=== PATIENT | male | born 1990 | race Caucasian/White ===

== ENCOUNTER 2019-06-06 18:04 | Inpatient (IN) | payer SELFPAY ==
--- NOTE | 2019-06-06 19:39 | ED ---
Shortness of Breath - HPI Summary HPI Summary: Pt is a 28 y/o M presenting to the ED with a chief complaint of shortness of breath. He states this initially came on around 3-4 days ago with sharp pains in the L side of his chest. Yesterday, 06/05, he went to [facility] for the pain, where they found pneumonia and pus pockets in his lungs, but he left AMA. He also notes fever, highest of 101, and R shoulder pain. He denies cough, recent travel, or daily medications. He states he is an IV drug user ( heroin) and a smoker. - History of Current Complaint Chief Complaint: EDShortnessOfBreath Time Seen by Provider: 06/06/19 19:28 Hx Obtained From: Patient Onset/Duration: Gradual Onset, Lasting Days, Still Present Timing: Constant Current Severity: Moderate Aggravating Factors: Nothing Alleviating Factors: Nothing Associated Signs & Symptoms: Fever - Allergy/Home Medications Allergies/Adverse Reactions: Allergies Allergy/AdvReac Type Severity Reaction Status Date / Time No Known Allergies Allergy Verified 06/06/19 18:09 Home Medications: Home Medications NK [No Home Medications Reported] 06/06/19 [History Confirmed 06/06/19] PMH/Surg Hx/FS Hx/Imm Hx Previously Healthy: Yes Endocrine/Hematology History: Denies: Hx Diabetes Cardiovascular History: Denies: Hx Hypertension Infectious Disease History: No Infectious Disease History: Denies: Traveled Outside the [place] in Last 30 Days - Family History Known Family History: Negative: Diabetes - Social History Hx Substance Use: Yes Substance Use Type: Reports: Heroin Hx Tobacco Use: Yes Smoking Status (MU): Current Every Day Smoker Review of Systems Positive: Fever Positive: Chest Pain Positive: Shortness Of Breath. Negative: Cough Positive: Arthralgia All Other Systems Reviewed And Are Negative: Yes Physical Exam - Summary Physical Exam Summary: Appearance: Generally healthy-appearing non-toxic man lying on the stretcher in [facility]. Skin: Warm, dry, no obvious rash. No splinter hemorrhages on the nails. Eyes: sclera anicteric, no conjunctival pallor. No flame hemorrhages seen in the fundi. ENT: mucous membranes moist, pharynx appears normal Neck: Supple, nontender Respiratory: Clear to auscultation, no signs of respiratory distress Cardiovascular: Normal S1, S2. No murmurs. Normal distal pulses in tibial and radial bilaterally. Abdomen: Soft, nontender, normal active bowel sounds present Musculoskeletal: Pt reports pain in the R shoulder that does feel somewhat warm with limited ROM Neurological: A&Ox3, awake and alert, mentation is normal, speech is fluent and appropriate Psychiatric: affect is normal, does not appear anxious or depressed Triage Information Reviewed: Yes Vital Signs On Initial Exam: Initial Vitals Temp Pulse Resp BP Pulse Ox 99.4 F 94 18 150/92 95 06/06/19 18:05 06/06/19 18:05 06/06/19 18:05 06/06/19 18:05 06/06/19 18:05 Vital Signs Reviewed: Yes Procedures - Sedation Patient Received Moderate/Deep Sedation with Procedure: No Diagnostics - Vital Signs Vital Signs Temp Pulse Resp BP Pulse Ox 06/06/19 18:05 99.4 F 94 18 150/92 95 - Laboratory Result Diagrams: 06/06/19 19:51 06/06/19 19:51 Lab Statement: Any lab studies that have been ordered have been reviewed, and results considered in the medical decision making process. - Radiology CXR Radiology Interpretation Completed By: ED Physician Summary of Radiographic Findings: Opacity in L lower lobe, consistent with pneumonia. Pending official radiology report. Shoulder XR Radiology Interpretation Completed By: ED Physician Summary of Radiographic Findings: No humeral fracture. There is some abnormal density in the proximal humeral metaphysis. Pending official radiology report. - CT CT Upper Extremity CT Interpretation Completed By: Radiologist Summary of CT Findings: 1. Within the bone marrow of the proximal humeral shaft centrally, there is a hyperdense lesion with chondroid matrix. One likely etiology is enchondroma. Correlation with x-rays of the right humerus recommended. 2. A few enlarged right axillary lymph nodes are identified. 3. Within the right middle lobe, there is a nodular consolidation measuring 2.2 cm in diameter. The differential includes infection and malignancy. There is an additional band of consolidation partially visualized within the right lower lobe. A follow-up chest CT is recommended. 4. Additional findings described above. ED physician has reviewed this report. - EKG 1945 Cardiac Rate: NL - 90 EKG Rhythm: Sinus Rhythm ST Segment: Normal Ectopy: None Summary of EKG Findings: EKG at 1945 shows NSR at 90 BPM, P waves, QRS complex, and T waves are within normal limits, T waves and intervals are normal, no ischemic changes. This is a normal EKG. ED physician has reviewed and interpreted this EKG. Course/Dx - Course Course Of Treatment: Pt is a 28 y/o M presenting to the ED with a chief complaint of shortness of breath. He also reports chest pain, fever, and R shoulder pain. He denies cough. Notes IVDA and smoking. On exam, pt is generally healthy, non-toxic appearing, does not have splinter hemorrhages in the nails or flame hemorrhages in the eyes, and there are no cardiac murmurs. Pt reports pain in the R shoulder that does feel somewhat warm with limited ROM. CXR shows: Opacity in L lower lobe, consistent with pneumonia. EKG at 1946 shows NSR at 90 BPM, P waves, QRS complex, and T waves are within normal limits, T waves and intervals are normal, no ischemic changes. This is a normal EKG. ED physician has reviewed and interpreted this EKG. Shoulder XR shows: No humeral fracture. There is some abnormal density in the proximal humeral metaphysis. [address] Stewart who will evaluate pt for admission. CT Upper Extremity shows: 1. Within the bone marrow of the proximal humeral shaft centrally, there is a hyperdense lesion with chondroid matrix. One likely etiology is enchondroma. Correlation with x-rays of the right humerus recommended. 2. A few enlarged right axillary lymph nodes are identified. 3. Within the right middle lobe, there is a nodular consolidation measuring 2.2 cm in diameter. The differential includes infection and malignancy. There is an additional band of consolidation partially visualized within the right lower lobe. A follow-up chest CT is recommended. 4. Additional findings described above. Dx includes bacterial endocarditis. - Diagnoses Provider Diagnoses: Bacterial endocarditis, Multiple lung abscesses Discharge ED - Sign-Out/Discharge Documenting (check all that apply): Patient Departure - Discharge Plan Condition: Stable Disposition: ADMITTED TO [facility] Referrals: [facility] [Outside] - Billing Disposition and Condition Condition: STABLE Disposition: Admitted to [facility] - Attestation Statements Document Initiated by Scribe: Yes Documenting Scribe: Parris Mathew Provider For Whom Scribe is Documenting (Include Credential): Raghu Arredondo MD. Scribe Attestation: I, Parris Mathew, scribed for Raghu Arredondo MD. on 06/07/19 at 0116. Scribe Documentation Reviewed: Yes Provider Attestation: The documentation as recorded by the andreiibe, Parris Mathew accurately reflects the service I personally performed and the decisions made by me, Raghu Arredondo MD. Status of Scribe Document: Viewed Consult Consult: 2124 - I spoke with Dr. Henderson about the pt's present condition who states either him or one of his colleages will come to evaluate the pt in the morning for consideration of aspiration of the shoulder, perhaps by IR under US guidance.
[2019-06-06 20:20] LABS: ABS Eosinophils 0.1 10^3/ul (0-0.6); ABS Lymphocytes 1.1 10^3/ul (1.0-4.8); ABS Monocytes 0.6 10^3/ul (0-0.8); ABS Neutrophils 4.5 10^3/ul (1.5-7.7); Eosinophil % 1.2 %; Hematocrit 37 % (42-52); Hemoglobin 13.1 g/dL (14.0-18.0); Lymphocyte % 17.8 %; Mean Corpuscular HGB Conc 35 g/dL (31-36); Mean Corpuscular Hemoglobin 30 pg (27-31); Mean Corpuscular Volume 84 fL (80-94); Mean Platelet Volume 7.4 fL (7.4-10.4); Platelet Count 187 10^3/uL (150-450); Red Blood Count 4.44 10^6 /uL (4.18-5.48); Red Cell Distribution Width 13 % (10-15); White Blood Count 6.3 10^3/uL (3.5-10.8)
[2019-06-06 20:37] LABS: ALT 34 U/L (7-52); AST 21 U/L (13-39); Albumin/Globulin Ratio 1.1 (1-3); Alkaline Phosphatase 56 U/L (34-104); Anion Gap 7 mmol/L (2-11); Blood Urea Nitrogen 7 mg/dL (6-24); C Reactive Protein 194.38 mg/L (<8.01); CO2 Carbon Dioxide 31 mmol/L (22-32); Calcium 9.5 mg/dL (8.6-10.3); Chloride 93 mmol/L (101-111); EGFR African American 161.3 (>60); EGFR Non-African American 133.3 (>60); Globulin 3.8 g/dL (2-4); Glucose 94 mg/dL (70-100); Potassium 3.9 mmol/L (3.5-5.0); Sodium 131 mmol/L (135-145); Total Protein 7.8 g/dL (6.4-8.9)
[2019-06-06] MEDS ORDERED: oxyCODONE/Acetamin 5/325 MG* TAB PO ONE (21:10)
[2019-06-06 21:27] LABS: HIV 4th Generation Nonreactive (Nonreactive)
[2019-06-06] MEDS ORDERED: Piperacillin/Tazobac ADVAN(*) 3.375 GM in NS 0.9% 100 ML* 100 ML IVPB ONE (23:09)
[2019-06-06] MEDS ORDERED: Nicotine* 4MG (FRUIT FLAVOR) GUM PO PRN (23:11)
[2019-06-06] MEDS ORDERED: NS 0.9% 1000 ML** 1,000 ML IV ONE (23:18)
[2019-06-06] MEDS ORDERED: Ketorolac INJ* 30 MG/ML 1 ML VIAL IV ONE (23:18)
[2019-06-06] MEDS ORDERED: Zosyn per Pharmacy* NOTE FOLLOW UP SCH (23:45)
[2019-06-06] MEDS ORDERED: Vancomycin per Pharmacy* NOTE FOLLOW UP SCH (23:45)
[2019-06-07 00:09] LABS: Troponin I 0.18 ng/mL (<0.03)
[2019-06-07] MEDS ORDERED: Aspirin EC TAB* 325 MG PO ONE (00:10)
[2019-06-07] MEDS ORDERED: Aspirin 81 mg CHEW TAB* 81 MG TAB.CHEW PO ONE (00:24)
[2019-06-07] MEDS ORDERED: Vancomycin 1500 MG IV - x ONCE IVPB ONE ×2 (01:00)
[2019-06-07 01:12] LABS: Troponin I 0.03 ng/mL (<0.03)
[2019-06-07 01:13] LABS: Influenza A Molecular NEGATIVE (Negative); Influenza B Molecular NEGATIVE (Negative)
--- NOTE | 2019-06-07 02:02 | HP ---
HISTORY AND PHYSICAL: DATE OF ADMISSION: 06/07/19 PRIMARY CARE PHYSICIAN: None. PROVIDER: Carissa Andujar NP ATTENDING PHYSICIAN: Dr. Desmond Stewart.* (DICTATED BY CARISSA ANDUJAR NP) OTHER PROVIDER: Includes Dr. Henderson and Dr. Chappell. CHIEF COMPLAINT: Shortness of breath, chest pain. HISTORY OF PRESENT ILLNESS: This is a 28-year-old male with a past medical history significant for Hep C and multi substance abuse who came to the emergency room on 06/06/19 for reports of chest pain, fever, chills, and shortness of breath with exertion. He had gone to [facility] on due to chest pain. There he was found to have had pneumonia and multiple areas of infectious pockets in bilateral lungs. At that time his blood cultures drawn there showed gram-positive cocci in both aerobic and anaerobic containers. There they also had performed a CTA of his chest which showed bilateral lower lobe pneumonia and cavity masses in the left upper and right middle lobe as well as hepatomegaly and splenomegaly. He stated that he also had a transthoracic echocardiogram done there. He opted not to stay due to the fact that his mother needed a ride and left AMA. However, he stated that he came back to the emergency room today because his mother stated that he needed to come back. He stated that he started feeling poorly about 4 to 5 days ago with generalized aches and pains, intermittent fever, night sweats. He started coughing yesterday but with no sputum production. He reports left flank, posterior back, and chest pain that is worse with breathing. He also reports right shoulder pain that started 2 days ago. He stated that he uses IV heroin about 1 to 2 times a day. He started 4 or 5 years ago, had been clean for 9 months and then started up again 2 months ago. He states that he also uses cocaine a couple of times a month with the last time being about 3 or 4 days ago. In the emergency room, labs were drawn. Chest x-ray, shoulder x-ray, and upper extremity CT was performed, as well as an EKG and received 2 tabs of Percocet for his chest pain and the Hospitalist were asked to evaluate the patient for admission. PAST MEDICAL HISTORY: Hep C. PAST SURGICAL HISTORY: None. HOME MEDICATIONS: None. ALLERGIES: No known drug allergies. FAMILY HISTORY: None. He states that his family is on the whole very healthy. SOCIAL HISTORY: He smokes about half a pack a day. Denies any alcohol use. He uses heroin 1 to 2 times daily and couple of cocaine several times a month. 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 He is not and has no children. REVIEW OF SYSTEMS: A 13-point system review was performed which was positive for low appetite, fever, chills, night sweats, generalized aches, pains, shortness of breath with exertion. Denies any nausea, vomiting, abdominal pain , issues moving his bowel or bladder. Denies any focal weakness or sensory loss , dysphagia, or visual complaints. PHYSICAL EXAMINATION GENERAL: This is a well-developed young man seen sitting up in the stretcher in mild distress. VITAL SIGNS: 99.2 Fahrenheit, 80 pulse, 27 respirations, 138/73 blood pressure , 93% oxygen on room air. HEENT: Eyes: Conjunctivae are pink and moist. PERRLA. EOMs intact. Oropharynx clear. Mucous membranes moist. NECK: Supple. RESPIRATORY: Lung sounds crackly in bilateral bases. Clear otherwise on room air. No accessory muscle use noted. CARDIAC: S1 and S2 present. No murmurs, gallops, or rubs appreciated. ABDOMEN: Soft, nontender, and nondistended with positive bowel sounds x4. MUSCULOSKELETAL: No clubbing or cyanosis of the digits. Full range of motion in all extremities. SKIN: There are multiple track moreau, particularly localized around the right hand and forearm and several on the left forearm. NEUROLOGIC: Sensation is intact to light touch. No focal deficits appreciated. PSYCH: He is alert and oriented x3. Thought content organized. Appears slightly anxious. PERTINENT LABORATORY DATA: Sodium 131, chloride 93, troponin 0.18, C-reactive protein 194.38, lactic acid 0.6, hemoglobin 13.1, hematocrit 37. DIAGNOSTIC STUDIES: Upper extremity CT scan showed within the bone marrow of the proximal humeral shaft centrally there is a hyperdense lesion with chondroid matrix. One likely etiology is enchondroma. Correlation with x-rays of the right humerus recommended. A few enlarged right axillary lymph nodes are identified within the right middle lobe. There is a nodular consolidation measuring 2.2 cm in diameter. The differential includes infection and malignancy. There is an additional band of consolidation partially visualized in the right lower lobe. Radiological readings of shoulder x-ray and chest x- ray have not been provided as of yet. ASSESSMENT AND PLAN: My impression is this is a 28-year-old male with a past medical history significant for IV substance use and hepatitis C, who is being admitted on 06/07/19 for bilateral lower lobe pneumonia with possible infection to the right humerus and possible endocarditis. 1. Bilateral lower lobe pneumonia with multiple lung abscesses. We were able to obtain records from [facility] including CT scan as well as other imaging which confirmed the presence of pneumonia. We will start the patient on vancomycin and Zosyn. He is to be on telemetry. We will check urine for legionella and strep pneumonia antigens. Records from [facility] also revealed that he has bacteremia with gram-positive cocci in both bottles which I feel will be covered using vancomycin and Zosyn, though the patient did not have any markers of sepsis. 2. Right shoulder pain. The CT scan of the right upper extremity showed a hyperdense lesion which is likely a bone abscess. There are no signs of fracture. There is also some slight effusion in the right shoulder, Dr. Henderson has been made aware. Either he or one of his colleagues will see the patient in the morning and make a determination as to whether or not an aspiration is warranted. 3. Possible endocarditis. I feel that he has endocarditis as evidenced by his myalgias, night sweats, and chest pain with the fact that he is an IV drug user. We will order a WALKER. The patient had already had a transthoracic echocardiogram done yesterday. I am looking for any vegetation growth on the valve. We will consult Infectious Disease in the morning. Again, I feel that vancomycin and Zosyn will be able to cover any pathogens causing this. 4. Elevated troponin. Troponin was 0.18. I feel like this is due to possible endocarditis. I will trend these every 3 hours until they decrease. Ordered aspirin 325 mg x1. 5. IV heroin use. The patient states that he tends to not get any withdrawal symptoms until about 48 hours after he uses. He last used this morning. When he appears to go into withdrawal which he states he is not at the moment, we will likely start him on clonidine. There is a possibility that we could start him on Suboxone. However, I would like to get Social Work involved and to be able to help connect him to a Suboxone prescriber as an outpatient. I have offered the patient the possibility of a transfer to an inpatient Rehab once he is medically stable. He stated that he will think about it. 6. DVT prophylaxis: He is a low risk for DVT. Ordered SCDs. 7. Code status is full code. CONDITION: Guarded. DISPOSITION: Is to admit OBV to [address] [place] [address]. TIME SPENT: Time spent on the patient was about 60 minutes with half of that spent [id number]. CARISSA ANDUJAR, NETWORK MANAGEMENT SPECIALIST [id number]/CPS #: [id number] ANAND
[2019-06-07] MEDS ORDERED: ZOSYN 3.375 GM Q8H per EXTENDED INFUSION IVPB SCH ×2 (04:00)
[2019-06-07 05:00] LABS: Urine Benzodiazepine Screen None Detected (None Detect); Urine Opiates Screen Presumptive Positive (None Detect)
[2019-06-07] MEDS: NS 0.9% 1000 ML** 1,000 ML IV SCH ×2 (05:33→22:17)
[2019-06-07] MEDS: Nicotine Patch Removal NOTE FOLLOW UP SCH (05:33)
[2019-06-07 05:57] LABS: ABS Eosinophils 0.1 10^3/ul (0-0.6); ABS Lymphocytes 1.2 10^3/ul (1.0-4.8); ABS Monocytes 0.9 10^3/ul (0-0.8); ABS Neutrophils 4.5 10^3/ul (1.5-7.7); Eosinophil % 1.4 %; Hematocrit 32 % (42-52); Hemoglobin 11.6 g/dL (14.0-18.0); Lymphocyte % 17.9 %; Mean Corpuscular HGB Conc 36 g/dL (31-36); Mean Corpuscular Hemoglobin 30 pg (27-31); Mean Corpuscular Volume 83 fL (80-94); Nucleated Red Blood Cells % 0.1; Platelet Count 192 10^3/uL (150-450); Red Blood Count 3.87 10^6 /uL (4.18-5.48); Red Cell Distribution Width 13 % (10-15); White Blood Count 6.7 10^3/uL (3.5-10.8)
[2019-06-07 06:13] LABS: Blood Urea Nitrogen 8 mg/dL (6-24); CO2 Carbon Dioxide 26 mmol/L (22-32); Calcium 8.7 mg/dL (8.6-10.3); Chloride 99 mmol/L (101-111); EGFR African American 153.7 (>60); Glucose 100 mg/dL (70-100); Sodium 133 mmol/L (135-145)
[2019-06-07 06:15] LABS: Anion Gap 8 mmol/L (2-11)
[2019-06-07] MEDS: Acetaminophen TAB* 325 MG PO SCH ×2 (09:02→15:02)
[2019-06-07] MEDS: Vancomycin(*) 1,000 MG in NS 0.9% 250 ML* 250 ML IV SCH ×3 (09:09→22:17)
[2019-06-07] MEDS: Nicotine PATCH 14 MG/24 HR* PATCH TRANSDERM SCH (09:09)
[2019-06-07] MEDS: Ketorolac INJ* 30 MG/ML 1 ML VIAL IV PRN ×2 (09:29→17:02)
[2019-06-07] MEDS ORDERED: Cefepime 1 GM in Dextrose(*) 1 GM/50 ML BAG IV SCH (10:00)
[2019-06-07] MEDS ORDERED: Zosyn per Pharmacy* NOTE FOLLOW UP SCH (10:00)
[2019-06-07 11:03] LABS: Body Fluid Source Synovial Fluid
--- NOTE | 2019-06-07 11:03 | CONS ---
CONSULTATION REPORT: DATE OF CONSULT: 06/07/19 REQUESTING PROVIDER: Carissa Andujar NP. CONSULTING SERVICE: Infectious Disease. REASON FOR CONSULT: Bacteremia, shoulder pain. IMPRESSION: 1. Methicillin-resistant Staphylococcus aureus bacteremia from hospital stay at [facility] on 06/05/19, we are checking from the micro lab there. His blood cultures here are positive and show gram-positive cocci in clusters. PCR is pending. He has right shoulder pain with decreased sense of motion but not significant effusion, some tenderness to palpation. He is going to have an aspiration of the joint to make sure there is no septic arthritis. It could be referred pain from his right lung process, though I would not have expected the range of motion abnormality. He does have on the CT of the shoulder that includes part of the right lung weinstein which looks like about a 2 cm peripheral abscess or septic emboli. He had a mildly elevated troponin. He could have an infectious endocarditis as well in the setting of heroin injection which is in brief remission. 2. Hepatitis C. RECOMMENDATIONS: Stop Zosyn. Continue vancomycin, goal trough 15 to 20. We will await the blood cultures here. He is going to have the shoulder joint aspirated as well as a transesophageal echocardiogram today. HISTORY OF PRESENT ILLNESS: A 28-year-old man admitted with shoulder pain and fever. He had felt well until about a week ago. He had continued to inject heroin through that time, then was in the hospital at [place] 06/05/19, apparently just initially in the ER and then sounds like admitted overnight. His blood cultures per micro lab at [facility] growing MRSA. He was on IV antibiotics in the hospital, left against medical advise, on no oral antibiotics. He was doing okay for a couple of days and then because of worsening right shoulder pain, cough, shortness of breath, and fever, his mother convinced him to come to the hospital here. His CT scan of the shoulder showed the right lung process and a possible enchondroma in the proximal humerus. The right shoulder pain has been the most irritating to him, and yesterday, he could not even move his arm. Today, he can move it a little bit more. He has had some pain medicine. At rest, it is not painful. When he moves it, he is noticing some discomfort with extension and abduction. No other joints are bothering him. Does not have any back pain. He is having central and right chest pain. He has no prosthetic material present. PAST MEDICAL HISTORY: Hepatitis C. ALLERGIES: No known drug allergies. MEDICATIONS: 1. Tylenol. 2. Ketorolac as needed. 3. Nicotine gum as needed. 4. Oxycodone as needed. 5. Vancomycin 1 g IV every 6 hours. 6. Zosyn 3.375 g IV every 8 hours. SOCIAL HISTORY: Lives in [place] with his partner. He injects heroin. Smokes half a pack a day. He uses cocaine several times a month as well. He works in [employer] business. FAMILY HISTORY: No recurrent infections. Everyone is healthy as far as he knows. REVIEW OF SYSTEMS: All negative except as noted above to a 14-point review of systems. PHYSICAL EXAM: Vital Signs: Temperature 36.6, heart rate 70, respiratory rate 18, blood pressure 123/60, oxygen saturation 99% on room air. In general, he is awake, not in distress. Neurologic: He is oriented x3, follows all commands. Sensation is intact to light touch in the upper and lower extremities bilaterally. Strength is 5/5 in the wrist flexors, extensors, intrinsic hand muscles, biceps, triceps bilaterally, and 5/5 in the quadriceps, tibialis anterior, gastrocnemius bilaterally. Sensation intact to light touch in both feet. There is no lower extremity clonus. HEENT: There is no conjunctival hemorrhage. Oropharynx without lesions. Neck: Supple without mass. Heart: Regular rate and rhythm without murmurs, rubs, or gallops. Lungs : Clear to auscultation bilaterally. Abdomen: Soft, nontender, and nondistended. There are bowel sounds present. Skin: There is no rash or splinter hemorrhage. There are some stigmata of injection in the bilateral upper extremities. Musculoskeletal: There is no spinal tenderness to palpation. There is no joint effusion. There is right shoulder anterior tenderness to palpation without obvious effusion. He has decreased abduction and extension due to pain, both active and passive range of motion. DIAGNOSTIC STUDIES/LAB DATA: White blood cell count 6, hemoglobin 11, platelets 192. Creatinine is 0.7. Troponin yesterday 0.18, today is 0.03. CRP yesterday 194. Please see impressions and recommendations outlined above that I discussed with ARMOND Dykes. Thanks for asking me to see Mr. Humphreys in consultation. [id number]/CPS #: [id number] [facility] [place]
[2019-06-07 12:34] LABS: Body Fluid Mono 28 %
--- NOTE | 2019-06-07 12:49 | PN ---
Progress Note - Progress Note Date of Service: 06/07/19 SOAP: Subjective: 28 yo male, admitted for sepsis yesterday evening. Had c/o right shoulder pain upon presentation in the ED last night and there was concern for a septic shoulder. CT scan last night not specifically concerning for joint effusion. Had started antibiotics at [place] 06/05, but still had fever, chills and sweats, therefore came to the ED here 06/06. He reports today the shoulder is doing better. Objective: Mature male, NAD, laying in the bed. He was able to raise his arm some to shake my hand when I came in to the room and said hello. He can move the shoulder, but motion is limited due to pain. He had an US guided aspiration earlier and also told the radiologist the shoulder was feeling better. Aspiration was only 0.5 cc's of a slightly bloody aspirate. Gram stain is negative for bacteria and fluid aspirate WBC count is 24. Assessment: Improving right shoulder pain Plan: He reports he may have slept funny on the shoulder, causing his pain. It is also possible, similar to a Kehr's sign, that this is a referred pain from what is going on in his thorax. But with no fluid, a negative gram stain and a WBC count of 24, I discussed with him this should not be a septic shoulder. No restrictions in regards to the right arm.
[2019-06-07] MEDS ORDERED: Midazolam* 1 MG/ML 2 ML VIAL (2 MG) ONE (13:10)
[2019-06-07] MEDS ORDERED: KETAMINE HCL* 50 MG/ML 10 ML VIAL ONE (13:11)
[2019-06-07] MEDS ORDERED: Propofol* 10 MG/ML 20 ML BTL ONE ×3 (13:59→14:03)
[2019-06-07] MEDS ORDERED: Naloxone* 0.4 MG/ML 1 ML VIAL IV PRN (14:34)
[2019-06-07] MEDS ORDERED: Acetaminophen TAB* 325 MG ONE (15:01)
--- NOTE | 2019-06-07 15:12 | CONS ---
CC: Dr. Henderson * CONSULTATION REPORT: DATE OF CONSULT: 06/07/19 ATTENDING ORTHOPEDIC PROVIDER: Dr. Phong Henderson. PRIMARY CARE PHYSICIAN: None. CHIEF COMPLAINT: Right shoulder pain. HISTORY OF PRESENT ILLNESS: The patient is a 28-year-old IV drug user, who presented to [facility] on 06/06/19 with complaints of chest pain, fever, chills, shortness of breath. On 06/07/19, Orthopedics was consulted for right shoulder pain. The patient has known pneumonia and bacteremia. He is being worked up for endocarditis and bacteremia. Reports that yesterday he had a rather sudden onset of severe right shoulder pain with inability to move the shoulder. Today, the shoulder is feeling better. He is able to move it better, but still has quite a bit of soreness. He has no numbness or tingling and the shoulder pain is aching. He has no pain of other joints. PAST MEDICAL HISTORY: Significant for hep C. He is an IV heroine user. PAST SURGICAL HISTORY: None. HOME MEDICATIONS: None. ALLERGIES: No known drug allergies. FAMILY HISTORY: None pertinent reported. SOCIAL HISTORY: He smokes half a pack a day. No alcohol use. He uses heroin 1 to 2 times daily and cocaine several times a month. 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 REVIEW OF SYSTEMS: General: Positive for fever and chills upon admission, no longer experiencing. HEENT: No headache. Cardiac: Positive for left-sided chest pain. Respiratory: Positive for left-sided chest pain with respiration. No shortness of breath. Abdomen: No abdominal pain, nausea, vomiting, diarrhea. : No dysuria. Musculoskeletal: Positive for right shoulder pain aggravated by movement. Neuro: No numbness or tingling of the extremities. PHYSICAL EXAM: The patient is in no acute distress. HEENT: Normocephalic, atraumatic. Cardiac: S1, S2. No audible murmur. Respiratory: Good air exchange in the right lung field. Lungs are clear to auscultation bilaterally. The patient is hesitant to take full deep breaths due to pleuritic pain on the left side. Abdomen: Nondistended, nontender to palpation. Bilateral upper and lower extremities: Skin envelope intact. He does have some track moreau on bilateral upper extremities that are healed over without any obvious abscess. Able to flex and extend at all joints of the left upper extremity and bilateral lower extremities without any pain. Right upper extremity: Able to flex and extend at digits, wrist, elbow without any pain. He does have pain with active range of motion of the right shoulder. Passively, I am able to forward flex and abduct him to about 110 degrees before eliciting pain. He is mildly tender to palpation over the supraspinatus. Neuro: Sensation intact to light touch throughout bilateral upper and lower extremities and radial pulse 2+ right upper extremity. DIAGNOSTIC STUDIES/LAB DATA: White blood cell count 6.7. Sodium 133, potassium 4.2. CRP is 194. Shoulder aspirate demonstrates fluid wbc's of 24. Right shoulder synovial fluid, no organisms seen on preliminary cultures, no growth to date. Shoulder CT: Within the proximal humerus, there is a hypodensity consistent with an enchondroma. ASSESSMENT: Consulted for right shoulder pain to rule out a right septic shoulder. I have low suspicion for a septic shoulder with negative Gram stain and synovial fluid white blood cell count of only 24. We will continue to follow cultures, but do not expect any bacterial growth. PLAN: No weightbearing or range of motion restrictions to the right shoulder. May utilize anti-inflammatory medications and ice for pain relief. Please consult Orthopedics with any further concerns. ARMOND PEREZ [id number]/CPS #: [id number] ANAND
--- NOTE | 2019-06-07 16:37 | TEE ---
*[facility]* [place] [address] Fax #: [phone] Transesophageal Echocardiogram Patient: Lewis Humphreys : 1990 Study Date: 06/07/2019 Age: 28 Gender: M HR: 89 bpm Height: 70 in /177.8 cm BSA: 1.99 m^2 Weight: 174.6 lb /79.4 kg BMI: 25.1 kg/m^2 *Submarine Element Coordinator: * Radha Leyva [facility] *Referring Physician: * Carissa Andujar *Reading Physician: * Thor Stokes MD Indications: Bacteremia. History: Hepatitis C and IVDA. Conclusions Summary: - Left ventricle: Systolic function is normal. The estimated ejection fraction is 55-60%, by visual assessment. - Left atrium: There is no evidence of a thrombus in the atrial cavity or appendage. - Atrial septum: A PFO is not demonstrated by color Doppler. Rare late bubbles were observed. Bubble Study image 40. - Mitral valve: There is trace regurgitation. - Tricuspid valve: There is trace to mild regurgitation. - No obvious vegetations seen. No obvious masses or clots. Study data: Diagnostic Transesophageal Echocardiogram Consent: The risks and benefits of the procedure, including alternatives were discussed with the patient and/or their health care physician relations representative and written informed consent was obtained. Procedure: Initial setup: The patient was brought to the laboratory in the fasting state.Intravenous access was obtained. Surface ECG leads, heart rate, heart rhythm, blood pressure measurements, pulse oximetric signals, and mainstream end-tidal CO2 tracings were monitored throughout the procedure. Sedation. Moderate sedation was administered by nursing staff. History and physical as well as labs were reviewed. An oral bite block was inserted for protection of oral dentition. The patient was placed in the left lateral decubitus position. A transesophageal probe was inserted by the attending nike athlete. Transesophageal echocardiography was performed, and all standard views were attempted within the limitations of patient tolerance and safety. Multiple 2D, color flow Doppler and spectral Doppler images were obtained. The transesophageal probe was removed. Please see Anesthesia report for medications given. Dr. Cele Iqbal DO was the performing Anesthesiologist during the procedure. A bubble study was performed. Location: Operating room. Patient status: Inpatient. Patient room number: 421. Study completion: The patient tolerated the procedure well. There were no complications. Findings Left ventricle: The cavity size is normal. Hypertrophy is noted. Systolic function is normal. The estimated ejection fraction is 55-60%, by visual assessment. Wall motion is normal; there are no regional wall motion abnormalities. Right ventricle: The cavity size is normal. Systolic function is normal. Left atrium: The atrium is normal in size. Emptying velocity is normal. There is no evidence of a thrombus in the atrial cavity or appendage. Right atrium: The atrium is normal in size. There is no evidence of a thrombus in the atrial cavity or appendage. Atrial septum: A PFO is not demonstrated by color Doppler. Rare late bubbles were observed. Bubble Study image 40. Mitral valve: The leaflets are normal thickness. There is no evidence of a vegetation. There is no evidence of stenosis. There is trace regurgitation. Aortic valve: The leaflets are normal thickness. There is no evidence of a vegetation. There is no evidence of stenosis. There is no significant regurgitation. Tricuspid valve: There is no evidence of a vegetation. There is no evidence of stenosis. There is trace to mild regurgitation. Pulmonic valve: The valve is structurally normal. There is no evidence of a vegetation. There is no regurgitation. Aorta: The aorta is noncalcified. Aortic root: The aortic root is appears normal. Ascending aorta: The ascending aorta is appears normal. Pericardium: There is no significant pericardial effusion. Pulmonary arteries: The main pulmonary artery is normal-sized. Systemic veins: Inferior vena cava: The vessel is normal in size. Superior vena cava: The vessel is appears normal. Pulmonary veins: Well visualized. The Pulmonary veins appear normal. Measurements Aortic valve Value Ref Aortic root Value Ref Kathryn diam, S (L) 1.7 cm 2.0 - 3.2 Root diam 2.9 cm <3.7 Mitral valve Value Ref Ascending aorta Value Ref Peak E 1.14 m/sec --------- AAo AP diam, S 2.9 cm ---- Peak A 0.64 m/sec --------- AAo AP diam/bsa, S 1.4 cm/m^2 ---- Decel time 212 ms --------- Peak grad, D 5.2 mm Hg --------- Peak E/A ratio 1.78 --------- Legend: (L) and (H) nikki values outside specified reference range. Prepared and electronically signed by Thor Stokes MD 06/07/2019 16:36
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
[2019-06-07] MEDS ORDERED: Vancomycin Trough Check NOTE FOLLOW UP ONE (20:00)
[2019-06-08] MEDS: Ketorolac INJ* 30 MG/ML 1 ML VIAL IV PRN ×3 (00:06→20:13)
[2019-06-08] MEDS: Acetaminophen TAB* 325 MG PO SCH ×4 (00:08→20:12)
[2019-06-08] MEDS: cloNIDine TAB* 0.1 MG PO PRN ×2 (01:19→09:22)
[2019-06-08] MEDS: Vancomycin(*) 1,000 MG in NS 0.9% 250 ML* 250 ML IV SCH ×4 (02:42→20:12)
[2019-06-08] MEDS ORDERED: Vancomycin Trough Check NOTE FOLLOW UP ONE (06:00)
[2019-06-08] MEDS: Nicotine Patch Removal NOTE FOLLOW UP SCH (06:20)
[2019-06-08] MEDS: Nicotine PATCH 14 MG/24 HR* PATCH TRANSDERM SCH (09:06)
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
[2019-06-08] MEDS: NS 0.9% 1000 ML** 1,000 ML IV SCH (11:40)
[2019-06-08] MEDS: Gabapentin CAP(*) 300 MG PO SCH ×3 (11:40→20:14)
[2019-06-08] MEDS ORDERED: Gabapentin CAP(*) 300 MG PO SCH (14:00)
[2019-06-08] MEDS: LORazepam TAB(*) 0.5 MG PO PRN ×2 (14:26→21:57)
[2019-06-08 16:32] LABS: ABS Eosinophils 0.1 10^3/ul (0-0.6); ABS Lymphocytes 0.9 10^3/ul (1.0-4.8); ABS Monocytes 0.6 10^3/ul (0-0.8); Eosinophil % 1.5 %; Hematocrit 33 % (42-52); Hemoglobin 11.8 g/dL (14.0-18.0); Lymphocyte % 16.4 %; Mean Corpuscular HGB Conc 36 g/dL (31-36); Mean Corpuscular Hemoglobin 30 pg (27-31); Mean Corpuscular Volume 83 fL (80-94); Mean Platelet Volume 7.2 fL (7.4-10.4); Nucleated Red Blood Cells % 0.1; Platelet Count 244 10^3/uL (150-450); Red Blood Count 3.95 10^6 /uL (4.18-5.48); Red Cell Distribution Width 13 % (10-15); White Blood Count 5.6 10^3/uL (3.5-10.8)
[2019-06-08 16:47] LABS: BUN/Creatinine Ratio 11.6 (8-20); Calcium 9.1 mg/dL (8.6-10.3); EGFR Non-African American 135.6 (>60); Potassium 3.7 mmol/L (3.5-5.0)
[2019-06-09] MEDS: Vancomycin(*) 1,000 MG in NS 0.9% 250 ML* 250 ML IV SCH ×4 (02:23→21:40)
[2019-06-09] MEDS: Ondansetron INJ* 2 MG/ML VIAL IV PRN (02:37)
[2019-06-09] MEDS: cloNIDine TAB* 0.1 MG PO PRN ×4 (02:37→19:45)
[2019-06-09] MEDS: LORazepam TAB(*) 0.5 MG PO PRN ×3 (02:37→13:53)
[2019-06-09] MEDS: Ketorolac INJ* 30 MG/ML 1 ML VIAL IV PRN ×2 (05:13→19:43)
[2019-06-09] MEDS: NS 0.9% 1000 ML** 1,000 ML IV SCH (05:13)
[2019-06-09] MEDS: Acetaminophen TAB* 325 MG PO SCH ×3 (08:01→19:44)
[2019-06-09] MEDS: Gabapentin CAP(*) 300 MG PO SCH ×3 (08:01→19:44)
[2019-06-09] MEDS: Nicotine PATCH 14 MG/24 HR* PATCH TRANSDERM SCH (08:02)
[2019-06-09] MEDS: Nicotine Patch Removal NOTE FOLLOW UP SCH (08:02)
[2019-06-09 13:55] LABS: ABS Basophils 0.1 10^3/ul (0-0.2); ABS Eosinophils 0.1 10^3/ul (0-0.6); ABS Lymphocytes 1.1 10^3/ul (1.0-4.8); ABS Monocytes 0.5 10^3/ul (0-0.8); ABS Neutrophils 5.3 10^3/ul (1.5-7.7); Eosinophil % 1.5 %; Hematocrit 33 % (42-52); Hemoglobin 11.8 g/dL (14.0-18.0); Mean Corpuscular HGB Conc 36 g/dL (31-36); Mean Corpuscular Hemoglobin 30 pg (27-31); Mean Corpuscular Volume 83 fL (80-94); Platelet Count 283 10^3/uL (150-450); Red Blood Count 3.96 10^6 /uL (4.18-5.48); Red Cell Distribution Width 13 % (10-15); White Blood Count 7.1 10^3/uL (3.5-10.8)
[2019-06-09 14:15] LABS: BUN/Creatinine Ratio 8.7 (8-20); EGFR Non-African American 135.6 (>60); Potassium 3.7 mmol/L (3.5-5.0)
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
[2019-06-09] MEDS: LORazepam TAB(*) 1 MG PO PRN (19:45)
[2019-06-10] MEDS: Ondansetron INJ* 2 MG/ML VIAL IV PRN ×2 (00:16→03:20)
[2019-06-10] MEDS: LORazepam TAB(*) 1 MG PO PRN ×6 (00:16→22:24)
[2019-06-10] MEDS: Ketorolac INJ* 30 MG/ML 1 ML VIAL IV PRN ×4 (01:20→20:08)
[2019-06-10] MEDS ORDERED: Morphine INJ* 4 MG/ML 1 ML SYRINGE (NEW SYRINGE VERSION) IV ONE (01:35)
[2019-06-10] MEDS: NS 0.9% 1000 ML** 1,000 ML IV SCH (02:45)
[2019-06-10] MEDS: Vancomycin(*) 1,000 MG in NS 0.9% 250 ML* 250 ML IV SCH ×4 (02:45→20:08)
[2019-06-10] MEDS: cloNIDine TAB* 0.1 MG PO PRN ×2 (03:19→12:55)
[2019-06-10] MEDS: Acetaminophen TAB* 325 MG PO SCH ×3 (07:42→20:08)
[2019-06-10] MEDS: Gabapentin CAP(*) 300 MG PO SCH ×4 (07:43→20:09)
[2019-06-10] MEDS: Nicotine Patch Removal NOTE FOLLOW UP SCH (07:53)
[2019-06-10] MEDS: Nicotine PATCH 14 MG/24 HR* PATCH TRANSDERM SCH (07:53)
[2019-06-10] MEDS ORDERED: oxyCODONE TAB* 5 MG TAB PO PRN (13:50)
[2019-06-10] MEDS: cloNIDine TAB* 0.1 MG PO SCH ×2 (13:56→20:08)
[2019-06-10] MEDS: oxyCODONE TAB* 5 MG TAB PO PRN ×3 (14:10→22:24)
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
[2019-06-11] MEDS: Vancomycin(*) 1,000 MG in NS 0.9% 250 ML* 250 ML IV SCH ×3 (02:17→14:04)
[2019-06-11] MEDS: LORazepam TAB(*) 1 MG PO PRN ×3 (02:17→20:49)
[2019-06-11] MEDS: oxyCODONE TAB* 5 MG TAB PO PRN ×3 (02:18→10:48)
[2019-06-11] MEDS: Ketorolac INJ* 30 MG/ML 1 ML VIAL IV PRN ×2 (03:50→13:54)
[2019-06-11] MEDS: Nicotine Patch Removal NOTE FOLLOW UP SCH (06:08)
[2019-06-11] MEDS ORDERED: Vancomycin Trough Check NOTE FOLLOW UP ONE (08:00)
[2019-06-11] MEDS: Acetaminophen TAB* 325 MG PO SCH ×3 (08:50→20:48)
[2019-06-11] MEDS: Gabapentin CAP(*) 300 MG PO SCH ×3 (08:54→20:49)
[2019-06-11] MEDS: cloNIDine TAB* 0.1 MG PO SCH ×3 (08:54→20:50)
[2019-06-11] MEDS: NS 0.9% 1000 ML** 1,000 ML IV SCH (09:01)
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
--- NOTE | 2019-06-11 10:20 | PN ---
Progress Note - Progress Note Date of Service: 06/11/19 SOAP: Subjective: []Pt seen at bedside. He has no right shoulder pain, reports his left shoulder is now a bit sore but no restriction in use or range of motion due to pain. Objective: []Gen: NAD, nontoxic appearing RUE: Right shoulder is without erythema, edema or tenderness to palpation. Able to actively ff and abd 0-110 without pain. NVI distally. LUE: left shoulder without erythema, edema or tenderness on palpation. Able to actively forward flex and abduct 0-110 without pain. Assessment: []R shoulder pain, US guided aspiration done, no growth on culture L shoulder pain. No tenderness to palpation and nonpainful ROM. Report any worsening or change Plan: []WBAT BL UE No growth on final cultures R shoulder Vital Signs Temp 98.9 F 06/11/19 07:15 Pulse 67 06/11/19 07:15 Resp 20 06/11/19 08:54 BP 136/89 06/11/19 07:15 Pulse Ox 95 06/11/19 07:15 Intake & Output 06/10/19 06/11/19 06/11/19 18:59 06:59 18:59 Intake Total 280 4430 Output Total 0 Balance 280 4430 Intake: IV Fluids 2150 ABX - VANCOMYCIN 500 NS (0.9%) 1650 IVPB 280 ABX - VANCOMYCIN 280 Oral 0 2280 Output: Urine 0 Other: # Bowel Movements 0 Microbiology 06/07/19 15:42 Sputum Expectorated Gram Stain - Final 06/07/19 15:42 Sputum Expectorated Sputum Culture - Final MRSA Normal Keisha 06/07/19 10:37 Joint Fluid(Synovial) - Shoulder Right Gram Stain - Final 06/07/19 10:37 Joint Fluid(Synovial) - Shoulder Right Body Fluid Culture - Final No Growth Day 4 06/07/19 10:37 Joint Fluid(Synovial) - Shoulder Right Skin and Soft Tissue MRSA/MSSA (PCR - Final Mrsa Negative S.aureus Negative 06/07/19 10:37 Body Fluid - Shoulder Right Anaerobic Culture - Final No Growth Day 4 06/08/19 16:15 No Source Provided Aerobic Blood Culture - Preliminary No Growth Day 2 06/08/19 16:15 No Source Provided Anaerobic Blood Culture - Final Staphylococcus Epidermidis 06/08/19 16:15 No Source Provided Blood MRSA/MSSA (PCR) - Final Mrsa Negative S.aureus Negative 06/08/19 16:15 No Source Provided Aerobic Blood Culture - Final MRSA 06/08/19 16:15 No Source Provided Anaerobic Blood Culture - Preliminary No Growth Day 2 06/08/19 16:15 No Source Provided Blood MRSA/MSSA (PCR) - Final Mrsa Positive S.aureus Positive 06/09/19 13:42 No Source Provided Aerobic Blood Culture - Preliminary No Growth Day 1 06/09/19 13:42 No Source Provided Anaerobic Blood Culture - Preliminary No Growth Day 1
[2019-06-11] MEDS: Nicotine PATCH 14 MG/24 HR* PATCH TRANSDERM SCH (10:49)
[2019-06-11 10:59] LABS: EGFR African American 178.9 (>60); EGFR Non-African American 147.9 (>60)
[2019-06-11 11:02] LABS: Vancomycin Trough 7.9 mcg/mL
[2019-06-11] MEDS ORDERED: Vancomycin(*) 1,000 MG in NS 0.9% 250 ML* 250 ML IV SCH (13:00)
[2019-06-11] MEDS: HYDROmorphone INJ1* 1 MG/ML SYRINGE IV PRN ×2 (17:53→21:54)
[2019-06-11] MEDS: Vancomycin(*) 1,250 MG in NS 0.9% 250 ML* 250 ML IV SCH (18:34)
[2019-06-11] MEDS: HYDROmorphone TAB* 4 MG PO PRN ×2 (19:04→22:54)
[2019-06-11] MEDS: Ondansetron INJ* 2 MG/ML VIAL IV PRN (21:54)
[2019-06-12] MEDS: LORazepam TAB(*) 1 MG PO PRN ×2 (01:41→19:48)
[2019-06-12] MEDS: Vancomycin(*) 1,250 MG in NS 0.9% 250 ML* 250 ML IV SCH ×4 (01:42→18:21)
[2019-06-12] MEDS: NS 0.9% 1000 ML** 1,000 ML IV SCH ×2 (01:46→20:24)
[2019-06-12] MEDS: HYDROmorphone TAB* 4 MG PO PRN ×5 (03:00→19:49)
[2019-06-12] MEDS: HYDROmorphone INJ1* 1 MG/ML SYRINGE IV PRN ×3 (04:43→15:28)
[2019-06-12] MEDS: Nicotine Patch Removal NOTE FOLLOW UP SCH (05:49)
[2019-06-12] MEDS: Acetaminophen TAB* 325 MG PO SCH ×3 (08:40→19:47)
[2019-06-12] MEDS: cloNIDine TAB* 0.1 MG PO SCH ×3 (08:41→19:48)
[2019-06-12] MEDS: Gabapentin CAP(*) 300 MG PO SCH ×3 (08:41→19:48)
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
--- NOTE | 2019-06-12 10:19 | PN ---
Progress Note - Progress Note Date of Service: 06/12/19 SOAP: Subjective: []Pt seen at bedside. He reports no shoulder pain and no other joint pain. Tmax 100.2 yesterday. Objective: []Gen: NAD, nontoxic appearing RUE: Right shoulder is without erythema, edema or tenderness to palpation. Able to actively ff and abd 0-110 without pain. NVI distally. LUE: left shoulder without erythema, edema or tenderness on palpation. Able to actively forward flex and abduct 0-110 without pain. NVI distally. Assessment: []BL shoulder pain, resolved Plan: []WBAT BL UE Will sign off for orthopedics, please consult our team with any questions or concerns Vital Signs Temp 98.7 F 06/12/19 07:15 Pulse 77 06/12/19 07:15 Resp 20 06/12/19 10:03 BP 130/69 06/12/19 07:15 Pulse Ox 93 06/12/19 07:15 Intake & Output 06/11/19 06/12/19 06/12/19 18:59 06:59 18:59 Intake Total 882 4673 Balance 882 4673 Intake: IV Fluids 642 1773 ABX - VANCOMYCIN 367 NS (0.9%) 275 1773 IVPB 300 ABX - VANCOMYCIN 300 Oral 240 2600 Other: Estimated Void Large # Bowel Movements 0 # Voids 1 Laboratory Last Values WBC 7.1 10^3/uL (3.5-10.8) 06/09/19 13:42 RBC 3.96 10^6 /uL (4.18-5.48) L 06/09/19 13:42 Hgb 11.8 g/dL (14.0-18.0) L 06/09/19 13:42 Hct 33 % (42-52) L 06/09/19 13:42 MCV 83 fL (80-94) 06/09/19 13:42 MCH 30 pg (27-31) 06/09/19 13:42 MCHC 36 g/dL (31-36) 06/09/19 13:42 RDW 13 % (10-15) 06/09/19 13:42 Plt Count 283 10^3/uL (150-450) 06/09/19 13:42 MPV 7.0 fL (7.4-10.4) L 06/09/19 13:42 Neut % (Auto) 74.7 % 06/09/19 13:42 Lymph % (Auto) 16.0 % 06/09/19 13:42 [place] % (Auto) 6.8 % 06/09/19 13:42 Eos % (Auto) 1.5 % 06/09/19 13:42 Baso % (Auto) 1.0 % 06/09/19 13:42 Absolute Neuts (auto) 5.3 10^3/ul (1.5-7.7) 06/09/19 13:42 Absolute Lymphs (auto) 1.1 10^3/ul (1.0-4.8) 06/09/19 13:42 Absolute Monos (auto) 0.5 10^3/ul (0-0.8) 06/09/19 13:42 Absolute Eos (auto) 0.1 10^3/ul (0-0.6) 06/09/19 13:42 Absolute Basos (auto) 0.1 10^3/ul (0-0.2) 06/09/19 13:42 Absolute Nucleated RBC 0.0 10^3/ul 06/09/19 13:42 Nucleated RBC % 0.0 06/09/19 13:42 Sodium 140 mmol/L (135-145) 06/09/19 13:42 Potassium 3.7 mmol/L (3.5-5.0) 06/09/19 13:42 Chloride 106 mmol/L (101-111) 06/09/19 13:42 Carbon Dioxide 26 mmol/L (22-32) 06/09/19 13:42 Anion Gap 8 mmol/L (2-11) 06/09/19 13:42 BUN 6 mg/dL (6-24) 06/09/19 13:42 Creatinine 0.64 mg/dL (0.67-1.17) L 06/11/19 10:24 Est GFR ( Amer) 178.9 (>60) 06/11/19 10:24 Est GFR (Non-Af Amer) 147.9 (>60) 06/11/19 10:24 BUN/Creatinine Ratio 8.7 (8-20) 06/09/19 13:42 Glucose 116 mg/dL (70-100) H 06/09/19 13:42 Lactic Acid 0.6 mmol/L (0.5-2.0) 06/06/19 19:51 Calcium 9.0 mg/dL (8.6-10.3) 06/09/19 13:42 Total Bilirubin 0.50 mg/dL (0.2-1.0) 06/06/19 19:51 AST 21 U/L (13-39) 06/06/19 19:51 ALT 34 U/L (7-52) 06/06/19 19:51 Alkaline Phosphatase 56 U/L (34-104) 06/06/19 19:51 Troponin I 0.03 ng/mL (<0.03) H* 06/07/19 00:20 C-Reactive Protein 148.38 mg/L (<8.01) H 06/08/19 16:15 Total Protein 7.8 g/dL (6.4-8.9) 06/06/19 19:51 Albumin 4.0 g/dL (3.2-5.2) 06/06/19 19:51 Globulin 3.8 g/dL (2-4) 06/06/19 19:51 Albumin/Globulin Ratio 1.1 (1-3) 06/06/19 19:51 Fluid Source Synovial fluid 06/07/19 10:37 Fluid Volume 0.5 mL 06/07/19 10:37 Fluid Color [place] 06/07/19 10:37 Fluid Appearance Cloudy 06/07/19 10:37 Fluid WBC 24 /mcL (0-144318) 06/07/19 10:37 Fluid RBC 36976 /mcL 06/07/19 10:37 Fluid Tot Cell Count 50 06/07/19 10:37 Fluid Neutrophils 54 % 06/07/19 10:37 Fluid Lymphocytes 18 % 06/07/19 10:37 Fluid Monocytes 28 % 06/07/19 10:37 Fluid Cell Count Rvw By 06/07/19 10:37 Fluid Comment 06/07/19 10:37 Vancomycin Trough 7.9 mcg/mL 06/11/19 10:24 Urine Opiates Screen Presumptive positive (None Detect) A 06/06/19 04:21 Ur Barbiturates Screen None detected (None Detect) 06/06/19 04:21 Ur Phencyclidine Scrn None detected (None Detect) 06/06/19 04:21 Ur Amphetamines Screen None detected (None Detect) 06/06/19 04:21 U Benzodiazepines Scrn None detected (None Detect) 06/06/19 04:21 Urine Cocaine Screen Presumptive positive (None Detect) A 06/06/19 04:21 U Cannabinoids Screen None detected (None Detect) 06/06/19 04:21 HIV 1&2 Ab/P24 Ag 4thGn Nonreactive (Nonreactive) 06/06/19 19:51 Influenza A (Rapid) Negative (Negative) 06/07/19 00:38 Influenza B (Rapid) Negative (Negative) 06/07/19 00:38
--- NOTE | 2019-06-12 10:25 | PN ---
Progress Note - Progress Note Date of Service: 06/12/19 SOAP: Subjective: CC: MRSA bacteremia HPI: Mr. Humphreys is a 28 yo male with PMH significant for IV drug use, and hepatitis C; who was transferred from [facility] for bacteremia, PNA, lung abscess and right shoulder pain. Denies fever, chills, nausea, vomiting, diarrhea, joint pain, back pain, or ABD pain. He is moving all extremities. He reports discomfort with a deep breath. Objective: Vital Signs 06/12/19 06/12/19 06/12/19 06:59 07:15 08:41 Temperature 98.7 F Pulse Rate 77 Respiratory 16 24 14 Rate Blood Pressure 130/69 (mmHg) O2 Sat by Pulse 93 Oximetry Physical Exam: General: NAD, laying in bed Neurological: Alert and Oriented HEENT: Moist MM Cardiovascular: Heart rate regular Respiratory: Lung sounds clear bilateral Abdominal: Bowel sounds present; ABD soft, non tender and non distended MSK: No tenderness with palpation of the neck, back or spine. No edematous joints. No erythema to joints. Moves all extremities Skin: No rash Laboratory Results - last 24 hr 06/11/19 10:24 Creatinine 0.64 L Est GFR ( Amer) 178.9 Est GFR (Non-Af Amer) 147.9 Vancomycin Trough 7.9 Microbiology 06/08/19 16:15 Aerobic Blood Culture - Preliminary No Source Provided No Growth Day 4 Anaerobic Blood Culture - Final Staphylococcus Epidermidis Blood MRSA/MSSA (PCR) - Final Mrsa Negative S.aureus Negative 06/08/19 16:15 Aerobic Blood Culture - Final No Source Provided MRSA Anaerobic Blood Culture - Preliminary No Growth Day 3 Blood MRSA/MSSA (PCR) - Final Mrsa Positive S.aureus Positive 06/09/19 13:42 Aerobic Blood Culture - Preliminary No Source Provided No Growth Day 2 Anaerobic Blood Culture - Preliminary No Growth Day 2 06/07/19 15:42 Gram Stain - Final Sputum Expectorated Sputum Culture - Final MRSA Normal Keisha 06/07/19 10:37 Gram Stain - Final Joint Fluid(Synovial) - Shoulder Right Body Fluid Culture - Final No Growth Day 4 Skin and Soft Tissue MRSA/MSSA (PCR - Final Mrsa Negative S.aureus Negative 06/07/19 10:37 Anaerobic Culture - Final Body Fluid - Shoulder Right No Growth Day 4 06/06/19 19:51 Aerobic Blood Culture - Final Blood Venous MRSA Anaerobic Blood Culture - Final MRSA Blood MRSA/MSSA (PCR) - Final Mrsa Positive S.aureus Positive 06/06/19 19:51 Aerobic Blood Culture - Final Blood Venous MRSA Anaerobic Blood Culture - Final MRSA 06/07/19 04:21 Legionella Urinary Antigen - Final Urine Negative Legionella Antigen 06/07/19 04:21 Streptococcus pneumoniae Ag Screen - Final Urine Negative S. pneumo Antigen Assessment: 1. MRSA bacteremia. WALKER with no signs of vegetation, initially high suspicion for endocarditis in the setting of IV drug use. Repeat blood cultures from 06/09 with no growth (only 2 bottles drawn). Afebrile and no leukocytosis. 2. Bilateral PNA with lung abscesses. Urine antigens negative for S. Pneumo and legionella. Sputum culture with MRSA. Afebrile and no leukocytosis. Reports some chest discomfort with deep breaths. 3. Hepatitis C. Has not received treatment in the past. HIV negative. Plan: Continue vancomycin, trough goal 15-20. Day 09/10. He should have weekly labs while on IV ABX: CBC, CMP, CRP, and vanco trough. If he chooses to leave AMA, he should be discharged on Bactrim DS 1 tablet PO BID to complete the course of ABX.
[2019-06-13] MEDS: Vancomycin(*) 1,250 MG in NS 0.9% 250 ML* 250 ML IV SCH ×4 (01:05→18:12)
[2019-06-13] MEDS: HYDROmorphone TAB* 4 MG PO PRN ×6 (01:12→23:03)
[2019-06-13 07:01] LABS: EGFR African American 153.7 (>60); Vancomycin Trough 16.6 mcg/mL
[2019-06-13] MEDS: Gabapentin CAP(*) 300 MG PO SCH ×3 (09:19→20:41)
[2019-06-13] MEDS: Acetaminophen TAB* 325 MG PO SCH ×3 (09:20→20:41)
[2019-06-13] MEDS: cloNIDine TAB* 0.1 MG PO SCH ×3 (09:20→20:41)
[2019-06-13] MEDS ORDERED: Vancomycin Trough Check NOTE FOLLOW UP ONE (10:00)
[2019-06-13] MEDS: NS 0.9% 1000 ML** 1,000 ML IV SCH (10:20)
[2019-06-13] MEDS: LORazepam TAB(*) 1 MG PO PRN ×2 (13:05→20:45)
[2019-06-13] MEDS: Ondansetron INJ* 2 MG/ML VIAL IV PRN (13:06)
--- NOTE | 2019-06-13 16:24 | PN ---
Subjective Date of Service: 06/13/19 Interval History: Mr. Humphreys is feeling okay today. He did not sleep well overnight because of the IV pump beeping frequently. Continues to have bilat lower chest pain, anterior and posterior. No SOB or cough. He is surprised that he will need 4 weeks of abx. No concerns from nursing. Family History: Unchanged from Admission Social History: Unchanged from Admission Past Medical History: Unchanged from Admission Objective Active Medications: Acetaminophen (Tylenol Tab*) 975 mg PO TID ALEX Clonidine HCl (Catapres Tab*) 0.1 mg PO TID ALEX Gabapentin (Neurontin Cap(*)) 600 mg PO TID ALEX Hydromorphone HCl (Dilaudid Inj1s*) 1 mg IV Q4H PRN PAIN - SEVERE Hydromorphone HCl (Dilaudid Tab*) 8 mg PO Q4H PRN PAIN - SEVERE Sodium Chloride (Ns 0.9% 1000 Ml) 1,000 mls @ 100 mls/hr IV PER RATE ALEX Vancomycin HCl 1,250 mg/ (Sodium Chloride) 250 mls @ 166.667 mls/hr IV 0030, 0630,1230,1830 ALEX Lorazepam (Ativan Tab(*)) 1 mg PO Q4H PRN ANXIETY Nicotine Polacrilex (Nicotine Gum*) 4 mg PO Q2H PRN CRAVING Ondansetron HCl (Zofran Inj*) 4 mg IV Q4H PRN NAUSEA/VOMITING Vital Signs - 8 hr 06/13/19 06/13/19 06/13/19 09:19 11:00 11:19 Temperature 98.7 F Pulse Rate 65 Respiratory 16 17 16 Rate Blood Pressure 126/61 (mmHg) O2 Sat by Pulse 96 Oximetry Oxygen Devices in Use Now: None Appearance: Middle-aged male lying in bed in NAD Ears/Nose/Mouth/Throat: Mucous Membranes Moist Neck: NL Appearance and Movements; NL JVP, Trachea Midline Respiratory: Symmetrical Chest Expansion and Respiratory Effort, Clear to Auscultation Cardiovascular: NL Sounds; No Murmurs; No JVD, RRR Abdominal: NL Sounds; No Tenderness; No Distention Neurological: Alert and Oriented x 3 Lines/Tubes/Other Access: Clean, Dry and Intact Peripheral IV Nutrition: Taking PO's Result Diagrams: 06/09/19 13:42 01/29/20 06:11 Assess/Plan/Problems-Billing Assessment: Mr. Humphreys is a 28 yo M with PMH of HCV, substance abuse; who presented with MRSA bacteremia noted on BC from [place], bilat LL pneumonia with abscesses, R shoulder pain. - Patient Problems (1) Bacteremia Code(s): R78.81 - BACTEREMIA Comment: - MRSA positive bacteremia - Repeat BC without growth - WALKER without vegetation - Continue vanco (day 10/10) (2) Bilateral pneumonia Code(s): J18.9 - PNEUMONIA, UNSPECIFIED ORGANISM Comment: - Bilat pneumonia with cavitary masses noted on imaging from [place] - Negative urine antigen for S. pneumo, Legionella - Sputum culture growing MRSA - WALKER negative for vegetation; still high suspicion for endocarditis - Appreciate ID consult - Continue vanco (day 10/10), Dilaudid (3) Jaw pain Code(s): R68.84 - JAW PAIN Comment: - Resolved (4) Right shoulder pain Code(s): M25.511 - PAIN IN RIGHT SHOULDER Comment: - Resolved (5) IV drug abuse Code(s): F19.10 - OTHER PSYCHOACTIVE SUBSTANCE ABUSE, UNCOMPLICATED Comment: - Last use 06/06 - SW involved; patient refuses inpatient rehab - Does not want Suboxone at this point, but is will to try closer to d/c - PICC line contraindicated due to IV use - Continue gabapentin, lorazepam, clonidine (6) HCV (hepatitis C virus) Comment: - Without previous treatment - Patient states that last time it was checked, his counts were low (7) DVT prophylaxis Code(s): Z29.9 - ENCOUNTER FOR PROPHYLACTIC MEASURES, UNSPECIFIED Comment: -SCDs (8) Full code status Code(s): Z78.9 - OTHER SPECIFIED HEALTH STATUS Comment: Status and Disposition: Inpatient. Anticipate d/c to swing status when prior authorization obtained. Attending: Mattie Guerrero
[2019-06-13] MEDS: HYDROmorphone INJ1* 1 MG/ML SYRINGE IV PRN (18:11)
[2019-06-14] MEDS: Vancomycin(*) 1,250 MG in NS 0.9% 250 ML* 250 ML IV SCH ×4 (01:37→18:05)
[2019-06-14] MEDS: HYDROmorphone TAB* 4 MG PO PRN ×5 (04:32→23:06)
[2019-06-14] MEDS: Gabapentin CAP(*) 300 MG PO SCH ×3 (08:40→20:31)
[2019-06-14] MEDS: Acetaminophen TAB* 325 MG PO SCH ×3 (08:41→20:33)
[2019-06-14] MEDS: cloNIDine TAB* 0.1 MG PO SCH ×3 (08:41→20:33)
[2019-06-14] MEDS: LORazepam TAB(*) 1 MG PO PRN ×2 (08:44→23:05)
--- NOTE | 2019-06-14 13:21 | PN ---
Subjective Date of Service: 06/14/19 Interval History: Mr. Humphreys is feeling a little better today. Pain is slightly improved and he is not needing to use IV Dilaudid anymore, though he does not feel as though he can cut back on the PO at this point. He is willing to start to cut back the dose within the next few days. Denies SOB, cough. No concerns from nursing. Family History: Unchanged from Admission Social History: Unchanged from Admission Past Medical History: Unchanged from Admission Objective Active Medications: Acetaminophen (Tylenol Tab*) 975 mg PO TID ALEX Clonidine HCl (Catapres Tab*) 0.1 mg PO TID ALEX Gabapentin (Neurontin Cap(*)) 600 mg PO TID ALEX Heparin Sodium (Porcine) (Heparin Flush Picc/Ml/Cvc(*)) 1 ml FLUSH 0600,1800 ALEX; Protocol Hydromorphone HCl (Dilaudid Tab*) 8 mg PO Q4H PRN PAIN - SEVERE Hydromorphone HCl (Dilaudid Inj1s*) 1 mg IV Q8H PRN PAIN - SEVERE Vancomycin HCl 1,250 mg/ (Sodium Chloride) 250 mls @ 166.667 mls/hr IV 0030, 0630,1230,1830 ALEX Lorazepam (Ativan Tab(*)) 1 mg PO Q4H PRN ANXIETY Nicotine Polacrilex (Nicotine Gum*) 4 mg PO Q2H PRN CRAVING Ondansetron HCl (Zofran Inj*) 4 mg IV Q4H PRN NAUSEA/VOMITING Vital Signs - 8 hr 06/14/19 06/14/19 06/14/19 07:25 08:40 08:44 Temperature 98.8 F Pulse Rate 69 Respiratory 17 16 16 Rate Blood Pressure 141/75 (mmHg) O2 Sat by Pulse 96 Oximetry 06/14/19 06/14/19 06/14/19 09:00 09:50 10:38 Temperature Pulse Rate Respiratory 16 16 16 Rate Blood Pressure (mmHg) O2 Sat by Pulse 96 Oximetry 06/14/19 06/14/19 10:57 11:32 Temperature 97.9 F Pulse Rate 61 Respiratory 17 16 Rate Blood Pressure 120/66 (mmHg) O2 Sat by Pulse 94 Oximetry Oxygen Devices in Use Now: None Appearance: Middle-aged male sitting in bed in NAD Ears/Nose/Mouth/Throat: Mucous Membranes Moist Neck: NL Appearance and Movements; NL JVP, Trachea Midline Respiratory: Symmetrical Chest Expansion and Respiratory Effort, Clear to Auscultation Cardiovascular: NL Sounds; No Murmurs; No JVD, RRR Abdominal: NL Sounds; No Tenderness; No Distention Neurological: Alert and Oriented x 3 Lines/Tubes/Other Access: Clean, Dry and Intact Peripheral IV Nutrition: Taking PO's Result Diagrams: 06/09/19 13:42 06/13/19 06:11 Assess/Plan/Problems-Billing Assessment: Mr. Humphreys is a 28 yo M with PMH of HCV, substance abuse; who presented with MRSA bacteremia noted on BC from [place], bilat LL pneumonia with abscesses, R shoulder pain. - Patient Problems (1) Bacteremia Code(s): R78.81 - BACTEREMIA Comment: - MRSA positive bacteremia - Repeat BC without growth - WALKER without vegetation - Continue vanco (day 11/10) (2) Bilateral pneumonia Code(s): J18.9 - PNEUMONIA, UNSPECIFIED ORGANISM Comment: - Bilat pneumonia with cavitary masses noted on imaging from [place] - Negative urine antigen for S. pneumo, Legionella - Sputum culture growing MRSA - WALKER negative for vegetation; still high suspicion for endocarditis - Appreciate ID consult - Continue vanco (day 11/10), Dilaudid (3) Jaw pain Code(s): R68.84 - JAW PAIN Comment: - Resolved (4) Right shoulder pain Code(s): M25.511 - PAIN IN RIGHT SHOULDER Comment: - Resolved (5) IV drug abuse Code(s): F19.10 - OTHER PSYCHOACTIVE SUBSTANCE ABUSE, UNCOMPLICATED Comment: - Last use 06/06 - SW involved; patient refuses inpatient rehab - Does not want Suboxone at this point, but is will to try closer to d/c - PICC line contraindicated due to IV use - Continue gabapentin, lorazepam, clonidine (6) HCV (hepatitis C virus) Comment: - Without previous treatment - Patient states that last time it was checked, viral count was low (7) DVT prophylaxis Code(s): Z29.9 - ENCOUNTER FOR PROPHYLACTIC MEASURES, UNSPECIFIED Comment: -SCDs (8) Full code status Code(s): Z78.9 - OTHER SPECIFIED HEALTH STATUS Comment: Status and Disposition: Inpatient. Anticipate d/c to swing status when prior authorization obtained. Attending: Mattie Guerrero
--- NOTE | 2019-06-14 14:11 | PN ---
Progress Note - Progress Note Date of Service: 06/14/19 SOAP: Subjective: cc: lung abscess HPI: 28 year old man with MRSA lung abscess on vancomycin, tolerating it well. Hasn't had an issue with peripheral IV and infusions. No abd pain, fever, rash , or diarrhea. Chest pain and cough improving. Objective: Vital Signs Temp 36.6 C 06/14/19 10:57 Pulse 61 06/14/19 10:57 Resp 16 06/14/19 14:02 BP 120/66 06/14/19 10:57 Pulse Ox 94 06/14/19 10:57 Intake & Output 06/13/19 06/14/19 06/14/19 18:59 06:59 18:59 Intake Total 2410 580 1840 Output Total 0 Balance 2410 580 1840 Intake: IV Fluids 1250 60 ABX - VANCOMYCIN 250 NS (0.9%) 1000 60 IVPB 520 ABX - VANCOMYCIN 520 Oral 1160 0 1840 Output: Urine 0 Other: Estimated Void Medium # Bowel Movements 0 Estimated Stool Amount Medium # Voids 5 Gen:Awake, no distress HEENT: no thrush Heart:RRR no murmur Lungs:CTA BL Abd:+BS NT ND soft Skin: no rash MSK: no spine tenderness or joint synovitis Assessment: 1. MRSA lung abscess 2. MRSA bacteremia, cleared; WALKER negative 3. Right shoulder pain resolved, dry tap 4. 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 vancomycin goal tr 10-15, day 814 then likely transition to PO antibiotics, will check CXR; weekly cbc, cmp, crp. Dsicussed with L Vic [employer]
[2019-06-15] MEDS: Vancomycin(*) 1,250 MG in NS 0.9% 250 ML* 250 ML IV SCH ×4 (00:25→17:52)
[2019-06-15] MEDS: HYDROmorphone INJ1* 1 MG/ML SYRINGE IV PRN (02:44)
[2019-06-15] MEDS: HYDROmorphone TAB* 4 MG PO PRN ×5 (05:31→22:23)
[2019-06-15] MEDS: Acetaminophen TAB* 325 MG PO SCH ×3 (09:39→22:22)
[2019-06-15] MEDS: cloNIDine TAB* 0.1 MG PO SCH ×3 (09:41→22:23)
[2019-06-15] MEDS: Gabapentin CAP(*) 300 MG PO SCH ×3 (09:41→22:23)
--- NOTE | 2019-06-15 09:52 | PN ---
Progress Note - Progress Note Date of Service: 06/15/19 SOAP: Subjective: CC: MRSA bacteremia and lung abscess HPI: Mr. Humphreys is a 28 yo male with PMH significant for IV drug use, and hepatitis C; who was transferred from [facility] for bacteremia, PNA, and lung abscess. Denies fever, chills, nausea, vomiting, diarrhea, joint pain, back pain, or ABD pain. He is moving all extremities. Reports 2 loose stools daily. He states that he is having discomfort in the left chest, worse with deep breath with some shortness of breath. He reports an abscess to his buttock, states that he has not been using warm compresses. Objective: Vital Signs 06/15/19 06/15/19 06/15/19 03:58 05:31 09:41 Temperature 99.3 F Pulse Rate 70 Respiratory 16 20 18 Rate Blood Pressure 116/56 (mmHg) O2 Sat by Pulse 92 Oximetry Physical Exam: General: NAD, laying in bed Neurological: Alert and Oriented HEENT: Moist MM Cardiovascular: Heart rate regular Respiratory: Lung sounds clear bilateral, diminished sounds in the left lower lobe Abdominal: Bowel sounds present; ABD soft, non tender and non distended MSK: No tenderness with palpation of the neck, back or spine. No edematous joints. No erythema to joints. Moves all extremities Skin: No rash Laboratory Last Values WBC 7.1 10^3/uL (3.5-10.8) 06/09/19 13:42 RBC 3.96 10^6 /uL (4.18-5.48) L 06/09/19 13:42 Hgb 11.8 g/dL (14.0-18.0) L 06/09/19 13:42 Hct 33 % (42-52) L 06/09/19 13:42 MCV 83 fL (80-94) 06/09/19 13:42 MCH 30 pg (27-31) 06/09/19 13:42 MCHC 36 g/dL (31-36) 06/09/19 13:42 RDW 13 % (10-15) 06/09/19 13:42 Plt Count 283 10^3/uL (150-450) 06/09/19 13:42 MPV 7.0 fL (7.4-10.4) L 06/09/19 13:42 Neut % (Auto) 74.7 % 06/09/19 13:42 Lymph % (Auto) 16.0 % 06/09/19 13:42 [place] % (Auto) 6.8 % 06/09/19 13:42 Eos % (Auto) 1.5 % 06/09/19 13:42 Baso % (Auto) 1.0 % 06/09/19 13:42 Absolute Neuts (auto) 5.3 10^3/ul (1.5-7.7) 06/09/19 13:42 Absolute Lymphs (auto) 1.1 10^3/ul (1.0-4.8) 06/09/19 13:42 Absolute Monos (auto) 0.5 10^3/ul (0-0.8) 06/09/19 13:42 Absolute Eos (auto) 0.1 10^3/ul (0-0.6) 06/09/19 13:42 Absolute Basos (auto) 0.1 10^3/ul (0-0.2) 06/09/19 13:42 Absolute Nucleated RBC 0.0 10^3/ul 06/09/19 13:42 Nucleated RBC % 0.0 06/09/19 13:42 Sodium 140 mmol/L (135-145) 06/09/19 13:42 Potassium 3.7 mmol/L (3.5-5.0) 06/09/19 13:42 Chloride 106 mmol/L (101-111) 06/09/19 13:42 Carbon Dioxide 26 mmol/L (22-32) 06/09/19 13:42 Anion Gap 8 mmol/L (2-11) 06/09/19 13:42 BUN 7 mg/dL (6-24) 06/13/19 06:11 Creatinine 0.73 mg/dL (0.67-1.17) 06/13/19 06:11 Est GFR ( Amer) 153.7 (>60) 06/13/19 06:11 Est GFR (Non-Af Amer) 127.0 (>60) 06/13/19 06:11 BUN/Creatinine Ratio 8.7 (8-20) 06/09/19 13:42 Glucose 116 mg/dL (70-100) H 06/09/19 13:42 Lactic Acid 0.6 mmol/L (0.5-2.0) 06/06/19 19:51 Calcium 9.0 mg/dL (8.6-10.3) 06/09/19 13:42 Total Bilirubin 0.50 mg/dL (0.2-1.0) 06/06/19 19:51 AST 21 U/L (13-39) 06/06/19 19:51 ALT 34 U/L (7-52) 06/06/19 19:51 Alkaline Phosphatase 56 U/L (34-104) 06/06/19 19:51 Troponin I 0.03 ng/mL (<0.03) H* 06/07/19 00:20 C-Reactive Protein 148.38 mg/L (<8.01) H 06/08/19 16:15 Total Protein 7.8 g/dL (6.4-8.9) 06/06/19 19:51 Albumin 4.0 g/dL (3.2-5.2) 06/06/19 19:51 Globulin 3.8 g/dL (2-4) 06/06/19 19:51 Albumin/Globulin Ratio 1.1 (1-3) 06/06/19 19:51 Fluid Source Synovial fluid 06/07/19 10:37 Fluid Volume 0.5 mL 06/07/19 10:37 Fluid Color [place] 06/07/19 10:37 Fluid Appearance Cloudy 06/07/19 10:37 Fluid WBC 24 /mcL (0-705641) 06/07/19 10:37 Fluid RBC 32196 /mcL 06/07/19 10:37 Fluid Tot Cell Count 50 06/07/19 10:37 Fluid Neutrophils 54 % 06/07/19 10:37 Fluid Lymphocytes 18 % 06/07/19 10:37 Fluid Monocytes 28 % 06/07/19 10:37 Fluid Cell Count Rvw By 06/07/19 10:37 Fluid Comment 06/07/19 10:37 Vancomycin Trough 16.6 mcg/mL 06/13/19 06:11 Urine Opiates Screen Presumptive positive (None Detect) A 06/06/19 04:21 Ur Barbiturates Screen None detected (None Detect) 06/06/19 04:21 Ur Phencyclidine Scrn None detected (None Detect) 06/06/19 04:21 Ur Amphetamines Screen None detected (None Detect) 06/06/19 04:21 U Benzodiazepines Scrn None detected (None Detect) 06/06/19 04:21 Urine Cocaine Screen Presumptive positive (None Detect) A 06/06/19 04:21 U Cannabinoids Screen None detected (None Detect) 06/06/19 04:21 HIV 1&2 Ab/P24 Ag 4thGn Nonreactive (Nonreactive) 06/06/19 19:51 Influenza A (Rapid) Negative (Negative) 06/07/19 00:38 Influenza B (Rapid) Negative (Negative) 06/07/19 00:38 Microbiology 06/09/19 13:42 Aerobic Blood Culture - Final No Source Provided No Growth Day 5 Anaerobic Blood Culture - Final No Growth Day 5 06/08/19 16:15 Aerobic Blood Culture - Final No Source Provided MRSA Anaerobic Blood Culture - Final No Growth Day 5 Blood MRSA/MSSA (PCR) - Final Mrsa Positive S.aureus Positive 06/08/19 16:15 Aerobic Blood Culture - Final No Source Provided No Growth Day 5 Anaerobic Blood Culture - Final Staphylococcus Epidermidis Blood MRSA/MSSA (PCR) - Final Mrsa Negative S.aureus Negative 06/07/19 15:42 Gram Stain - Final Sputum Expectorated Sputum Culture - Final MRSA Normal Keisha 06/07/19 10:37 Gram Stain - Final Joint Fluid(Synovial) - Shoulder Right Body Fluid Culture - Final No Growth Day 4 Skin and Soft Tissue MRSA/MSSA (PCR - Final Mrsa Negative S.aureus Negative 06/07/19 10:37 Anaerobic Culture - Final Body Fluid - Shoulder Right No Growth Day 4 06/06/19 19:51 Aerobic Blood Culture - Final Blood Venous MRSA Anaerobic Blood Culture - Final MRSA Blood MRSA/MSSA (PCR) - Final Mrsa Positive S.aureus Positive 06/06/19 19:51 Aerobic Blood Culture - Final Blood Venous MRSA Anaerobic Blood Culture - Final MRSA 06/07/19 04:21 Legionella Urinary Antigen - Final Urine Negative Legionella Antigen 06/07/19 04:21 Streptococcus pneumoniae Ag Screen - Final Urine Negative S. pneumo Antigen Assessment: 1. MRSA bacteremia. WALKER with no signs of vegetation, initially high suspicion for endocarditis in the setting of IV drug use. Repeat blood cultures from 06/09 with no growth (only 2 bottles drawn). 2. Bilateral PNA with lung abscesses. Urine antigens negative for S. Pneumo and legionella. Sputum culture with MRSA. Afebrile and no leukocytosis (not checked in a few days). Reports some chest discomfort with deep breaths, worse when laying back and shortness of breath. Chest xray from yesterday with progression of left pleural effusion and left basilar atelectasis vs consolidation. 3. Buttock abscess. Declined assessment of this. Reports that this is the second abscess that he has had. 4. Hepatitis C. Has not received treatment in the past. HIV negative. Plan: Will get a chest CT to evaluate for a loculated pleural effusion. Continue vancomycin, trough goal 15-20. Day 9/14 of IV and then will plan to transition to oral ABX to complete the course (this plan may change if he is found to have a loculated pleural effusion). He should have weekly labs while on IV ABX: CBC, CMP, CRP, and vanco trough. Recommend applying warm compresses to the area of abscess a few times daily. Discussed with Alexandra Ho NP
--- NOTE | 2019-06-15 10:45 | PN ---
Subjective Date of Service: 06/15/19 Interval History: Mr. Humphreys is not feeling well today. He is having significant lower left chest wall pain. Worse with laying flat and deep breathing. He is having occasional mild SOB. Reports an abscess to buttocks. He feels he has gotten through the worst of his withdrawal. No concerns from nursing. Family History: Unchanged from Admission Social History: Unchanged from Admission Past Medical History: Unchanged from Admission Objective Active Medications: Acetaminophen (Tylenol Tab*) 975 mg PO TID ALEX Clonidine HCl (Catapres Tab*) 0.1 mg PO TID ALEX Gabapentin (Neurontin Cap(*)) 600 mg PO TID ALEX Heparin Sodium (Porcine) (Heparin Flush Picc/Ml/Cvc(*)) 1 ml FLUSH 0600,1800 ALEX; Protocol Hydromorphone HCl (Dilaudid Tab*) 8 mg PO Q4H PRN PAIN - SEVERE Hydromorphone HCl (Dilaudid Inj1s*) 1 mg IV Q8H PRN PAIN - SEVERE Vancomycin HCl 1,250 mg/ (Sodium Chloride) 250 mls @ 166.667 mls/hr IV 0030, 0630,1230,1830 ALEX Lorazepam (Ativan Tab(*)) 1 mg PO Q4H PRN ANXIETY Nicotine Polacrilex (Nicotine Gum*) 4 mg PO Q2H PRN CRAVING Ondansetron HCl (Zofran Inj*) 4 mg IV Q4H PRN NAUSEA/VOMITING Vital Signs - 8 hr 06/15/19 06/15/19 06/15/19 02:44 02:50 03:44 Temperature Pulse Rate Respiratory 20 20 20 Rate Blood Pressure (mmHg) O2 Sat by Pulse Oximetry 06/15/19 06/15/19 06/15/19 03:58 05:31 07:28 Temperature 99.3 F 101.1 F Pulse Rate 70 68 Respiratory 16 20 18 Rate Blood Pressure 116/56 118/55 (mmHg) O2 Sat by Pulse 92 95 Oximetry 06/15/19 06/15/19 06/15/19 08:00 09:41 09:42 Temperature Pulse Rate Respiratory 18 18 18 Rate Blood Pressure (mmHg) O2 Sat by Pulse 95 Oximetry Oxygen Devices in Use Now: None Appearance: Middle-aged male sitting in bed in NAD, hold lateral left ribs Ears/Nose/Mouth/Throat: Mucous Membranes Moist Neck: NL Appearance and Movements; NL JVP, Trachea Midline Respiratory: Symmetrical Chest Expansion and Respiratory Effort, - - Severely diminished to LLL, otherwise clear Cardiovascular: NL Sounds; No Murmurs; No JVD, RRR Abdominal: NL Sounds; No Tenderness; No Distention Neurological: Alert and Oriented x 3 Lines/Tubes/Other Access: Clean, Dry and Intact Peripheral IV Nutrition: Taking PO's Result Diagrams: 06/09/19 13:42 06/13/19 06:11 Assess/Plan/Problems-Billing Assessment: Mr. Humphreys is a 28 yo M with PMH of HCV, substance abuse; who presented with MRSA bacteremia noted on BC from [place], bilat LL pneumonia with abscesses, R shoulder pain. - Patient Problems (1) Bacteremia Code(s): R78.81 - BACTEREMIA Comment: - MRSA positive bacteremia - Repeat BC without growth - WALKER without vegetation - Continue vanco (day 01/27) (2) Bilateral pneumonia Code(s): J18.9 - PNEUMONIA, UNSPECIFIED ORGANISM Comment: - Bilat pneumonia with cavitary masses noted on imaging from [place] - Negative urine antigen for S. pneumo, Legionella - Sputum culture growing MRSA - WALKER negative for vegetation; still high suspicion for endocarditis - Repeat CXR yesterday showing persistent pleural effusion; will check CT today to r/o loculation - Appreciate ID consult - Continue vanco (day ), Dilaudid (3) Jaw pain Code(s): R68.84 - JAW PAIN Comment: - Resolved (4) Right shoulder pain Code(s): M25.511 - PAIN IN RIGHT SHOULDER Comment: - Resolved (5) IV drug abuse Code(s): F19.10 - OTHER PSYCHOACTIVE SUBSTANCE ABUSE, UNCOMPLICATED Comment: - Last use 06/06 - SW involved; patient refuses inpatient rehab - Does not want Suboxone at this point, but is will to try closer to d/c - PICC line contraindicated due to IV use - Continue gabapentin, lorazepam, clonidine (6) HCV (hepatitis C virus) Comment: - Without previous treatment - Patient states that last time it was checked, viral count was low (7) DVT prophylaxis Code(s): Z29.9 - ENCOUNTER FOR PROPHYLACTIC MEASURES, UNSPECIFIED Comment: -SCDs (8) Full code status Code(s): Z78.9 - OTHER SPECIFIED HEALTH STATUS Comment: Status and Disposition: Inpatient. Anticipate d/c home when medically stable and abx course is finished. Attending: Mattie Guerrero
[2019-06-16] MEDS: Vancomycin(*) 1,250 MG in NS 0.9% 250 ML* 250 ML IV SCH ×4 (02:05→18:20)
[2019-06-16] MEDS: HYDROmorphone TAB* 4 MG PO PRN ×3 (02:10→11:08)
[2019-06-16] MEDS: cloNIDine TAB* 0.1 MG PO SCH ×3 (09:06→21:02)
[2019-06-16] MEDS: Acetaminophen TAB* 325 MG PO SCH ×3 (09:06→21:02)
[2019-06-16] MEDS: Gabapentin CAP(*) 300 MG PO SCH ×3 (09:06→21:02)
[2019-06-16] MEDS: LORazepam TAB(*) 1 MG PO PRN (09:09)
--- NOTE | 2019-06-16 14:28 | PN ---
Subjective Date of Service: 06/16/19 Interval History: Mr. Humphreys is feeling about the same today. Still having significant left lateral rib pain, worse with deep breathing and laying flat. No significant SOB. Diarrhea improving. No concerns from nursing. Family History: Unchanged from Admission Social History: Unchanged from Admission Past Medical History: Unchanged from Admission Objective Active Medications: Acetaminophen (Tylenol Tab*) 975 mg PO TID ALEX Clonidine HCl (Catapres Tab*) 0.1 mg PO TID ALEX Gabapentin (Neurontin Cap(*)) 600 mg PO TID ALEX Heparin Sodium (Porcine) (Heparin Flush Picc/Ml/Cvc(*)) 1 ml FLUSH 0600,1800 ALEX; Protocol Hydromorphone HCl (Dilaudid Tab*) 8 mg PO Q4H PRN PAIN - SEVERE Vancomycin HCl 1,250 mg/ (Sodium Chloride) 250 mls @ 166.667 mls/hr IV 0030, 0630,1230,1830 ALEX Lorazepam (Ativan Tab(*)) 0.5 mg PO Q4H PRN ANXIETY Nicotine Polacrilex (Nicotine Gum*) 4 mg PO Q2H PRN CRAVING Ondansetron HCl (Zofran Inj*) 4 mg IV Q4H PRN NAUSEA/VOMITING Vital Signs - 8 hr 06/16/19 06/16/19 06/16/19 06:25 07:41 08:00 Temperature 98.6 F Pulse Rate 73 Respiratory 17 18 18 Rate Blood Pressure 128/65 (mmHg) O2 Sat by Pulse 95 95 Oximetry 06/16/19 06/16/19 06/16/19 11:08 11:10 11:33 Temperature 97.4 F Pulse Rate 61 Respiratory 18 18 18 Rate Blood Pressure 116/62 (mmHg) O2 Sat by Pulse 96 Oximetry Oxygen Devices in Use Now: None Appearance: Middle-aged male sitting in bed in NAD Ears/Nose/Mouth/Throat: Mucous Membranes Moist Neck: NL Appearance and Movements; NL JVP, Trachea Midline Respiratory: Symmetrical Chest Expansion and Respiratory Effort, Clear to Auscultation Cardiovascular: NL Sounds; No Murmurs; No JVD, RRR Abdominal: NL Sounds; No Tenderness; No Distention Neurological: Alert and Oriented x 3 Lines/Tubes/Other Access: Clean, Dry and Intact Peripheral IV Nutrition: Taking PO's Result Diagrams: 06/09/19 13:42 06/13/19 06:11 Assess/Plan/Problems-Billing Assessment: Mr. Humphreys is a 28 yo M with PMH of HCV, substance abuse; who presented with MRSA bacteremia noted on BC from [place], bilat LL pneumonia with abscesses, R shoulder pain. - Patient Problems (1) Bacteremia Code(s): R78.81 - BACTEREMIA Comment: - MRSA positive bacteremia - Repeat BC without growth - WALKER without vegetation - Continue vanco (day 02/26) (2) Bilateral pneumonia Code(s): J18.9 - PNEUMONIA, UNSPECIFIED ORGANISM Comment: - Bilat pneumonia with cavitary masses noted on imaging from [place] - Negative urine antigen for S. pneumo, Legionella - Sputum culture growing MRSA - WALKER negative for vegetation; still high suspicion for endocarditis - CT today showing large left pleural effusion, not loculated - Appreciate ID consult - Possible that effusion will need to be tapped - Continue vanco (day 02/26), Dilaudid (3) Jaw pain Code(s): R68.84 - JAW PAIN Comment: - Resolved (4) Right shoulder pain Code(s): M25.511 - PAIN IN RIGHT SHOULDER Comment: - Resolved (5) IV drug abuse Code(s): F19.10 - OTHER PSYCHOACTIVE SUBSTANCE ABUSE, UNCOMPLICATED Comment: - Last use 06/06 - SW involved; patient refuses inpatient rehab - Does not want Suboxone at this point, but is will to try closer to d/c - PICC line contraindicated due to IV use - Continue gabapentin, lorazepam, clonidine (6) HCV (hepatitis C virus) Comment: - Without previous treatment - Patient states that last time it was checked, viral count was low (7) DVT prophylaxis Code(s): Z29.9 - ENCOUNTER FOR PROPHYLACTIC MEASURES, UNSPECIFIED Comment: -SCDs (8) Full code status Code(s): Z78.9 - OTHER SPECIFIED HEALTH STATUS Comment: Status and Disposition: Inpatient. Anticipate d/c home when medically stable and abx course is finished. Attending: Zoraida Arthur
[2019-06-16] MEDS: HYDROmorphone TAB* 2 MG PO PRN ×2 (14:58→19:29)
[2019-06-17] MEDS: HYDROmorphone TAB* 2 MG PO PRN ×6 (00:33→23:34)
[2019-06-17] MEDS: Vancomycin(*) 1,250 MG in NS 0.9% 250 ML* 250 ML IV SCH ×4 (00:33→18:04)
[2019-06-17] MEDS: LORazepam TAB(*) 0.5 MG PO PRN (00:34)
--- NOTE | 2019-06-17 10:06 | PN ---
Subjective Date of Service: 06/17/19 Interval History: Mr. Humphreys is feeling okay today. Left lateral rib pain is unchanged. He is still having pain with 6mg of Diluadid, but he agrees that it would not be nelson to increase the dose. He is still willing to start Suboxone prior to d/c and understands that he will need to be off narcotics in order to start that. Mild SOB. No concerns from nursing. Family History: Unchanged from Admission Social History: Unchanged from Admission Past Medical History: Unchanged from Admission Objective Active Medications: Acetaminophen (Tylenol Tab*) 975 mg PO TID ALEX Clonidine HCl (Catapres Tab*) 0.1 mg PO TID ALEX Gabapentin (Neurontin Cap(*)) 600 mg PO TID ALEX Heparin Sodium (Porcine) (Heparin Flush Picc/Ml/Cvc(*)) 1 ml FLUSH 0600,1800 ALEX; Protocol Hydromorphone HCl (Dilaudid Tab*) 6 mg PO Q4H PRN PAIN - SEVERE Vancomycin HCl 1,250 mg/ (Sodium Chloride) 250 mls @ 166.667 mls/hr IV 0030, 0630,1230,1830 ALEX Lorazepam (Ativan Tab(*)) 0.5 mg PO Q4H PRN ANXIETY Nicotine Polacrilex (Nicotine Gum*) 4 mg PO Q2H PRN CRAVING Ondansetron HCl (Zofran Inj*) 4 mg IV Q4H PRN NAUSEA/VOMITING Vital Signs - 8 hr 06/17/19 06/17/19 06/17/19 03:30 03:45 05:35 Temperature 98.6 F Pulse Rate 79 Respiratory 20 27 15 Rate Blood Pressure 114/56 (mmHg) O2 Sat by Pulse 98 Oximetry Oxygen Devices in Use Now: None Appearance: Young adult male lying in bed in NAD Ears/Nose/Mouth/Throat: Mucous Membranes Moist Neck: NL Appearance and Movements; NL JVP, Trachea Midline Respiratory: Symmetrical Chest Expansion and Respiratory Effort, - - Diminished LLL, otherwise clear Cardiovascular: NL Sounds; No Murmurs; No JVD, RRR Neurological: Alert and Oriented x 3 Lines/Tubes/Other Access: Clean, Dry and Intact Peripheral IV Nutrition: Taking PO's Result Diagrams: 06/09/19 13:42 06/13/19 06:11 Assess/Plan/Problems-Billing Assessment: Mr. Humphreys is a 28 yo M with PMH of HCV, substance abuse; who presented with MRSA bacteremia noted on BC from [place], bilat LL pneumonia with abscesses, R shoulder pain. - Patient Problems (1) Bacteremia Code(s): R78.81 - BACTEREMIA Comment: - MRSA positive bacteremia - Repeat BC without growth - WALKER without vegetation - Continue vanco (day 03/29); may need longer course of abx pending findings from pleural fluid (2) Bilateral pneumonia Code(s): J18.9 - PNEUMONIA, UNSPECIFIED ORGANISM Comment: - Bilat pneumonia with cavitary masses noted on imaging from [place] - Negative urine antigen for S. pneumo, Legionella - Sputum culture growing MRSA - WALKER negative for vegetation; still high suspicion for endocarditis - CT showing large left pleural effusion, not loculated - Appreciate ID consult - Will need thoracentesis, likely tomorrow - Continue vanco (day 03/29), Dilaudid (3) Jaw pain Code(s): R68.84 - JAW PAIN Comment: - Resolved (4) Right shoulder pain Code(s): M25.511 - PAIN IN RIGHT SHOULDER Comment: - Resolved (5) IV drug abuse Code(s): F19.10 - OTHER PSYCHOACTIVE SUBSTANCE ABUSE, UNCOMPLICATED Comment: - Last used 06/06 - SW involved; patient refuses inpatient rehab - Willing to start Suboxone prior to d/c - Continue gabapentin, lorazepam, clonidine (6) HCV (hepatitis C virus) Comment: - Without previous treatment - Patient states that last time it was checked, viral count was low (7) DVT prophylaxis Code(s): Z29.9 - ENCOUNTER FOR PROPHYLACTIC MEASURES, UNSPECIFIED Comment: -SCDs (8) Full code status Code(s): Z78.9 - OTHER SPECIFIED HEALTH STATUS Comment: Status and Disposition: Inpatient. Anticipate d/c home when medically stable and abx course is finished. Attending: Zoraida Arthur
[2019-06-17] MEDS: Gabapentin CAP(*) 300 MG PO SCH ×3 (10:20→20:30)
[2019-06-17] MEDS: Acetaminophen TAB* 325 MG PO SCH ×3 (10:21→20:30)
[2019-06-17] MEDS: cloNIDine TAB* 0.1 MG PO SCH ×3 (10:22→20:30)
[2019-06-17 10:40] LABS: ABS Basophils 0.1 10^3/ul (0-0.2); ABS Eosinophils 0.2 10^3/ul (0-0.6); ABS Lymphocytes 1.2 10^3/ul (1.0-4.8); ABS Monocytes 0.5 10^3/ul (0-0.8); ABS Neutrophils 6.5 10^3/ul (1.5-7.7); Eosinophil % 2.4 %; Hematocrit 34 % (42-52); Hemoglobin 11.9 g/dL (14.0-18.0); Lymphocyte % 13.6 %; Mean Corpuscular HGB Conc 35 g/dL (31-36); Mean Corpuscular Hemoglobin 29 pg (27-31); Mean Corpuscular Volume 83 fL (80-94); Mean Platelet Volume 6.8 fL (7.4-10.4); Platelet Count 396 10^3/uL (150-450); Red Blood Count 4.04 10^6 /uL (4.18-5.48); Red Cell Distribution Width 13 % (10-15); White Blood Count 8.5 10^3/uL (3.5-10.8)
[2019-06-17 10:45] LABS: INR 1.3 (0.82-1.09)
[2019-06-17 11:00] LABS: Albumin 3.6 g/dL (3.2-5.2); Albumin/Globulin Ratio 0.8 (1-3); BUN/Creatinine Ratio 18.8 (8-20); C Reactive Protein 82.52 mg/L (<8.01); Calcium 9.5 mg/dL (8.6-10.3); EGFR African American 178.9 (>60); EGFR Non-African American 147.9 (>60); Globulin 4.6 g/dL (2-4); Potassium 4.2 mmol/L (3.5-5.0); Total Bilirubin 0.3 mg/dL (0.2-1.0); Total Protein 8.2 g/dL (6.4-8.9)
[2019-06-18] MEDS: Vancomycin(*) 1,250 MG in NS 0.9% 250 ML* 250 ML IV SCH ×4 (00:31→22:36)
[2019-06-18] MEDS: LORazepam TAB(*) 0.5 MG PO PRN ×2 (00:37→22:36)
[2019-06-18] MEDS: HYDROmorphone TAB* 2 MG PO PRN ×5 (03:24→19:53)
[2019-06-18] MEDS: Acetaminophen TAB* 325 MG PO SCH ×3 (09:05→21:25)
[2019-06-18] MEDS: Gabapentin CAP(*) 300 MG PO SCH ×3 (09:05→21:25)
[2019-06-18] MEDS: cloNIDine TAB* 0.1 MG PO SCH ×3 (09:06→21:25)
--- NOTE | 2019-06-18 09:17 | CONS ---
PULMONARY CONSULTATION REPORT: DATE OF CONSULTATION: 06/18/19 CONSULTATION REQUESTED BY: Tanya Ho NP REASON FOR CONSULTATION: Evaluation of pleural effusion. HISTORY OF PRESENT ILLNESS: The patient is a 28-year-old with history of hep C , multisubstance abuse, who presents with shortness of breath, chest pain, fevers, and chills. He was in [facility] on 06/05/19 due to chest pain, was found to have pneumonia and multiple areas of infectious pockets in bilateral lungs. His blood cultures were positive for gram-positive cocci in both bottles. The patient had CTA done and that showed bilateral lower lobe pneumonia with cavitary masses in the left upper lobe, middle lobe and hepatosplenomegaly. The patient left AMA, returned back again to [facility] with same complaints. The patient was initiated on antibiotics for bacteremia, pneumonia , and lung abscess. Echo did not reveal any vegetation. Repeat blood cultures have been negative. Sputum cultures showed MRSA. He also noted to have abscesses in the buttocks. Pulmonary consultation was requested for evaluation of pleural effusion. The patient was seen and examined at bedside. The patient reports having mild shortness of breath. The patient denies any chest pain. The patient reports mild discomfort in the buttock area. The patient denies fever or chills. He is hemodynamically stable. The patient denies any urinary complaints. He denies rash. PAST MEDICAL HISTORY: Hep C. PAST SURGICAL HISTORY: None. MEDICATIONS: At home, not on any medications. ALLERGIES: No known drug allergies. FAMILY HISTORY: The patient reports no health issues in the family. SOCIAL HISTORY: He smokes about half a pack per day. No alcohol or drug abuse. He uses heroin 1 to 2 times daily and cocaine several times a month. REVIEW OF SYSTEMS: All 14 systems reviewed and as per HPI. PHYSICAL EXAM: The patient in bed, in no apparent distress. Vital Signs: Temperature 98.4, pulse 63 beats per minute, respiratory rate 16 per minute, O2 sat 96% on room air, blood pressure 108/70. HEENT: Pupils equal, reactive to light. Mucous membranes moist. Lungs: Diminished air entry bilaterally, more on the left side. Cardiovascular: S1, S2 present, regular. Abdomen: Soft, nontender, nondistended. Bowel sounds present. Extremities: Normal range of motion. Skin: No rashes or bruises. DIAGNOSTIC STUDIES/LAB DATA: WBC count 8.5, hemoglobin 11.9, hematocrit 34, platelet count 396. Sodium 134, potassium 4.2, chloride 98, bicarb 29, BUN 12, creatinine 0.64. CRP decreasing from 148 to 82. Fluid from joint was aspirated on 06/07/19, that showed 54% neutrophils. Influenza A and B negative. Blood cultures positive for MRSA. Negative legionella, Strep pneumo antigens. Body fluid negative for MRSA. Repeat blood cultures, Staph epidermidis. Cultures from 06/09/[address] chest performed on 06/15/19, was personally reviewed by me - areas of nodular lesions with 1.5 cm irregular nodule in the right middle lobe. The patient with moderate size left pleural effusion. Slightly prominent mediastinal nodes were noted. Consolidation in the left lower lobe noted. IMPRESSION AND RECOMMENDATIONS: 28-year-old male with bacteremia sepsis, history of intravenous drug abuse with pneumonia and lung abscesses and new left pleural effusion. Pleural effusion concerning for possible infection. The patient will be scheduled for thoracentesis today with drainage of the fluid for diagnostic reasons. Procedure was discussed in detail with the patient the associated risk including risk of pneumothorax was discussed. The patient agreeable to undergoing the procedure. Further recommendations pending thoracentesis. [id number]/[facility] #: [id number] [facility]
--- NOTE | 2019-06-18 10:34 | PN ---
Progress Note - Progress Note Date of Service: 06/18/19 SOAP: Subjective: CC: MRSA bacteremia and lung abscess HPI: Mr. Humphreys is a 28 yo male with PMH significant for IV drug use, and hepatitis C; transferred from [facility] for bacteremia, PNA, and lung abscess. Denies nausea, vomiting, diarrhea, joint pain, back pain, or ABD pain. He is moving all extremities. Reports intermittent fever and chills, 2 -3 loose stools daily, discomfort in the left chest/back, worse with deep breath. He feels like the pain and shortness of breath are overall improving. Objective: Vital Signs 06/18/19 06/18/19 06/18/19 07:31 07:32 07:34 Temperature 99.7 F Pulse Rate 70 Respiratory 18 18 18 Rate Blood Pressure 117/76 (mmHg) O2 Sat by Pulse 96 Oximetry Physical Exam: General: NAD, laying in bed Neurological: Alert and Oriented HEENT: Moist MM Cardiovascular: Heart rate regular Respiratory: Lung sounds clear bilateral, diminished sounds in the left lower lobe Abdominal: Bowel sounds present; ABD soft, non tender and non distended MSK: No tenderness with palpation of the neck, back or spine. No edematous joints. No erythema to joints. Moves all extremities Skin: No rash Laboratory Results - last 24 hr 06/17/19 06/17/19 06/17/19 10:33 10:33 10:33 WBC 8.5 RBC 4.04 L Hgb 11.9 L Hct 34 L MCV 83 MCH 29 MCHC 35 RDW 13 Plt Count 396 MPV 6.8 L Neut % (Auto) 77.5 Lymph % (Auto) 13.6 [place] % (Auto) 5.5 Eos % (Auto) 2.4 Baso % (Auto) 1.0 Absolute Neuts (auto) 6.5 Absolute Lymphs (auto) 1.2 Absolute Monos (auto) 0.5 Absolute Eos (auto) 0.2 Absolute Basos (auto) 0.1 Absolute Nucleated RBC 0.0 Nucleated RBC % 0.0 INR (Anticoag Therapy) 1.30 H Sodium 134 L Potassium 4.2 Chloride 98 L Carbon Dioxide 29 Anion Gap 7 BUN 12 Creatinine 0.64 L Est GFR ( Amer) 178.9 Est GFR (Non-Af Amer) 147.9 BUN/Creatinine Ratio 18.8 Glucose 128 H Calcium 9.5 Total Bilirubin 0.30 AST 22 ALT 43 Alkaline Phosphatase 56 C-Reactive Protein 82.52 H Total Protein 8.2 Albumin 3.6 Globulin 4.6 H Albumin/Globulin Ratio 0.8 L Microbiology 06/09/19 13:42 Aerobic Blood Culture - Final No Source Provided No Growth Day 5 Anaerobic Blood Culture - Final No Growth Day 5 06/08/19 16:15 Aerobic Blood Culture - Final No Source Provided MRSA Anaerobic Blood Culture - Final No Growth Day 5 Blood MRSA/MSSA (PCR) - Final Mrsa Positive S.aureus Positive 06/08/19 16:15 Aerobic Blood Culture - Final No Source Provided No Growth Day 5 Anaerobic Blood Culture - Final Staphylococcus Epidermidis Blood MRSA/MSSA (PCR) - Final Mrsa Negative S.aureus Negative 06/07/19 15:42 Gram Stain - Final Sputum Expectorated Sputum Culture - Final MRSA Normal Keisha 06/07/19 10:37 Gram Stain - Final Joint Fluid(Synovial) - Shoulder Right Body Fluid Culture - Final No Growth Day 4 Skin and Soft Tissue MRSA/MSSA (PCR - Final Mrsa Negative S.aureus Negative 06/07/19 10:37 Anaerobic Culture - Final Body Fluid - Shoulder Right No Growth Day 4 06/06/19 19:51 Aerobic Blood Culture - Final Blood Venous MRSA Anaerobic Blood Culture - Final MRSA Blood MRSA/MSSA (PCR) - Final Mrsa Positive S.aureus Positive 06/06/19 19:51 Aerobic Blood Culture - Final Blood Venous MRSA Anaerobic Blood Culture - Final MRSA 06/07/19 04:21 Legionella Urinary Antigen - Final Urine Negative Legionella Antigen 06/07/19 04:21 Streptococcus pneumoniae Ag Screen - Final Urine Negative S. pneumo Antigen Assessment: 1. Bilateral PNA with lung abscesses. Urine antigens negative for S. Pneumo and legionella. Sputum culture with MRSA. Afebrile and no leukocytosis (not checked in a few days). Reports chest discomfort and shortness of breath are improving. Repeat chest xray with progression of left pleural effusion and left basilar atelectasis vs consolidation. Chest Ct with 1.5 cm irregular nodule of the right middle lobe and left pleural effusion. Plans for thoracentesis later today. 2. MRSA bacteremia. WALKER with no signs of vegetation, initially high suspicion for endocarditis in the setting of IV drug use. Repeat blood cultures from 06/09 with no growth. 3. Hepatitis C. Has not received treatment in the past. HIV negative. Plan: Continue vancomycin, trough goal 15-20. Day 12/14 of IV and then will plan to transition to oral ABX to complete the course (this plan may change if he is found to have a loculated pleural effusion). He should have weekly labs while on IV ABX: CBC, CMP, CRP, and vanco trough. Discussed with Alexandra Ho, OUTSIDE SAL[employer]OUNT EXECUTIVE
--- NOTE | 2019-06-18 12:51 | PN ---
Subjective Date of Service: 06/18/19 Interval History: Mr. Humphreys is feeling better this morning. SOB and left lateral pleuritic pain are improved. He has been ambulating without difficulty. Denies cough. He is nervous about having a thoracentesis today, but agreeable. No concerns from nursing. Family History: Unchanged from Admission Social History: Unchanged from Admission Past Medical History: Unchanged from Admission Objective Active Medications: Acetaminophen (Tylenol Tab*) 975 mg PO TID ALEX Clonidine HCl (Catapres Tab*) 0.1 mg PO TID ALEX Gabapentin (Neurontin Cap(*)) 600 mg PO TID ALEX Heparin Sodium (Porcine) (Heparin Flush Picc/Ml/Cvc(*)) 1 ml FLUSH 0600,1800 ALEX; Protocol Hydromorphone HCl (Dilaudid Tab*) 6 mg PO Q4H PRN PAIN - SEVERE Vancomycin HCl 1,250 mg/ (Sodium Chloride) 250 mls @ 166.667 mls/hr IV 0430, 1030,1630,2230 ALEX Lorazepam (Ativan Tab(*)) 0.5 mg PO Q4H PRN ANXIETY Nicotine Polacrilex (Nicotine Gum*) 4 mg PO Q2H PRN CRAVING Ondansetron HCl (Zofran Inj*) 4 mg IV Q4H PRN NAUSEA/VOMITING Vital Signs - 8 hr 06/18/19 06/18/19 06/18/19 07:31 07:32 07:34 Temperature 99.7 F Pulse Rate 70 Respiratory 18 18 18 Rate Blood Pressure 117/76 (mmHg) O2 Sat by Pulse 96 Oximetry 06/18/19 06/18/19 06/18/19 08:00 09:05 10:18 Temperature Pulse Rate Respiratory 18 18 18 Rate Blood Pressure (mmHg) O2 Sat by Pulse 96 Oximetry 06/18/19 06/18/19 06/18/19 11:12 11:38 12:07 Temperature 98.0 F Pulse Rate 64 Respiratory 18 18 20 Rate Blood Pressure 124/71 (mmHg) O2 Sat by Pulse 99 Oximetry Oxygen Devices in Use Now: None Appearance: Young adult male lying in bed in NAD Ears/Nose/Mouth/Throat: Mucous Membranes Moist Neck: NL Appearance and Movements; NL JVP, Trachea Midline Respiratory: Symmetrical Chest Expansion and Respiratory Effort, - - Diminished to LLL otherwise clear Cardiovascular: NL Sounds; No Murmurs; No JVD, RRR Neurological: Alert and Oriented x 3 Lines/Tubes/Other Access: Clean, Dry and Intact Peripheral IV Nutrition: Taking PO's Result Diagrams: 06/17/19 10:33 06/17/19 10:33 Assess/Plan/Problems-Billing Assessment: Mr. Humphreys is a 28 yo M with PMH of HCV, substance abuse; who presented with MRSA bacteremia noted on BC from [place], bilat LL pneumonia with abscesses, R shoulder pain. - Patient Problems (1) Bacteremia Code(s): R78.81 - BACTEREMIA Comment: - MRSA positive bacteremia - Repeat BC without growth - WALKER without vegetation - Appreciate ID consult - Continue vanco (day 04/28); may need longer course of abx pending findings from pleural fluid (2) Bilateral pneumonia Code(s): J18.9 - PNEUMONIA, UNSPECIFIED ORGANISM Comment: - Bilat pneumonia with cavitary masses noted on imaging from [place] - Negative urine antigen for S. pneumo, Legionella - Sputum culture growing MRSA - WALKER negative for vegetation; still high suspicion for endocarditis - CT showing large left pleural effusion, not loculated - Appreciate ID consult - Will need thoracentesis, likely tomorrow - Continue vanco (day 04/28), Dilaudid (decrease to 4mg q4h starting tomorrow) (3) Jaw pain Code(s): R68.84 - JAW PAIN Comment: - Resolved (4) Right shoulder pain Code(s): M25.511 - PAIN IN RIGHT SHOULDER Comment: - Resolved (5) IV drug abuse Code(s): F19.10 - OTHER PSYCHOACTIVE SUBSTANCE ABUSE, UNCOMPLICATED Comment: - Last used 06/06 - SW involved; patient refuses inpatient rehab - Willing to start Suboxone prior to d/c - Continue gabapentin, lorazepam, clonidine (6) HCV (hepatitis C virus) Comment: - Without previous treatment - Patient states that last time it was checked, viral count was low (7) DVT prophylaxis Code(s): Z29.9 - ENCOUNTER FOR PROPHYLACTIC MEASURES, UNSPECIFIED Comment: -SCDs (8) Full code status Code(s): Z78.9 - OTHER SPECIFIED HEALTH STATUS Comment: Status and Disposition: Inpatient. Anticipate d/c home when medically stable and abx course is finished. Attending: Kina Hsieh
--- NOTE | 2019-06-18 14:06 | BRIEFOPN ---
Brief Operative/Procedure Note - Operation Details Pre-Op Diagnosis: Left pl effusion Post-Op Diagnosis: Multi loculated lt effusion Procedures: U/S guided thoracentesis Surgeon(s)/Proceduralists: moncho Lyons Anesthesia: Local with 1% lidocaine 5cc Estimated Blood Loss: None Findings: Multi loculated effusion, able to drain 5cc from one of the pockets, serosanguinous, turbid fluid Specimen(s)/Culture(s) Description: Sent to lab Complications: None
[2019-06-18 14:15] LABS: Body Fluid Source Pleural Fluid
[2019-06-18] MEDS ORDERED: HYDROmorphone INJ1* 1 MG/ML SYRINGE IV SLOW PU ONE (15:31)
[2019-06-18 15:33] LABS: Body Fluid Mono 33 %
--- NOTE | 2019-06-19 00:13 | PRO ---
THORACENTESIS REPORT: DATE OF PROCEDURE: 06/18/19 - ROOM #406 PREPROCEDURAL DIAGNOSIS: Loculated effusion. POSTPROCEDURAL DIAGNOSIS: Multiloculated and complex pleural space with pockets of fluid. ANESTHESIA: Local anesthesia with 1% lidocaine 8 cc. DESCRIPTION OF PROCEDURE: Informed consent was obtained from the patient prior to the procedure after all the risks and benefits were thoroughly explained. The patient being treated for bacteremia secondary to Staph aureus MRSA, also with joint infection. The patient also with pneumonia with possible lung abscesses, was found to have left-sided effusion. Appropriate time-out was performed and agreed on by attending staff. The patient was sitting up and leaning forward during the procedure. Portable ultrasound was utilized at bedside to localize small amounts of loculated effusion organized into multiple pockets. Significant atelectasis of the lung was noted. Densities also noted in the pleural fluid. Area was disinfected with chlorhexidine. Sterile drape was applied. An 8-Togolese thoracentesis catheter was utilized. After ultrasound localization, 1% lidocaine was instilled intradermally subcutaneously down into the pleural space taking precautions. A #11 scalpel blade was used to make a stab incision. CareFusion 8-Togolese thoracentesis catheter was subsequently inserted under manual suction taking precautions. Catheter was left in place and needle was removed. Only 5 cc of serosanguineous turbid fluid was removed. The patient complained of significant pain and catheter was removed. The patient reported improvement in pain subsequently. Given complex fluid, Surgery will be consulted for chest tube placement. Fluid was sent for cultures. [id number]/[facility] #: [id number] ANAND
[2019-06-19] MEDS: HYDROmorphone TAB* 4 MG PO PRN ×6 (00:37→21:35)
[2019-06-19] MEDS: Vancomycin(*) 1,250 MG in NS 0.9% 250 ML* 250 ML IV SCH ×5 (04:27→21:36)
--- NOTE | 2019-06-19 08:02 | PN ---
Progress Note - Progress Note Date of Service: 06/18/19 Note: Surgery note (late entry): S: 28 yo male w/ loculated Left pleural effusion. We were asked to place a chest tube for improved drainage of this effusion after failed thoracentesis (5 cc obtained). Patient also seen by Dr. Anders. O: (examined by PA student, Yulisa Nielsen) afeb; VSS Gen: WN, WD, in NAD Heart: reg Lungs: clear upper weinstein; w/ decreased BS at L base; no dyspnea CT chest personally reviewed as well as US report: loculated moderate size Left pleural effusion (estimated volume 300 - 500 ml) A/P: Left pleural effusion, loculated After review of the indications, risks, benefits, and alternatives, the patient elected to not undergo placement of the chest tube at this interval. Pending results of the gram stain and culture as well as his continued clinical condition, he may revisit the recommendation. Please recall if he is willing to undergo the procedure.
[2019-06-19] MEDS: LORazepam TAB(*) 0.5 MG PO PRN (08:51)
--- NOTE | 2019-06-19 09:59 | PN ---
Progress Note - Progress Note Date of Service: 06/19/19 SOAP: Subjective: CC: Loculated pleural effusion HPI: Mr. Humphreys is a 28 yo male with PMH significant for IV drug use, and hepatitis C; transferred from [facility] for bacteremia, PNA, and lung abscess. Denies fever, chills, nausea, vomiting, diarrhea, joint pain, back pain, or ABD pain. He is moving all extremities. Reports 2-3 loose stools daily, discomfort in the left back that is improving. He had declined a chest tube as he is afraid about the discomfort that it will cause. We discussed that he will likely need a chest tube to help resolve the infection. Objective: Vital Signs 06/19/19 06/19/19 06/19/19 08:00 08:45 08:50 Temperature 98.6 F Pulse Rate 66 Respiratory 18 16 16 Rate Blood Pressure 124/68 (mmHg) O2 Sat by Pulse 96 96 Oximetry Physical Exam: General: NAD, laying in bed Neurological: Alert and Oriented HEENT: Moist MM Cardiovascular: Heart rate regular Respiratory: Lung sounds clear bilateral, diminished sounds in the left lower lobe Abdominal: Bowel sounds present; ABD soft, non tender and non distended MSK: No tenderness with palpation of the neck, back or spine. No edematous or erythema of the joints. Moves all extremities Skin: No rash Laboratory Results - last 24 hr 06/18/19 14:00 Fluid Source Pleural fluid Fluid Volume 1 Fluid Color Red Fluid Appearance Bloody Fluid WBC 4372 Fluid RBC 206139 Fluid Tot Cell Count 100 Fluid Neutrophils 7 Fluid Lymphocytes 60 Fluid Monocytes 33 Microbiology 06/18/19 14:00 Gram Stain - Final Pleural Fluid Skin and Soft Tissue MRSA/MSSA (PCR - Final Mrsa Positive S.aureus Positive 06/07/19 10:37 Fungal Culture - Preliminary Misc Source (See Comment) - Shoulder Right No Growth Week 1 06/09/19 13:42 Aerobic Blood Culture - Final No Source Provided No Growth Day 5 Anaerobic Blood Culture - Final No Growth Day 5 06/08/19 16:15 Aerobic Blood Culture - Final No Source Provided MRSA Anaerobic Blood Culture - Final No Growth Day 5 Blood MRSA/MSSA (PCR) - Final Mrsa Positive S.aureus Positive 06/08/19 16:15 Aerobic Blood Culture - Final No Source Provided No Growth Day 5 Anaerobic Blood Culture - Final Staphylococcus Epidermidis Blood MRSA/MSSA (PCR) - Final Mrsa Negative S.aureus Negative 06/07/19 15:42 Gram Stain - Final Sputum Expectorated Sputum Culture - Final MRSA Normal Keisha 06/07/19 10:37 Gram Stain - Final Joint Fluid(Synovial) - Shoulder Right Body Fluid Culture - Final No Growth Day 4 Skin and Soft Tissue MRSA/MSSA (PCR - Final Mrsa Negative S.aureus Negative 06/07/19 10:37 Anaerobic Culture - Final Body Fluid - Shoulder Right No Growth Day 4 06/06/19 19:51 Aerobic Blood Culture - Final Blood Venous MRSA Anaerobic Blood Culture - Final MRSA Blood MRSA/MSSA (PCR) - Final Mrsa Positive S.aureus Positive 06/06/19 19:51 Aerobic Blood Culture - Final Blood Venous MRSA Anaerobic Blood Culture - Final MRSA 06/07/19 04:21 Legionella Urinary Antigen - Final Urine Negative Legionella Antigen 06/07/19 04:21 Streptococcus pneumoniae Ag Screen - Final Urine Negative S. pneumo Antigen Assessment: 1. Bilateral PNA with lung abscesses. Urine antigens negative for S. Pneumo and legionella. Sputum culture with MRSA. Afebrile and no leukocytosis. Reports left sided chest/back discomfort and shortness of breath are improving. Repeat chest xray with progression of left pleural effusion and left basilar atelectasis vs consolidation. Chest Ct with 1.5 cm irregular nodule of the right middle lobe and left pleural effusion. Attempted thoracentesis yesterday, only able to obtain ~ 5ml. 2. Loculated pleural effusion. Attempted thoracentesis yesterday, only able to obtain ~ 5ml. Preliminary cultures PCR positive for staph aureus and MRSA. 3. MRSA bacteremia. WALKER with no signs of vegetation, initially high suspicion for endocarditis in the setting of IV drug use. Repeat blood cultures from 06/09 with no growth. 4. Hepatitis C. Has not received treatment in the past. HIV negative. Plan: Continue vancomycin, trough goal 15-20; day 13 of IV (total length of IV will be determined based on clinical course and results from the thoracentesis) and then will plan to transition to oral ABX to complete the course. He should have weekly labs while on IV ABX: CBC, CMP, CRP, and vanco trough. Recommend chest tube placement vs Pigtail drain. Discussed with ARMOND Green
[2019-06-19] MEDS: Acetaminophen TAB* 325 MG PO SCH ×3 (10:37→20:15)
[2019-06-19] MEDS: Gabapentin CAP(*) 300 MG PO SCH ×3 (10:38→20:15)
[2019-06-19] MEDS: cloNIDine TAB* 0.1 MG PO SCH ×3 (10:38→20:15)
--- NOTE | 2019-06-19 11:59 | PN ---
Subjective Date of Service: 06/19/19 Interval History: Mr. Humphreys states he is breathing better. He has occasional shortness of breath and L lateral chest wall pain, but reports improvement in cough. He has intermittent fever/chills. He states that his jaw and shoulder pain are resolved. He has no other complaints today. Family History: Unchanged from Admission Social History: Unchanged from Admission Past Medical History: Unchanged from Admission Objective Active Medications: Acetaminophen (Tylenol Tab*) 975 mg PO TID [facility] Last Admin: 06/19/19 10:37 Dose: 975 mg Clonidine HCl (Catapres Tab*) 0.1 mg PO TID [facility] Last Admin: 06/19/19 10:38 Dose: 0.1 mg Gabapentin (Neurontin Cap(*)) 600 mg PO TID [facility] Last Admin: 06/19/19 10:38 Dose: 600 mg Heparin Sodium (Porcine) (Heparin Flush Picc/Ml/Cvc(*)) 1 ml FLUSH 0600,1800 [facility]; Protocol Last Admin: 06/19/19 04:32 Dose: Not Given Hydromorphone HCl (Dilaudid Tab*) 4 mg PO Q4H PRN PRN Reason: PAIN - SEVERE Last Admin: 06/19/19 08:50 Dose: 4 mg Vancomycin HCl 1,250 mg/ (Sodium Chloride) 250 mls @ 166.667 mls/hr IV 0430, 1030,1630,2230 [facility] Last Admin: 06/19/19 10:37 Dose: 166.667 mls/hr Lorazepam (Ativan Tab(*)) 0.5 mg PO Q4H PRN PRN Reason: ANXIETY Last Admin: 06/19/19 08:51 Dose: 0.5 mg Nicotine Polacrilex (Nicotine Gum*) 4 mg PO Q2H PRN PRN Reason: CRAVING Last Admin: 06/09/19 13:53 Dose: 4 mg Ondansetron HCl (Zofran Inj*) 4 mg IV Q4H PRN PRN Reason: NAUSEA/VOMITING Last Admin: 06/13/19 13:06 Dose: 4 mg Pharmacy Consult (Vancomycin Per Pharmacy*) 1 note FOLLOW UP .VANC PER PHARMACY [facility]; Protocol Vital Signs: Temp Pulse Resp BP Pulse Ox 97.1 F 64 17 123/63 98 06/19/19 14:00 06/19/19 14:00 06/19/19 14:15 06/19/19 14:00 06/19/19 14:00 Oxygen Devices in Use Now: None Appearance: Mr. Humphreys is a young white male who is standing in his room. He is breathing comfortably on room air and appears to be in no acute distress. Eyes: No Scleral Icterus, PERRLA Ears/Nose/Mouth/Throat: NL Teeth, Lips, Gums, Clear Oropharnyx, Mucous Membranes Moist Neck: NL Appearance and Movements; NL JVP, Trachea Midline Respiratory: Symmetrical Chest Expansion and Respiratory Effort, Clear to Auscultation Cardiovascular: NL Sounds; No Murmurs; No JVD, RRR, No Edema Abdominal: NL Sounds; No Tenderness; No Distention, No Hepatosplenomegaly Extremities: No Edema, No Clubbing, Cyanosis Neurological: Alert and Oriented x 3 Result Diagrams: 06/17/19 10:33 06/19/19 15:57 Microbiology and Other Data: Microbiology 06/07/19 10:37 Gram Stain - Final Joint Fluid(Synovial) - Shoulder Right Skin and Soft Tissue MRSA/MSSA (PCR - Final Mrsa Negative S.aureus Negative 06/06/19 19:51 Aerobic Blood Culture - Preliminary Blood Venous Anaerobic Blood Culture - Preliminary Blood MRSA/MSSA (PCR) - Final Mrsa Positive S.aureus Positive 06/06/19 19:51 Aerobic Blood Culture - Preliminary Blood Venous Anaerobic Blood Culture - Preliminary 06/07/19 04:21 Legionella Urinary Antigen - Final Urine Negative Legionella Antigen 06/07/19 04:21 Streptococcus pneumoniae Ag Screen - Final Urine Negative S. pneumo Antigen Assess/Plan/Problems-Billing Assessment: Mr. Humphreys is a 28 yo M with PMH of HCV, substance abuse; who presented with MRSA bacteremia noted on BC from [place], bilat LL pneumonia with abscesses. - Patient Problems (1) Bilateral pneumonia Comment: - Bilat pneumonia with cavitary masses noted on imaging from [place] - Negative urine antigen for S. pneumo, Legionella - Sputum culture growing MRSA - WALKER negative for vegetation; still high suspicion for endocarditis - CT showing large left pleural effusion, not loculated - Appreciate ID consult - Continue vanco (day 13/14), Dilaudid (decrease to 4mg q4h starting tomorrow) - Thoracentesis yesterday revealed multiloculated, complex pleural effusion; pulm recommends chest tube - Patient currently refusing chest tube; discussed risks and benefits, and he would prefer to continue IV antibiotics and assess for improvement in coming days (2) Bacteremia Comment: - MRSA positive bacteremia - Repeat BC without growth - WALKER without vegetation - Appreciate ID consult - Continue vanco (day 13/14); may need longer course of abx pending findings from pleural fluid (3) IV drug abuse Comment: - Last used 06/06 - SW involved; patient refuses inpatient rehab - Willing to start Suboxone prior to d/c - Continue gabapentin, lorazepam, clonidine (4) HCV (hepatitis C virus) Comment: - Without previous treatment - Patient states that last time it was checked, viral count was low (5) DVT prophylaxis Comment: -SCDs (6) Full code status Comment: Status and Disposition: Inpatient. Anticipate d/c home when medically stable and abx course is finished.
[2019-06-19] MEDS ORDERED: Vancomycin Trough Check NOTE FOLLOW UP ONE (16:00)
[2019-06-19 16:35] LABS: EGFR African American 146.7 (>60); EGFR Non-African American 121.3 (>60)
[2019-06-19 16:41] LABS: Fluid Type, Protein, Total PLEURAL
[2019-06-19 16:46] LABS: Vancomycin Trough 22.5 mcg/mL
[2019-06-20] MEDS: HYDROmorphone TAB* 4 MG PO PRN ×5 (01:52→22:02)
[2019-06-20] MEDS ORDERED: Vancomycin(*) 1,250 MG in NS 0.9% 250 ML* 250 ML IV SCH (05:30)
--- NOTE | 2019-06-20 09:55 | PN ---
Progress Note - Progress Note Date of Service: 06/20/19 SOAP: Subjective: CC: pleural effusion HPI: 28 year old man with MRSA bacteremia, lung abscess, complex left pleural effusion. Thoracentesis was MRSA PCR postive, culture negative, while on vancomycin. He has no fever or chest pain, appetite is good. No rash or diarrhea. Objective: Vital Signs Temp 37.1 C 06/20/19 07:50 Pulse 69 06/20/19 07:50 Resp 16 06/20/19 08:21 BP 117/64 06/20/19 07:50 Pulse Ox 96 06/20/19 08:00 Intake & Output 06/19/19 06/20/19 06/20/19 18:59 06:59 18:59 Intake Total 1750 305 Output Total 4 Balance 1746 305 Intake: IV Fluids 115 20 NS (0.9%) 115 20 IVPB 565 285 ABX - VANCOMYCIN 565 285 Oral 1070 0 Output: Urine 4 Other: Estimated Void Medium # Bowel Movements 2 Estimated Stool Amount Medium Gen:awake, no diarrhea HEENT: no thrush Heart:no murmur Lungs:decr BS left base Abd:+BS NTND soft Skin:no rash MSK: no spine tenderness or joint synovitis Laboratory Results - last 24 hr 06/18/19 06/18/19 06/18/19 14:00 14:00 14:00 BUN Creatinine Est GFR ( Amer) Est GFR (Non-Af Amer) Fluid Source TNP Pleural Fluid Cell Count Rvw By Fluid Total Protein 5.6 Fluid LDH TNP Vancomycin Trough 06/19/19 15:57 BUN 17 Creatinine 0.76 Est GFR ( Amer) 146.7 Est GFR (Non-Af Amer) 121.3 Fluid Source Fluid Cell Count Rvw By Fluid Total Protein Fluid LDH Vancomycin Trough 22.5 Assessment: 1. MRSA bacteremia, lung abscess, complex parapneumonic effusion on the left, MRSA PCR+, culture- either due to growth suppression by abx or just detecting organism. 2. 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 continue vancomycin, needs drainage of effusion, he currently not willing to have chest tube, recheck US to see if change in size of effusion and if pigtail drain would be possible, he seems more amenable to that approach. We discussed high risk of recurrence after finishing antibiotics without drainage of pleural space. 35 minutes floor time >50% face to face in counseling regarding need for drainage procedure, all questions answered.
[2019-06-20 10:19] LABS: EGFR African American 158.7 (>60); EGFR Non-African American 131.2 (>60)
[2019-06-20] MEDS: Acetaminophen TAB* 325 MG PO SCH ×3 (10:23→22:03)
[2019-06-20] MEDS: Gabapentin CAP(*) 300 MG PO SCH ×3 (10:23→22:02)
[2019-06-20] MEDS: cloNIDine TAB* 0.1 MG PO SCH ×3 (10:24→22:03)
--- NOTE | 2019-06-20 10:29 | PN ---
Subjective Date of Service: 06/20/19 Interval History: Mr. Humphreys continues to report pain in the L lateral chest that is worse with deep breathing or movement. He rates pain at 4/10. He denies SOB, cough. Discussed chest tube/pigtail insertion today, and patient still refusing, stating he is worried about the pain. Discussed medical necessity and that fluid collection likely will not improve without drainage, and he is considering , but would prefer to avoid the procedure. No other complaints today. Family History: Unchanged from Admission Social History: Unchanged from Admission Past Medical History: Unchanged from Admission Objective Active Medications: Acetaminophen (Tylenol Tab*) 975 mg PO TID [facility] Last Admin: 06/19/19 20:15 Dose: 975 mg Clonidine HCl (Catapres Tab*) 0.1 mg PO TID [facility] Last Admin: 06/19/19 20:15 Dose: 0.1 mg Gabapentin (Neurontin Cap(*)) 600 mg PO TID [facility] Last Admin: 06/19/19 20:15 Dose: 600 mg Heparin Sodium (Porcine) (Heparin Flush Picc/Ml/Cvc(*)) 1 ml FLUSH 0600,1800 [facility]; Protocol Last Admin: 06/20/19 03:59 Dose: Not Given Hydromorphone HCl (Dilaudid Tab*) 4 mg PO Q4H PRN PRN Reason: PAIN - SEVERE Last Admin: 06/20/19 06:17 Dose: 4 mg Vancomycin HCl 1,250 mg/ (Sodium Chloride) 250 mls @ 166.667 mls/hr IVPB Q8H [facility] Lorazepam (Ativan Tab(*)) 0.5 mg PO Q4H PRN PRN Reason: ANXIETY Last Admin: 06/19/19 08:51 Dose: 0.5 mg Nicotine Polacrilex (Nicotine Gum*) 4 mg PO Q2H PRN PRN Reason: CRAVING Last Admin: 06/09/19 13:53 Dose: 4 mg Ondansetron HCl (Zofran Inj*) 4 mg IV Q4H PRN PRN Reason: NAUSEA/VOMITING Last Admin: 06/13/19 13:06 Dose: 4 mg Pharmacy Consult (Vancomycin Per Pharmacy*) 1 note FOLLOW UP .VANC PER PHARMACY [facility]; Protocol Vital Signs: Temp Pulse Resp BP Pulse Ox 98.7 F 69 16 117/64 96 06/20/19 07:50 06/20/19 07:50 06/20/19 10:23 06/20/19 07:50 06/20/19 08:00 Oxygen Devices in Use Now: None Appearance: Mr. Humphreys is a young white male who is sitting up in bed. He appears to be in no acute distress and is breathing comfortably on room air. Eyes: No Scleral Icterus, PERRLA Ears/Nose/Mouth/Throat: NL Teeth, Lips, Gums, Clear Oropharnyx, - - Dry oral mucosa Neck: NL Appearance and Movements; NL JVP, Trachea Midline Respiratory: Symmetrical Chest Expansion and Respiratory Effort, - - faint crackles with mildly diminished breath sounds in LLL Cardiovascular: NL Sounds; No Murmurs; No JVD, RRR, No Edema Abdominal: NL Sounds; No Tenderness; No Distention, No Hepatosplenomegaly Skin: - - multiple scarred areas on b/l UE Neurological: Alert and Oriented x 3 Result Diagrams: 06/17/19 10:33 06/20/19 09:50 Microbiology and Other Data: Microbiology 06/07/19 10:37 Gram Stain - Final Joint Fluid(Synovial) - Shoulder Right Skin and Soft Tissue MRSA/MSSA (PCR - Final Mrsa Negative S.aureus Negative 06/06/19 19:51 Aerobic Blood Culture - Preliminary Blood Venous Anaerobic Blood Culture - Preliminary Blood MRSA/MSSA (PCR) - Final Mrsa Positive S.aureus Positive 06/06/19 19:51 Aerobic Blood Culture - Preliminary Blood Venous Anaerobic Blood Culture - Preliminary 06/07/19 04:21 Legionella Urinary Antigen - Final Urine Negative Legionella Antigen 06/07/19 04:21 Streptococcus pneumoniae Ag Screen - Final Urine Negative S. pneumo Antigen Assess/Plan/Problems-Billing Assessment: Mr. Humphreys is a 28 yo M with PMH of HCV, substance abuse; who presented with MRSA bacteremia noted on BC from [place], bilat LL pneumonia with abscesses. - Patient Problems (1) Bilateral pneumonia Comment: - Bilat pneumonia with cavitary masses noted on imaging from [place] - Negative urine antigen for S. pneumo, Legionella - Sputum culture growing MRSA - WALKER negative for vegetation; still high suspicion for endocarditis - CT showing large left pleural effusion, not loculated - Appreciate ID consult - Continue vanco (day 14); will continue pending decision regarding chest tube - Dilaudid (decrease to 4mg q4h) - Thoracentesis 06/18 revealed multiloculated, complex pleural effusion, MRSA positive; pulm recommends chest tube - Patient currently refusing chest tube; discussed risks and benefits, and he would prefer to continue IV antibiotics and assess for improvement in coming days - US chest unchanged pleural effusion - Pt agreeable to chest tube under anaesthesia; plan for NPO after midnight (2) Bacteremia Comment: - MRSA positive bacteremia - Repeat BC without growth - WALKER without vegetation - Appreciate ID consult - Continue vanco (day 14); may need longer course of abx pending findings from pleural fluid (3) IV drug abuse Comment: - Last used 06/06 - SW involved; patient refuses inpatient rehab - Willing to start Suboxone prior to d/c - Continue gabapentin, lorazepam, clonidine (4) HCV (hepatitis C virus) Comment: - Without previous treatment - Patient states that last time it was checked, viral count was low (5) DVT prophylaxis Comment: -SCDs (6) Full code status Comment: Status and Disposition: Inpatient. Anticipate d/c home when medically stable and abx course is finished.
[2019-06-20] MEDS ORDERED: Vancomycin Trough Check NOTE FOLLOW UP ONE (10:30)
[2019-06-20] MEDS ORDERED: Vancomycin Trough Check NOTE FOLLOW UP SCH (13:00)
[2019-06-20] MEDS: Vancomycin(*) 1,250 MG in NS 0.9% 250 ML* 250 ML IVPB SCH (16:08)
--- NOTE | 2019-06-20 16:31 | PN ---
Progress Note - Progress Note Date of Service: 06/20/19 - Pulm f/u note Note: Pt seen and examined at bedside, pt reports improvement in chest pain that has occurred post thoracentesis. Has declined chest tube/pig tail Active Medications Generic Name Dose Route Start Last Admin Trade Name Freq PRN Reason Stop Dose Admin Acetaminophen 975 mg 06/07/19 09:00 06/20/19 14:51 Tylenol Tab* PO 975 mg TID ALEX Administration Clonidine HCl 0.1 mg 06/10/19 14:00 06/20/19 14:50 Catapres Tab* PO 0.1 mg TID ALEX Administration Gabapentin 600 mg 06/10/19 14:00 06/20/19 14:50 Neurontin Cap(*) PO 600 mg TID ALEX Administration Heparin Sodium (Porcine) 1 ml 06/14/19 18:00 06/20/19 03:59 Heparin Flush Picc/Ml/Cvc(*) FLUSH Not Given 0600,1800 [facility] Protocol Hydromorphone HCl 4 mg 06/19/19 00:01 06/20/19 16:15 Dilaudid Tab* PO 4 mg Q4H PRN Administration PAIN - SEVERE Vancomycin HCl 1,250 mg/ 250 mls @ 166.667 mls/hr 06/20/19 16:00 06/20/19 16: 08 Sodium Chloride IVPB 166.667 mls/hr Q8H [facility] Administration Lorazepam 0.5 mg 06/16/19 10:11 06/19/19 08:51 Ativan Tab(*) PO 0.5 mg Q4H PRN Administration ANXIETY Nicotine Polacrilex 4 mg 06/06/19 23:11 06/09/19 13:53 Nicotine Gum* PO 4 mg Q2H PRN Administration CRAVING Ondansetron HCl 4 mg 06/06/19 23:21 06/13/19 13:06 Zofran Inj* IV 4 mg Q4H PRN Administration NAUSEA/VOMITING Pharmacy Consult 1 note 06/06/19 23:45 Vancomycin Per Pharmacy* FOLLOW UP .VANC PER PHARMACY [facility] Protocol Pharmacy Profile Note 1 note 06/21/19 07:30 Vancomycin Trough Check FOLLOW UP 06/21/19 07:31 0730 ONE Vital Signs Temp Pulse Resp BP Pulse Ox 98.3 F 62 18 113/64 97 06/20/19 12:10 06/20/19 12:10 06/20/19 16:15 06/20/19 12:10 06/20/19 15:44 O/E: Pt in NAD HEENT: PERRLA Lungs: Dimnished at lt base CVS: S1, S2+ Abd: Soft, BS+ Ext: Normal ROM Neuro: NO focal deficits Laboratory Results - last 24 hr 06/18/19 06/18/19 06/18/19 14:00 14:00 14:00 BUN Creatinine Est GFR ( Amer) Est GFR (Non-Af Amer) Fluid Source TNP Pleural Fluid Cell Count Rvw By Fluid Total Protein 5.6 Fluid LDH TNP Vancomycin Trough 06/19/19 06/20/19 15:57 09:50 BUN 17 13 Creatinine 0.76 0.71 Est GFR ( Amer) 146.7 158.7 Est GFR (Non-Af Amer) 121.3 131.2 Fluid Source Fluid Cell Count Rvw By Fluid Total Protein Fluid LDH Vancomycin Trough 22.5 I/R: 28 y o with IV drug abuse admnitted with MRSA bacteremia, found to have MRSA PNA and complex pleural fluid MRSA positive from pleural fluid. Pl space looking complex on U/S. Will need chest tube/pig tail drainage Pt agreed for pig tail insertion today Will likely need dornase/tPA through the tube c/w abx Had lengthy discussion with pt today regarding need for definitive drainage for the fluid D/w Idalmis castro
[2019-06-21] MEDS: Vancomycin(*) 1,250 MG in NS 0.9% 250 ML* 250 ML IVPB SCH ×2 (00:33→10:34)
[2019-06-21] MEDS: HYDROmorphone TAB* 4 MG PO PRN ×2 (02:07→09:19)
[2019-06-21] MEDS: Gabapentin CAP(*) 300 MG PO SCH ×4 (02:18→19:51)
[2019-06-21] MEDS: Acetaminophen TAB* 325 MG PO SCH ×4 (02:19→19:55)
[2019-06-21] MEDS ORDERED: Vancomycin Trough Check NOTE FOLLOW UP ONE (07:30)
[2019-06-21] MEDS: cloNIDine TAB* 0.1 MG PO SCH ×3 (09:21→19:55)
--- NOTE | 2019-06-21 09:49 | CONSULT ---
Consult Consult: DATE OF CONSULTATION: 06/21/19 REASON FOR CONSULTATION: Chest tube for loculated pleural effusion HPI: Lewis Humphreys is a 28-year-old with a history of IV drug abuse and hepatitis C who presented to the hospital on 06/06/19 with left-sided chest pain, shortness of breath, and fever. He initially had presented to [facility] with these symptoms on 06/05/19. he was diagnosed with bilateral lower lobe pneumonia and bacteremia. However he left AMA because his mother needed a ride. He returned to the ED at [facility] and was admitted for treatment of bilateral lower lobe pneumonia with abscesses and bacteremia and endocarditis work up. Since admission to [facility], he reports the shortness of breath has resolved, and he feels like his usual self. He has been afebrile since 06/15. Cultures from right shoulder fluid, blood, and sputum have shown MRSA. He is currently being treated with vancomycin, and infectious disease is following. He underwent thoracentesis for a left pleural effusion by Dr. Lyons on 06/18/19. However, the fluid was complex, and she was only able to get about 5 mL out. The pleural fluid also grew MRSA. Ultrasound performed yesterday shows complex left pleural effusion. General surgery was consulted after the attempted thoracentesis for chest tube placement. However, the patient refused to undergo the procedure at that time. He now is agreeable to proceed with the chest tube placement under sedation. PMH: Hepatitis C. IV drug abuse. PSH: None Home Medications Medication Instructions Recorded Confirmed Type NK [No Home Medications Reported] 06/06/19 06/06/19 History Allergies No Known Allergies Allergy (Verified 06/06/19 18:09) FH: He reports his parents and siblings are healthy. He denies family history of cancer or bleeding disorders. SH: He smokes about a half pack per day. He started smoking at age 14. He denies alcohol use. He uses heroin and was using up until admission. He is not working currently, and he lives alone. ROS: 10 point review of systems was obtained. Pertinent positives and negatives are in the HPI. PHYSICAL EXAM: Vital Signs - 12 hr Temp Pulse Resp BP Pulse Ox 06/21/19 09:20 16 06/21/19 09:19 16 06/21/19 08:00 17 99 06/21/19 07:35 98.2 F 67 16 129/74 99 02/06/20 04:10 16 06/21/19 03:04 98.4 F 66 18 140/76 98 06/21/19 02:18 16 06/21/19 02:07 16 06/21/19 00:32 16 06/21/19 00:00 99 06/20/19 23:39 98.7 F 77 18 139/81 99 06/20/19 22:02 16 General: No acute distress, lying in bed. Head: Normocephalic and atraumatic. Eyes: Pupils are equal. No scleral icterus. Mouth: Moist mucous membranes. Neck: Supple. Trachea midline. CV: Regular rate and rhythm. Respiratory: Diminished breath sounds at the left base. Clear to auscultation on the right. No accessory muscle use. Abdomen: Soft, nontender, nondistended. Extremities: Warm. No pedal edema. Skin: Warm and dry. Intact. Neuro: Alert and oriented 3. Moves all extremities equally. Psych: Affect normal. Laboratory Results - last 24 hr 06/21/19 06/21/19 06/21/19 09:25 09:25 09:25 WBC 5.3 RBC 4.18 Hgb 12.0 L Hct 34 L MCV 82 MCH 29 MCHC 35 RDW 13 Plt Count 383 MPV 7.0 L Neut % (Auto) 57.9 Lymph % (Auto) 23.8 [place] % (Auto) 11.5 Eos % (Auto) 3.9 Baso % (Auto) 2.9 Absolute Neuts (auto) 3.1 Absolute Lymphs (auto) 1.3 Absolute Monos (auto) 0.6 Absolute Eos (auto) 0.2 Absolute Basos (auto) 0.2 Absolute Nucleated RBC 0.0 Nucleated RBC % 0.1 Sodium 135 Potassium 4.3 Chloride 98 L Carbon Dioxide 30 Anion Gap 7 BUN 14 Creatinine 0.66 L Est GFR ( Amer) 172.7 Est GFR (Non-Af Amer) 142.7 BUN/Creatinine Ratio 21.2 H Glucose 96 Calcium 9.8 Total Bilirubin 0.30 AST 20 ALT 36 Alkaline Phosphatase 54 C-Reactive Protein 48.23 H Total Protein 7.9 Albumin 3.6 Globulin 4.3 H Albumin/Globulin Ratio 0.8 L Vancomycin Trough 11.1 IMPRESSION: 28-year-old with a history of IV drug abuse with a loculated empyema. The patient is now agreeable to proceed with chest tube for drainage. Risks were discussed including bleeding, lung injury, or pain from the tube. PLAN: Chest tube placement under moderate sedation in the operating room today. NPO Continue vancomycin.
[2019-06-21 09:52] LABS: ABS Basophils 0.2 10^3/ul (0-0.2); ABS Eosinophils 0.2 10^3/ul (0-0.6); ABS Lymphocytes 1.3 10^3/ul (1.0-4.8); ABS Monocytes 0.6 10^3/ul (0-0.8); ABS Neutrophils 3.1 10^3/ul (1.5-7.7); Eosinophil % 3.9 %; Hematocrit 34 % (42-52); Lymphocyte % 23.8 %; Mean Corpuscular HGB Conc 35 g/dL (31-36); Mean Corpuscular Hemoglobin 29 pg (27-31); Mean Corpuscular Volume 82 fL (80-94); Nucleated Red Blood Cells % 0.1; Platelet Count 383 10^3/uL (150-450); Red Blood Count 4.18 10^6 /uL (4.18-5.48); Red Cell Distribution Width 13 % (10-15); White Blood Count 5.3 10^3/uL (3.5-10.8)
[2019-06-21 10:14] LABS: Albumin 3.6 g/dL (3.2-5.2); Albumin/Globulin Ratio 0.8 (1-3); BUN/Creatinine Ratio 21.2 (8-20); C Reactive Protein 48.23 mg/L (<8.01); Calcium 9.8 mg/dL (8.6-10.3); EGFR African American 172.7 (>60); EGFR Non-African American 142.7 (>60); Globulin 4.3 g/dL (2-4); Potassium 4.3 mmol/L (3.5-5.0); Total Bilirubin 0.3 mg/dL (0.2-1.0); Total Protein 7.9 g/dL (6.4-8.9)
--- NOTE | 2019-06-21 12:03 | PN ---
Subjective Date of Service: 06/21/19 Interval History: Mr. Humphreys states that he is doing ok today. He denies cough, fever, chills, sweats, rash. He does c/o occasional and intermittent SOB, stating that he feels he cannot catch his breath. He c/o L lateral chest wall pain rated at 5/ 10, He is nervous for chest tube procedure today and is anticipating he will be in pain post-procedure. He has no other complaints today. Family History: Unchanged from Admission Social History: Unchanged from Admission Past Medical History: Unchanged from Admission Objective Active Medications: Acetaminophen (Tylenol Tab*) 975 mg PO TID [facility] Last Admin: 06/21/19 09:21 Dose: 975 mg Clonidine HCl (Catapres Tab*) 0.1 mg PO TID [facility] Last Admin: 06/21/19 09:21 Dose: 0.1 mg Gabapentin (Neurontin Cap(*)) 600 mg PO TID [facility] Last Admin: 06/21/19 09:20 Dose: 600 mg Hydromorphone HCl (Dilaudid Tab*) 4 mg PO Q4H PRN PRN Reason: PAIN - SEVERE Last Admin: 06/21/19 09:19 Dose: 4 mg Vancomycin HCl 1,000 mg/ (Sodium Chloride) 250 mls @ 166.667 mls/hr IVPB Q6H [facility] Lorazepam (Ativan Tab(*)) 0.5 mg PO Q4H PRN PRN Reason: ANXIETY Last Admin: 06/19/19 08:51 Dose: 0.5 mg Nicotine Polacrilex (Nicotine Gum*) 4 mg PO Q2H PRN PRN Reason: CRAVING Last Admin: 06/09/19 13:53 Dose: 4 mg Ondansetron HCl (Zofran Inj*) 4 mg IV Q4H PRN PRN Reason: NAUSEA/VOMITING Last Admin: 06/13/19 13:06 Dose: 4 mg Pharmacy Consult (Vancomycin Per Pharmacy*) 1 note FOLLOW UP .VANC PER PHARMACY [facility]; Protocol Pharmacy Profile Note (Vancomycin Trough Check) 1 note FOLLOW UP 1030 ONE Stop: 06/22/19 10:31 Vital Signs: Temp Pulse Resp BP Pulse Ox 98.2 F 67 16 129/74 99 06/21/19 07:35 06/21/19 07:35 06/21/19 11:30 06/21/19 07:35 06/21/19 08:00 Oxygen Devices in Use Now: None Appearance: Mr. Humphreys is a young white male who is sleeping when I enter. He wakes easily and is appropriate. He appears to be in no acute distress. Eyes: No Scleral Icterus, PERRLA Ears/Nose/Mouth/Throat: NL Teeth, Lips, Gums, Clear Oropharnyx, Mucous Membranes Moist Neck: NL Appearance and Movements; NL JVP, Trachea Midline Respiratory: Symmetrical Chest Expansion and Respiratory Effort, Clear to Auscultation - mildly diminished LLL Cardiovascular: NL Sounds; No Murmurs; No JVD, RRR, No Edema Abdominal: NL Sounds; No Tenderness; No Distention, No Hepatosplenomegaly Skin: - - multiple small circular scars on b/l UE; no aparent rashes Neurological: Alert and Oriented x 3 Result Diagrams: 06/21/19 09:25 06/21/19 09:25 Microbiology and Other Data: Microbiology 06/07/19 10:37 Gram Stain - Final Joint Fluid(Synovial) - Shoulder Right Skin and Soft Tissue MRSA/MSSA (PCR - Final Mrsa Negative S.aureus Negative 06/06/19 19:51 Aerobic Blood Culture - Preliminary Blood Venous Anaerobic Blood Culture - Preliminary Blood MRSA/MSSA (PCR) - Final Mrsa Positive S.aureus Positive 06/06/19 19:51 Aerobic Blood Culture - Preliminary Blood Venous Anaerobic Blood Culture - Preliminary 06/07/19 04:21 Legionella Urinary Antigen - Final Urine Negative Legionella Antigen 06/07/19 04:21 Streptococcus pneumoniae Ag Screen - Final Urine Negative S. pneumo Antigen Assess/Plan/Problems-Billing Assessment: Mr. Humphreys is a 28 yo M with PMH of HCV, substance abuse; who presented with MRSA bacteremia noted on BC from [facility], bilat LL pneumonia with abscesses. - Patient Problems (1) Bilateral pneumonia Comment: - Bilat pneumonia with cavitary masses noted on imaging from [facility] - Negative urine antigen for S. pneumo, Legionella - Sputum culture growing MRSA - WALKER negative for vegetation; still high suspicion for endocarditis - CT showing large left pleural effusion, not loculated - Appreciate ID consult - Continue vanco (day 15); will continue pending decision regarding chest tube and recommendation per ID - Thoracentesis 06/18 revealed multiloculated, complex pleural effusion, MRSA positive; pulm recommends chest tube - US chest unchanged pleural effusion - Pt agreeable to chest tube under anaesthesia; plan for NPO after midnight and CT placement today - Dornase, alteplase BID x2d - Diluadid increased to 6mg PO q4h prn severe pain (2) Bacteremia Comment: - MRSA positive bacteremia - Repeat BC without growth - WALKER without vegetation - Appreciate ID consult - Continue vanco (day 15); may need longer course of abx (3) IV drug abuse Comment: - Last used 06/06 - SW involved; patient refuses inpatient rehab - Willing to start Suboxone prior to d/c - Continue gabapentin, lorazepam, clonidine (4) HCV (hepatitis C virus) Comment: - Without previous treatment - Patient states that last time it was checked, viral count was low (5) DVT prophylaxis Comment: -SCDs (6) Full code status Comment: Status and Disposition: Inpatient. Anticipate d/c home when medically stable and abx course is finished.
[2019-06-21] MEDS ORDERED: Famotidine IV* 10 MG/ML 2 ML (20 mg) IV ONE (12:37)
[2019-06-21] MEDS ORDERED: Lidocaine 1% INJ* 10 MG/ML 30 ML SDV ONE (12:44)
[2019-06-21] MEDS ORDERED: Lactated Ringers 1000 ML Bag* 1,000 ML IV SCH (13:00)
--- NOTE | 2019-06-21 13:04 | PN ---
Progress Note - Progress Note Date of Service: 06/21/19 - Pulm f/u note Note: Pt seen and examined at bedside. Pt scheduled to have chest tube placement under anesthesia. Active Medications Generic Name Dose Route Start Last Admin Trade Name Freq PRN Reason Stop Dose Admin Acetaminophen 975 mg 06/07/19 09:00 06/21/19 09:21 Tylenol Tab* PO 975 mg TID ALEX Administration Clonidine HCl 0.1 mg 06/10/19 14:00 06/21/19 09:21 Catapres Tab* PO 0.1 mg TID ALEX Administration Famotidine 20 mg 06/21/19 12:37 Pepcid Iv* IV 06/21/19 12:38 ONCE ONE Gabapentin 600 mg 06/10/19 14:00 06/21/19 09:20 Neurontin Cap(*) PO 600 mg TID ALEX Administration Hydromorphone HCl 4 mg 06/19/19 00:01 06/21/19 09:19 Dilaudid Tab* PO 4 mg Q4H PRN Administration PAIN - SEVERE Vancomycin HCl 1,000 mg/ 250 mls @ 166.667 mls/hr 06/21/19 16:30 Sodium Chloride IVPB Q6H [facility] Lactated Ringer's 1,000 mls @ 125 mls/hr 06/21/19 13:00 Lactated Ringers 1000 Ml Bag* IV PER RATE [facility] Lorazepam 0.5 mg 06/16/19 10:11 06/19/19 08:51 Ativan Tab(*) PO 0.5 mg Q4H PRN Administration ANXIETY Nicotine Polacrilex 4 mg 06/06/19 23:11 06/09/19 13:53 Nicotine Gum* PO 4 mg Q2H PRN Administration CRAVING Ondansetron HCl 4 mg 06/06/19 23:21 06/13/19 13:06 Zofran Inj* IV 4 mg Q4H PRN Administration NAUSEA/VOMITING Pharmacy Consult 1 note 06/06/19 23:45 Vancomycin Per Pharmacy* FOLLOW UP .VANC PER PHARMACY [facility] Protocol Pharmacy Profile Note 1 note 06/22/19 10:30 Vancomycin Trough Check FOLLOW UP 06/22/19 10:31 1030 ONE Vital Signs Temp Pulse Resp BP Pulse Ox 98.2 F 67 16 129/74 99 06/21/19 07:35 06/21/19 07:35 06/21/19 11:30 06/21/19 07:35 06/21/19 08:00 O/E: Pt in NAD HEENT: PERRLA Lungs: Dimnished at lt base CVS: S1, S2+ Abd: Soft, BS+ Ext: Normal ROM Neuro: NO focal deficits Laboratory Results - last 24 hr 06/21/19 06/21/19 06/21/19 09:25 09:25 09:25 WBC 5.3 RBC 4.18 Hgb 12.0 L Hct 34 L MCV 82 MCH 29 MCHC 35 RDW 13 Plt Count 383 MPV 7.0 L Neut % (Auto) 57.9 Lymph % (Auto) 23.8 [place] % (Auto) 11.5 Eos % (Auto) 3.9 Baso % (Auto) 2.9 Absolute Neuts (auto) 3.1 Absolute Lymphs (auto) 1.3 Absolute Monos (auto) 0.6 Absolute Eos (auto) 0.2 Absolute Basos (auto) 0.2 Absolute Nucleated RBC 0.0 Nucleated RBC % 0.1 Sodium 135 Potassium 4.3 Chloride 98 L Carbon Dioxide 30 Anion Gap 7 BUN 14 Creatinine 0.66 L Est GFR ( Amer) 172.7 Est GFR (Non-Af Amer) 142.7 BUN/Creatinine Ratio 21.2 H Glucose 96 Calcium 9.8 Total Bilirubin 0.30 AST 20 ALT 36 Alkaline Phosphatase 54 C-Reactive Protein 48.23 H Total Protein 7.9 Albumin 3.6 Globulin 4.3 H Albumin/Globulin Ratio 0.8 L Vancomycin Trough 11.1 I/R: 28 y o with IV drug abuse admnitted with MRSA bacteremia, found to have MRSA PNA and complex pleural fluid MRSA positive from pleural fluid. Pl space looking complex on U/S. Pt scheduled for chest tube placement Will need dornase/tPA through the tube c/w abx
[2019-06-21] MEDS ORDERED: Midazolam* 1 MG/ML 5 ML VIAL (5 MG) ONE (13:16)
[2019-06-21] MEDS ORDERED: Ketorolac INJ* 30 MG/ML 1 ML VIAL ONE (13:36)
[2019-06-21] MEDS ORDERED: Ondansetron INJ* 2 MG/ML VIAL ONE (13:36)
[2019-06-21] MEDS ORDERED: Lidocaine 2% PF * 5 ML VIAL ONE (13:36)
[2019-06-21] MEDS ORDERED: Propofol* 10 MG/ML 20 ML BTL ONE (13:36)
[2019-06-21] MEDS ORDERED: HYDROmorphone INJ1* 1 MG/ML SYRINGE ONE (13:37)
--- NOTE | 2019-06-21 14:27 | BRIEFOPN ---
Brief Operative/Procedure Note - Operation Details Pre-Op Diagnosis: Loculated L pleural effusion Post-Op Diagnosis: Same Procedures: Placement of L chest tube Surgeon(s)/Proceduralists: Jazmine Dickson MD Anesthesia: Moderate sedation Estimated Blood Loss: Minimal Findings: Serosanguinous fluid, approx 300ml after placement. 28 Fr chest tube Specimen(s)/Culture(s) Description: Pleural fluid Complications: None
--- NOTE | 2019-06-21 14:38 | PN ---
Progress Note - Progress Note Date of Service: 06/21/19 SOAP: Subjective: CC: Loculated pleural effusion HPI: Mr. Humphreys is a 28 yo male with PMH significant for IV drug use, and hepatitis C; transferred from [facility] for bacteremia, PNA, and lung abscess. Denies fever, chills, nausea, vomiting, diarrhea, joint pain, back pain, or ABD pain. Reports discomfort in the left side after the chest tube was placed. He feels like his breathing is improved, post chest tube insertion. Objective: Vital Signs 06/21/19 06/21/19 06/21/19 14:15 14:23 14:30 Temperature 97.9 F Pulse Rate 65 56 Respiratory 16 16 Rate Blood Pressure 119/70 118/74 (mmHg) O2 Sat by Pulse 97 93 Oximetry Physical Exam: General: NAD, laying in bed Neurological: Alert and Oriented HEENT: Moist MM Cardiovascular: Heart rate regular Respiratory: Lung sounds clear bilateral, diminished sounds in the left lower lobe Abdominal: Bowel sounds present; ABD soft, non tender and non distended MSK: Moves all extremities Skin: No rash Laboratory Results - last 24 hr 06/21/19 06/21/19 06/21/19 09:25 09:25 09:25 WBC 5.3 RBC 4.18 Hgb 12.0 L Hct 34 L MCV 82 MCH 29 MCHC 35 RDW 13 Plt Count 383 MPV 7.0 L Neut % (Auto) 57.9 Lymph % (Auto) 23.8 [place] % (Auto) 11.5 Eos % (Auto) 3.9 Baso % (Auto) 2.9 Absolute Neuts (auto) 3.1 Absolute Lymphs (auto) 1.3 Absolute Monos (auto) 0.6 Absolute Eos (auto) 0.2 Absolute Basos (auto) 0.2 Absolute Nucleated RBC 0.0 Nucleated RBC % 0.1 Sodium 135 Potassium 4.3 Chloride 98 L Carbon Dioxide 30 Anion Gap 7 BUN 14 Creatinine 0.66 L Est GFR ( Amer) 172.7 Est GFR (Non-Af Amer) 142.7 BUN/Creatinine Ratio 21.2 H Glucose 96 Calcium 9.8 Total Bilirubin 0.30 AST 20 ALT 36 Alkaline Phosphatase 54 C-Reactive Protein 48.23 H Total Protein 7.9 Albumin 3.6 Globulin 4.3 H Albumin/Globulin Ratio 0.8 L Vancomycin Trough 11.1 Microbiology 02/03/20 14:00 Gram Stain - Final Pleural Fluid Body Fluid Culture - Preliminary No Growth Day 3 Skin and Soft Tissue MRSA/MSSA (PCR - Final Mrsa Positive S.aureus Positive 06/07/19 10:37 Fungal Culture - Preliminary Misc Source (See Comment) - Shoulder Right No Growth Week 1 06/09/19 13:42 Aerobic Blood Culture - Final No Source Provided No Growth Day 5 Anaerobic Blood Culture - Final No Growth Day 5 06/08/19 16:15 Aerobic Blood Culture - Final No Source Provided MRSA Anaerobic Blood Culture - Final No Growth Day 5 Blood MRSA/MSSA (PCR) - Final Mrsa Positive S.aureus Positive 06/08/19 16:15 Aerobic Blood Culture - Final No Source Provided No Growth Day 5 Anaerobic Blood Culture - Final Staphylococcus Epidermidis Blood MRSA/MSSA (PCR) - Final Mrsa Negative S.aureus Negative 06/07/19 15:42 Gram Stain - Final Sputum Expectorated Sputum Culture - Final MRSA Normal Keisha 06/07/19 10:37 Gram Stain - Final Joint Fluid(Synovial) - Shoulder Right Body Fluid Culture - Final No Growth Day 4 Skin and Soft Tissue MRSA/MSSA (PCR - Final Mrsa Negative S.aureus Negative 06/07/19 10:37 Anaerobic Culture - Final Body Fluid - Shoulder Right No Growth Day 4 06/06/19 19:51 Aerobic Blood Culture - Final Blood Venous MRSA Anaerobic Blood Culture - Final MRSA Blood MRSA/MSSA (PCR) - Final Mrsa Positive S.aureus Positive 06/06/19 19:51 Aerobic Blood Culture - Final Blood Venous MRSA Anaerobic Blood Culture - Final MRSA 06/07/19 04:21 Legionella Urinary Antigen - Final Urine Negative Legionella Antigen 06/07/19 04:21 Streptococcus pneumoniae Ag Screen - Final Urine Negative S. pneumo Antigen Assessment: 1. Bilateral PNA with lung abscesses and complex parapneumonic effusion on the left. Urine antigens negative for S. Pneumo and legionella. Sputum culture with MRSA. Afebrile and no leukocytosis. Repeat chest xray with progression of left pleural effusion and left basilar atelectasis vs consolidation. Chest Ct with 1.5 cm irregular nodule of the right middle lobe and left pleural effusion. Fluid from thoracentesis PCR + for MRSA and culture negative. S/P chest tube placement today. 2. MRSA bacteremia. WALKER with no signs of vegetation, initially high suspicion for endocarditis in the setting of IV drug use. Repeat blood cultures from 06/09 with no growth. 3. Hepatitis C. Has not received treatment in the past. HIV negative. Plan: Continue vancomycin, trough goal 15-20; day 15 of ABX. He should have weekly labs while on IV ABX: CBC, CMP, CRP, and vanco trough.
--- NOTE | 2019-06-21 14:41 | OP ---
Operative Report - Blank - Operative Report Date of Operation: 06/21/19 Note: PRE-OP DX: Left pleural effusion POST-OP DX: Same PROCEDURE: Placement of left 28 Fr chest tube SURGEON: Jazmine Dickson MD ANESTHESIA: Moderate sedation, local EBL: Minimal FINDINGS: Drainage of serosanguinous fluid, approximately 300 ml post- procedure. DRAINS: 28 Fr chest tube INDICATION: Lewis Humphreys is a 28 year-old man with a history of IV drug abuse who was admitted with MRSA bacteremia and bilateral lower lobe pneumonia. He developed a left pleural effusion. Thoracentesis was attempted but there was minimal drainage. Surgery was consulted for chest tube placement for complex effusion. The patient initially refused the procedure but agreed yesterday to proceed. Risks were discussed including but not limited to bleeding, lung injury, or pain. Written consent was obtained from the patient. DESCRIPTION: The patient was placed in the supine position on the OR table. The patient was warmed. Moderate sedation was administered. The left lateral chest was prepped and draped in the usual sterile fashion. A time out confirming the patient's name, date of , and procedure was called. Lidocaine 1% was injected into the skin. A transverse incision was made over the fourth intercostal space at the anterior axillary line. The subcutaneous tissue was bluntly dissected away down to the pleura. The chest cavity was bluntly entered with a Margie clamp. There was return of serosanguinous fluid. Cultures of the fluid were sent to microbiology. A 28 Fr chest tube was placed through the incision into the chest. The chest tube was connected to the Pleura- Evac and placed to -20 mm Hg suction. The incision was closed with interrupted 2 -0 Vicryl in the dermis. An 0 silk suture was used to secure the chest tube. Sterile dressings were placed over the tube and secured with foam tape. There was approximately 300 ml of fluid after the procedure. The patient was brought to recovery in stable condition. CXR in recovery showed chest tube in correct position with improvement in pleural effusion.
[2019-06-21] MEDS ORDERED: Ibuprofen TAB* 600 MG PO PRN ×2 (15:06→21:27)
[2019-06-21] MEDS ORDERED: HYDROmorphone TAB* 4 MG PO PRN (15:08)
[2019-06-21] MEDS ORDERED: HYDROmorphone TAB* 2 MG PO PRN (16:00)
[2019-06-21] MEDS: Vancomycin(*) 1,000 MG in NS 0.9% 250 ML* 250 ML IVPB SCH ×2 (16:20→23:25)
[2019-06-21] MEDS ORDERED: Ketorolac INJ* 30 MG/ML 1 ML VIAL IV PUSH ONE (18:14)
[2019-06-21] MEDS: DORNASE ALFA 1 mg/ml(NF) 5 MG in NS 0.9% 50 ML INTRAPLEUR SCH (18:38)
[2019-06-21] MEDS: Alteplase (CATHFLO)* 10 MG in NS 0.9% 50 ML* 40 ML INTRAPLEUR SCH (18:39)
[2019-06-21] MEDS: HYDROmorphone TAB* 2 MG PO PRN ×2 (18:50→23:25)
[2019-06-21] MEDS: HYDROmorphone INJ1* 1 MG/ML SYRINGE IV PRN (19:52)
[2019-06-22] MEDS: HYDROmorphone INJ1* 1 MG/ML SYRINGE IV PRN ×3 (00:56→11:48)
[2019-06-22] MEDS: DORNASE ALFA 1 mg/ml(NF) 5 MG in NS 0.9% 50 ML INTRAPLEUR SCH ×2 (02:08→10:18)
[2019-06-22] MEDS: Alteplase (CATHFLO)* 10 MG in NS 0.9% 50 ML* 40 ML INTRAPLEUR SCH ×2 (02:08→10:18)
[2019-06-22] MEDS ORDERED: cloNIDine TAB* 0.1 MG PO ONE (03:00)
[2019-06-22] MEDS ORDERED: HYDROmorphone INJ1* 1 MG/ML SYRINGE IV ONE (03:17)
[2019-06-22] MEDS ORDERED: LORazepam INJ* 2 MG/ML 1 ML VIAL IV PUSH ONE (03:18)
[2019-06-22] MEDS ORDERED: Lorazepam PYXIS KEY PRN (03:18)
[2019-06-22] MEDS ORDERED: Lorazepam PYXIS KEY ONE (03:19)
[2019-06-22] MEDS ORDERED: LORazepam INJ* 2 MG/ML 1 ML VIAL ONE (03:20)
[2019-06-22] MEDS: Vancomycin(*) 1,000 MG in NS 0.9% 250 ML* 250 ML IVPB SCH ×4 (05:22→23:53)
[2019-06-22] MEDS: HYDROmorphone TAB* 2 MG PO PRN ×3 (05:22→13:51)
[2019-06-22] MEDS: LORazepam TAB(*) 0.5 MG PO PRN ×3 (06:33→22:06)
[2019-06-22] MEDS: cloNIDine TAB* 0.1 MG PO SCH ×3 (09:09→21:57)
[2019-06-22] MEDS: Acetaminophen TAB* 325 MG PO SCH ×3 (09:09→21:58)
[2019-06-22] MEDS: Gabapentin CAP(*) 300 MG PO SCH ×3 (09:10→21:56)
[2019-06-22] MEDS ORDERED: Vancomycin Trough Check NOTE FOLLOW UP ONE (10:30)
--- NOTE | 2019-06-22 10:54 | PN ---
Progress Note - Progress Note Date of Service: 06/22/19 Note: Difficulty with pain control. Patient has threatened to pull tube out on his own. Chest tube was left to water seal overnight. This morning he is lethargic. He wakes up intermittently on his own. He denied any issues besides the chest tube. He denies abdominal pain or SOB. He is tolerating regular diet. CXR post-procedure showed near resolution of the effusion. Vital Signs - 12 hr Temp Pulse Resp BP Pulse Ox 06/22/19 10:19 16 99 06/22/19 09:15 20 06/22/19 09:14 20 06/22/19 09:10 20 06/22/19 09:09 20 06/22/19 07:55 98.0 F 70 15 120/71 99 06/22/19 06:33 20 06/22/19 05:22 16 06/22/19 05:19 14 06/22/19 04:38 98 06/22/19 04:25 14 06/22/19 03:24 24 06/22/19 03:23 24 06/22/19 02:57 97.0 F 72 24 131/68 97 06/22/19 02:00 18 06/22/19 01:25 18 06/22/19 00:56 20 06/22/19 00:00 100 06/21/19 23:37 97.5 F 60 18 127/62 100 06/21/19 23:25 20 NAD, lethargic. Answered questions appropriately but frequently dozed off while I was speaking with him. No air leak from chest tube. About 100 ml serosanguinous fluid drained since about 1900 yesterday (450 ml total since placement). A&P 28M with L pleural effusion s/p chest tube placement. -Will f/u ultrasound results. If the effusion has resolved, could consider removing the tube. -Chest tube to -20 mmHg suction. -Pain management.
--- NOTE | 2019-06-22 11:16 | PN ---
Progress Note - Progress Note Date of Service: 06/22/19 SOAP: Subjective: CC: Pleural effusion HPI: Mr. Humphreys is a 28 yo male with PMH significant for IV drug use, and hepatitis C; transferred from [facility] for bacteremia, PNA, and lung abscess. Denies fever or chills. Reports discomfort in the left side at the chest tube site. Pt is noted to be lethargic today. Objective: Vital Signs 06/22/19 06/22/19 06/22/19 06:33 07:55 09:09 Temperature 98.0 F Pulse Rate 70 Respiratory 20 15 20 Rate Blood Pressure 120/71 (mmHg) O2 Sat by Pulse 99 Oximetry Physical Exam: General: NAD, laying in bed Neurological: Lethargic and oriented. Responds to voice HEENT: Moist MM Cardiovascular: Heart rate regular Respiratory: Lung sounds clear, diminished left base Abdominal: Bowel sounds present; ABD soft, non tender and non distended Skin: No rash. Chest tube site to left chest benign Laboratory Tests 06/21/19 06/21/19 09:25 09:25 WBC 5.3 Hgb 12.0 L Hct 34 L Plt Count 383 Sodium 135 Potassium 4.3 Chloride 98 L Carbon Dioxide 30 BUN 14 Creatinine 0.66 L Glucose 96 C-Reactive Protein 48.23 H Microbiology 06/18/19 14:00 Gram Stain - Final Pleural Fluid Body Fluid Culture - Final No Growth Day 4 Skin and Soft Tissue MRSA/MSSA (PCR - Final Mrsa Positive S.aureus Positive 06/21/19 13:53 Gram Stain - Final Chest 06/07/19 10:37 Fungal Culture - Preliminary Misc Source (See Comment) - Shoulder Right No Growth Week 1 06/09/19 13:42 Aerobic Blood Culture - Final No Source Provided No Growth Day 5 Anaerobic Blood Culture - Final No Growth Day 5 06/08/19 16:15 Aerobic Blood Culture - Final No Source Provided MRSA Anaerobic Blood Culture - Final No Growth Day 5 Blood MRSA/MSSA (PCR) - Final Mrsa Positive S.aureus Positive 06/08/19 16:15 Aerobic Blood Culture - Final No Source Provided No Growth Day 5 Anaerobic Blood Culture - Final Staphylococcus Epidermidis Blood MRSA/MSSA (PCR) - Final Mrsa Negative S.aureus Negative 06/07/19 15:42 Gram Stain - Final Sputum Expectorated Sputum Culture - Final MRSA Normal Keisha 06/07/19 10:37 Gram Stain - Final Joint Fluid(Synovial) - Shoulder Right Body Fluid Culture - Final No Growth Day 4 Skin and Soft Tissue MRSA/MSSA (PCR - Final Mrsa Negative S.aureus Negative 06/07/19 10:37 Anaerobic Culture - Final Body Fluid - Shoulder Right No Growth Day 4 06/06/19 19:51 Aerobic Blood Culture - Final Blood Venous MRSA Anaerobic Blood Culture - Final MRSA Blood MRSA/MSSA (PCR) - Final Mrsa Positive S.aureus Positive 06/06/19 19:51 Aerobic Blood Culture - Final Blood Venous MRSA Anaerobic Blood Culture - Final MRSA 06/07/19 04:21 Legionella Urinary Antigen - Final Urine Negative Legionella Antigen 06/07/19 04:21 Streptococcus pneumoniae Ag Screen - Final Urine Negative S. pneumo Antigen Assessment: 1. Bilateral PNA with lung abscesses and parapneumonic effusion on the left. Urine antigens negative for S. Pneumo and legionella. Sputum culture with MRSA. Afebrile and no leukocytosis. Repeat chest xray with progression of left pleural effusion and left basilar atelectasis vs consolidation. Chest CT with 1.5 cm irregular nodule of the right middle lobe and left pleural effusion. Fluid from thoracentesis PCR + for MRSA and culture negative. Chest tube placement yesterday and has had about 450 ml bloody drainage total. Gram stain from chest tube placement with 4+ neutrophils and no organisms. Afebrile and no leukocytosis. CRP trending down. 2. MRSA bacteremia. Repeat blood cultures from 06/09 with no growth. 3. Hepatitis C. Has not received treatment in the past. HIV negative. Plan: Continue vancomycin, trough goal 15-20; day 16 of ABX. He should have weekly labs while on IV ABX: CBC, CMP, CRP, and vanco trough. If he goes home over the weekend, he should be discharged on Bactrim DS 1 tablet PO BID for 3 weeks. Followup with ID outpatient. He will need followup chest imaging.
--- NOTE | 2019-06-22 14:21 | PN ---
Progress Note - Progress Note Date of Service: 06/22/19 - Pulm f/u note Note: Pt seen and examined at bedside. Pt is drowy. Has been c/o pain through chest tube site last night, was receiving Dilaudid. Active Medications Generic Name Dose Route Start Last Admin Trade Name Freq PRN Reason Stop Dose Admin Acetaminophen 975 mg 06/07/19 09:00 06/22/19 09:09 Tylenol Tab* PO 975 mg TID ALEX Administration Clonidine HCl 0.1 mg 06/10/19 14:00 06/22/19 09:09 Catapres Tab* PO 0.1 mg TID ALEX Administration Gabapentin 600 mg 06/10/19 14:00 06/22/19 09:10 Neurontin Cap(*) PO 600 mg TID ALEX Administration Hydromorphone HCl 8 mg 06/21/19 18:30 06/22/19 13:51 Dilaudid Tab* PO 8 mg Q4H PRN Administration PAIN - SEVERE Hydromorphone HCl 1 mg 06/21/19 19:40 06/22/19 11:48 Dilaudid Inj1s* IV 06/23/19 19:39 1 mg Q4H PRN Administration PAIN - SEVERE Vancomycin HCl 1,000 mg/ 250 mls @ 166.667 mls/hr 06/21/19 16:30 06/22/19 11: 48 Sodium Chloride IVPB 166.667 mls/hr Q6H ALEX Administration Ibuprofen 600 mg 06/21/19 21:27 06/22/19 00:57 Motrin Tab* PO 06/26/19 21:26 600 mg Q6H PRN Administration PAIN - MILD Lorazepam 0.5 mg 06/16/19 10:11 06/22/19 11:49 Ativan Tab(*) PO 0.5 mg Q4H PRN Administration ANXIETY Miscellaneous 1 ea 06/22/19 03:18 Ativan Pyxis [place] N/A .ATIVAN IV R[place]MOND PRN PYXIS RICHMOND Nicotine Polacrilex 4 mg 06/06/19 23:11 06/09/19 13:53 Nicotine Gum* PO 4 mg Q2H PRN Administration CRAVING Ondansetron HCl 4 mg 06/06/19 23:21 06/13/19 13:06 Zofran Inj* IV 4 mg Q4H PRN Administration NAUSEA/VOMITING Pharmacy Consult 1 note 06/06/19 23:45 Vancomycin Per Pharmacy* FOLLOW UP .VANC PER PHARMACY ALEX Protocol Pharmacy Profile Note 1 note 06/24/19 10:00 Vancomycin Trough Check FOLLOW UP 06/24/19 10:01 ONCE ONE Vital Signs Temp Pulse Resp BP Pulse Ox 98.3 F 63 16 126/70 98 06/22/19 11:34 06/22/19 11:34 06/22/19 13:51 06/22/19 11:34 06/22/19 11:34 O/E: Pt in NAD, drowsy HEENT: PERRLA Lungs:Improved breath sounds at lt base, chest tube in place CVS: S1, S2+ Abd: Soft, BS+ Ext: Normal ROM Neuro: NO focal deficits Laboratory Results - last 24 hr 06/22/19 10:36 Vancomycin Trough 15.4 I/R: 28 y o with IV drug abuse admnitted with MRSA bacteremia, found to have MRSA PNA and complex pleural fluid MRSA positive from pleural fluid. Pl space looking complex on U/S. Pt underwent chest tube placement, had 450cc through the tube No significant drainage this am Had U/S- reviewed images, small amount of fluid present Possible removal of fluid if no significant drainage c/w abx
--- NOTE | 2019-06-22 14:36 | PN ---
Subjective Date of Service: 06/22/19 Interval History: Mr. Humphreys was found with a needle in bed overnight. He states that he found this in his pocket, but insists he has not been using any illicit drugs since prior to admission. Precautions will be taken in the form of continued visitor searches and the patient must keep his door open at all times. Mr. Humphreys complains of excruciating pain in the L chest wall with CT in place. He is requesting that the tube be removed and is threatening to remove it himself. Family History: Unchanged from Admission Social History: Unchanged from Admission Past Medical History: Unchanged from Admission Objective Active Medications: Acetaminophen (Tylenol Tab*) 975 mg PO TID [facility] Last Admin: 06/22/19 09:09 Dose: 975 mg Clonidine HCl (Catapres Tab*) 0.1 mg PO TID [facility] Last Admin: 06/22/19 09:09 Dose: 0.1 mg Gabapentin (Neurontin Cap(*)) 600 mg PO TID [facility] Last Admin: 06/22/19 09:10 Dose: 600 mg Hydromorphone HCl (Dilaudid Tab*) 8 mg PO Q4H PRN PRN Reason: PAIN - SEVERE Last Admin: 06/22/19 13:51 Dose: 8 mg Hydromorphone HCl (Dilaudid Inj1s*) 1 mg IV Q4H PRN PRN Reason: PAIN - SEVERE Stop: 06/23/19 19:39 Last Admin: 06/22/19 11:48 Dose: 1 mg Vancomycin HCl 1,000 mg/ (Sodium Chloride) 250 mls @ 166.667 mls/hr IVPB Q6H [facility] Last Admin: 06/22/19 11:48 Dose: 166.667 mls/hr Ibuprofen (Motrin Tab*) 600 mg PO Q6H PRN PRN Reason: PAIN - MILD Stop: 06/26/19 21:26 Last Admin: 06/22/19 00:57 Dose: 600 mg Lorazepam (Ativan Tab(*)) 0.5 mg PO Q4H PRN PRN Reason: ANXIETY Last Admin: 06/22/19 11:49 Dose: 0.5 mg Miscellaneous (Ativan Pyxis [place]) 1 ea N/A .ATIVAN IV [place] PRN PRN Reason: PYXIS R[place]MON[place] Nicotine Polacrilex (Nicotine Gum*) 4 mg PO Q2H PRN PRN Reason: CRAVING Last Admin: 06/09/19 13:53 Dose: 4 mg Ondansetron HCl (Zofran Inj*) 4 mg IV Q4H PRN PRN Reason: NAUSEA/VOMITING Last Admin: 06/13/19 13:06 Dose: 4 mg Pharmacy Consult (Vancomycin Per Pharmacy*) 1 note FOLLOW UP .VANC PER PHARMACY ALEX; Protocol Pharmacy Profile Note (Vancomycin Trough Check) 1 note FOLLOW UP ONCE ONE Stop: 06/24/19 10:01 Vital Signs: Temp Pulse Resp BP Pulse Ox 98.3 F 63 16 126/70 98 06/22/19 11:34 06/22/19 11:34 06/22/19 13:51 06/22/19 11:34 06/22/19 11:34 Oxygen Devices in Use Now: Nasal Cannula Appearance: Mr. Humphreys is laying in bed when I enter, he appears to be asleep. He wakes easily and startes to moan and grimace. Eyes: No Scleral Icterus, PERRLA Ears/Nose/Mouth/Throat: NL Teeth, Lips, Gums, Clear Oropharnyx, Mucous Membranes Moist Neck: NL Appearance and Movements; NL JVP, Trachea Midline Respiratory: Symmetrical Chest Expansion and Respiratory Effort, Clear to Auscultation Cardiovascular: NL Sounds; No Murmurs; No JVD, RRR, No Edema Extremities: No Edema, No Clubbing, Cyanosis Neurological: Alert and Oriented x 3 Result Diagrams: 06/21/19 09:25 06/21/19 09:25 Microbiology and Other Data: Microbiology 06/07/19 10:37 Gram Stain - Final Joint Fluid(Synovial) - Shoulder Right Skin and Soft Tissue MRSA/MSSA (PCR - Final Mrsa Negative S.aureus Negative 06/06/19 19:51 Aerobic Blood Culture - Preliminary Blood Venous Anaerobic Blood Culture - Preliminary Blood MRSA/MSSA (PCR) - Final Mrsa Positive S.aureus Positive 06/06/19 19:51 Aerobic Blood Culture - Preliminary Blood Venous Anaerobic Blood Culture - Preliminary 06/07/19 04:21 Legionella Urinary Antigen - Final Urine Negative Legionella Antigen 06/07/19 04:21 Streptococcus pneumoniae Ag Screen - Final Urine Negative S. pneumo Antigen Assess/Plan/Problems-Billing Assessment: Mr. Humphreys is a 28 yo M with PMH of HCV, substance abuse; who presented with MRSA bacteremia noted on BC from [place], bilat LL pneumonia with abscesses. - Patient Problems (1) Bilateral pneumonia Comment: - Bilat pneumonia with cavitary masses noted on imaging from [place] - Negative urine antigen for S. pneumo, Legionella - Sputum culture growing MRSA - WALKER negative for vegetation; still high suspicion for endocarditis - Appreciate ID consult - Continue vanco (day 16) - CT showing large left pleural effusion, not loculated; thoracentesis 06/18 revealed multiloculated, complex pleural effusion, MRSA positive; pulm recommends chest tube - US chest: unchanged pleural effusion - Chest tube placed 06/21, with plan for removal today, as patient is unable to tolerate pain - Diluadid to 4mg q4h with plans to decrease tomorrow to 2mg q4h and wean off (2) Bacteremia Comment: - MRSA positive bacteremia - Repeat BC without growth - WALKER without vegetation - Appreciate ID consult - Continue vanco (day 16) - ID has made recommendations for outpatient treatment, as the patient is frequently threatening to leave AMA (3) IV drug abuse Comment: - Last used 06/06 - SW involved; patient refuses inpatient rehab - Willing to start Suboxone prior to d/c; meanwhile, continue gabapentin, lorazepam, clonidine - there is some concern that the patient may have been using, as a needle was found in his bedding; patient denies use; continue visitor searches and leave door open (4) HCV (hepatitis C virus) Comment: - Without previous treatment - Patient states that last time it was checked, viral count was low (5) DVT prophylaxis Comment: -SCDs (6) Full code status Comment: Status and Disposition: Inpatient. Anticipate d/c home when medically stable and abx course is finished.
--- NOTE | 2019-06-22 16:38 | PN ---
Hospitalist Progress Note Date of Service: 06/22/19 Addiction Medicine/[facility] consult: S: Lewis Humphreys is a 28 yo male, transferred from [facility] with concern for bilateral pneumonia with cavitary lesions and bacteremia. I was made aware of the patient by the hospitalist service, as he is interested in starting Suboxone in the future. Lewis currently endorses quite a bit of pain from his chest tube; at baseline, he has chronic back pain. He reports taking Suboxone in the past with good effect and would be interested in starting this again. He was afraid to start earlier in the admission due to recently having opioids in his system and the amount of pain that he is in. He feels okay with the plan to taper off hydromorphone with a clearly outlined plan. He is concerned about dealing with the withdrawal but can manage it with appropriate support. He is somewhat unsure if he would like to stay or go but recognizes that he is receiving necessary care here. O: 28 yo male, lying in bed, alert, oriented, pleasant --Resp: unlabored --CV: RRR --Psych: somewhat anxious but AOx3, good eye contact A/P: 28 yo male with history of opioid use disorder, here for prolonged patient stay due to bacteremia and PNA with cavitary lesions. --I encouraged him to stay as long as he could and to follow recommendations of care for best outcomes. --Discussed bridging over to Suboxone in the inpatient setting vs the outpatient setting. In either event, Lewis has experience in Suboxone induction. I would defer to his previous experiences and support his induction with management of symptom of withdrawal, which can occur when switching from a full opioid agonist to buprenorphine. --It is recommended that the patient have a COWS score greater than 6 prior to starting Suboxone (which usually occurs 24-36 hours or earlier if pt is comfortable). Initial dose should be 2 mg with careful monitoring following the first dose. Can repeat again in one hour if tolerating and build up to 4 mg and monitor for increase in withdrawal symptoms. If no increase in withdrawal symptoms, he can then build up to his total daily dose (which can be up to a maximum of 24 mg daily). --COWS score should be calculated based on symptoms (resting pulse, sweating, restlessness, pupil size, bone/joint aches, runny nose or tearing, GI upset, tremor, yawning, anxiety/irritability, and gooseflesh skin: see https:// www.mdcalc.com/hxks-ucohk-xcwmge-withdrawal --Supportive care can be given with: 1. Zofran 4-8 mg q4-6 hours prn nausea, 2. gabapentin and/or ropinirole for 2-4 days to address restlessness and agitation 3. lorazepam 0.5 to 1 mg q4h prn for 2-4 days to address anxiety/agitation 4. loperamide 2 mg prn each loose stool (max 16 mg daily) to address gastrointestinal distress. --I have met the patient and agree to assume his Suboxone script as an outpatient, should he choose to continue. We also discussed the [facility] methadone program, but he is interested in Suboxone at this time. --I also gave him the phone and address for [facility]; he is welcome to establish as a primary care patient there if he chooses. Resource: https://www.[facility]am.org/docs/default-source/practice-support/guidelines- snp-rjjrtbpeq-mddg/tnks-vzdnlwld-jtbbvhzx-guideline-pocketguide.pdf?sfvrsn= [email or web address] Please contact me with any further questions or concerns. If the patient desires to establish care at [facility], please fax records to .
[2019-06-22] MEDS: HYDROmorphone TAB* 4 MG PO PRN (21:59)
[2019-06-23] MEDS: HYDROmorphone TAB* 4 MG PO PRN ×5 (04:28→21:23)
[2019-06-23] MEDS: Vancomycin(*) 1,000 MG in NS 0.9% 250 ML* 250 ML IVPB SCH ×3 (04:28→16:25)
[2019-06-23] MEDS: Gabapentin CAP(*) 300 MG PO SCH ×3 (08:27→20:18)
[2019-06-23] MEDS: Acetaminophen TAB* 325 MG PO SCH (08:27)
[2019-06-23] MEDS: cloNIDine TAB* 0.1 MG PO SCH (08:28)
[2019-06-23] MEDS ORDERED: cloNIDine TAB* 0.1 MG PO PRN (08:41)
[2019-06-23] MEDS ORDERED: Loperamide CAP* 2 MG PO PRN (08:43)
[2019-06-23] MEDS: Ketorolac INJ* 30 MG/ML 1 ML VIAL IV PUSH PRN (10:16)
--- NOTE | 2019-06-23 13:16 | PN ---
Subjective Date of Service: 06/23/19 Interval History: Nursing reports that there was social issue last night with patient's girlfriend. She left the hospital and came back inside. Reportedly, afterwards patient went to the bathroom and closed the door and refused to open. Nursing has concern that patient used IV drugs during this time. Girlfriend was asked to leave the hospital overnight and has not yet returned. Patient tells me he has chest pain at site where chest tube was removed. He tells me he plans to go to [facility] when he eventually leaves the hospital. He expresses frustration about needing to leave door open in the bathroom. We discussed the reason is due to concern for IV drug use. He still is not interested in inpatient drug and alcohol rehab. Tells me he still has interest in abstaining from IV heroin with [facility]. C/o symtomatic fevers but denies chills. Denies difficulty breathing, abd pain, nausea, diarrhea. Family History: Unchanged from Admission Social History: Unchanged from Admission Past Medical History: Unchanged from Admission Objective Active Medications: Acetaminophen (Tylenol Tab*) 975 mg PO Q6H PRN PRN Reason: PAIN - MILD Gabapentin (Neurontin Cap(*)) 600 mg PO TID [facility] Last Admin: 06/23/19 08:27 Dose: 600 mg Hydromorphone HCl (Dilaudid Tab*) 2 mg PO Q4H PRN PRN Reason: PAIN - SEVERE Last Admin: 06/23/19 12:34 Dose: 2 mg Vancomycin HCl 1,000 mg/ (Sodium Chloride) 250 mls @ 166.667 mls/hr IVPB Q6H [facility] Last Admin: 06/23/19 10:00 Dose: 166.667 mls/hr Ketorolac Tromethamine (Toradol Inj*) 30 mg IV PUSH Q6H PRN PRN Reason: PAIN - MODERATE Last Admin: 06/23/19 10:16 Dose: 30 mg Loperamide HCl (Imodium Cap*) 2 mg PO .SEE DIRECTIONS PRN PRN Reason: DIARRHEA Lorazepam (Ativan Tab(*)) 0.5 mg PO Q4H PRN PRN Reason: Anxiety/agitation Miscellaneous (Ativan Pyxis [place]) 1 ea N/A .ATIVAN IV [place] PRN PRN Reason: PYXIS [place] Nicotine Polacrilex (Nicotine Gum*) 4 mg PO Q2H PRN PRN Reason: CRAVING Last Admin: 06/09/19 13:53 Dose: 4 mg Ondansetron HCl (Zofran Inj*) 4 mg IV Q4H PRN PRN Reason: NAUSEA/VOMITING Last Admin: 06/13/19 13:06 Dose: 4 mg Pharmacy Consult (Vancomycin Per Pharmacy*) 1 note FOLLOW UP .VANC PER PHARMACY ALEX; Protocol Pharmacy Profile Note (Vancomycin Trough Check) 1 note FOLLOW UP ONCE ONE Stop: 06/24/19 10:01 Vital Signs - 8 hr 06/23/19 06/23/19 06/23/19 07:15 08:00 08:27 Temperature Pulse Rate 73 Respiratory 17 16 16 Rate Blood Pressure 128/66 (mmHg) O2 Sat by Pulse 98 98 Oximetry 06/23/19 06/23/19 06/23/19 08:28 08:46 10:31 Temperature Pulse Rate Respiratory 16 16 16 Rate Blood Pressure (mmHg) O2 Sat by Pulse Oximetry 06/23/19 06/23/19 11:15 12:34 Temperature 97.3 F Pulse Rate 64 Respiratory 16 16 Rate Blood Pressure 105/49 (mmHg) O2 Sat by Pulse 98 Oximetry Oxygen Devices in Use Now: None Appearance: WD WN young white male, laying in bed, appearing comfortable and in NAD Eyes: No Scleral Icterus, - - PERRL Ears/Nose/Mouth/Throat: Mucous Membranes Moist Neck: Trachea Midline Respiratory: Symmetrical Chest Expansion and Respiratory Effort, Clear to Auscultation Cardiovascular: NL Sounds; No Murmurs; No JVD, RRR Abdominal: - - abd soft, nontender, nondistended Extremities: No Edema, No Clubbing, Cyanosis Skin: No Rash or Ulcers Neurological: Alert and Oriented x 3 Result Diagrams: 06/21/19 09:25 06/21/19 09:25 Microbiology and Other Data: Microbiology 06/07/19 10:37 Gram Stain - Final Joint Fluid(Synovial) - Shoulder Right Skin and Soft Tissue MRSA/MSSA (PCR - Final Mrsa Negative S.aureus Negative 06/06/19 19:51 Aerobic Blood Culture - Preliminary Blood Venous Anaerobic Blood Culture - Preliminary Blood MRSA/MSSA (PCR) - Final Mrsa Positive S.aureus Positive 06/06/19 19:51 Aerobic Blood Culture - Preliminary Blood Venous Anaerobic Blood Culture - Preliminary 06/07/19 04:21 Legionella Urinary Antigen - Final Urine Negative Legionella Antigen 06/07/19 04:21 Streptococcus pneumoniae Ag Screen - Final Urine Negative S. pneumo Antigen Assess/Plan/Problems-Billing Assessment: Mr. Humphreys is a 28 yo M with PMH of HCV, substance abuse; who presented with MRSA bacteremia noted on BC from [place], bilat LL pneumonia with abscesses. Previously with high concern for endocarditis due to concern for possibly septic joint, though WALKER without vegetations and R shoulder joint aspirate negative. - Patient Problems (1) Bacteremia Current Visit: Yes Status: Acute Code(s): R78.81 - BACTEREMIA SNOMED Code( s): 2454191 Comment: - MRSA positive bacteremia - Surveillance BC without growth - WALKER without vegetation - Appreciate ID consult - Continue vanco (day 17, time course to be determined by ID) - ID has made recommendations for outpatient treatment, as the patient is frequently threatening to leave AMA (2) Bilateral pneumonia Current Visit: Yes Status: Acute Code(s): J18.9 - PNEUMONIA, UNSPECIFIED ORGANISM SNOMED Code(s): 149248337 Comment: - Bilat pneumonia with cavitary masses noted on imaging from [place] - Negative urine antigen for S. pneumo, Legionella. Sputum culture growing MRSA - Continue vanco (day 17) - Thoracentesis 06/18 revealed multiloculated, complex pleural effusion indicating likely lung abscess. Pleural fluid culture MRSA positive - Chest tube placed 06/21 and was subsequently removed 06/22 due to patient discomfort and threatening to remove himself. Total of ~450cc drained in 24hrs (3) Lung abscess Current Visit: Yes Status: Acute Code(s): J85.2 - ABSCESS OF LUNG WITHOUT PNEUMONIA SNOMED Code(s): 70771480 Comment: -s/p left chest tube placement and removal 06/21-06/22; approx 450 cc fluid collected; further information above -repeat CXR with interval improvement of fluid collection in left lower lobe (4) IV drug abuse Current Visit: Yes Status: Acute Code(s): F19.10 - OTHER PSYCHOACTIVE SUBSTANCE ABUSE, UNCOMPLICATED SNOMED Code(s): 960675731 Comment: - Last used 06/06 though persistent suspicious behavior in bathroom after girlfriend visits creates for concern for IV drug use while in hospital; additionally a needle was found in his bedding - SW involved; patient refuses inpatient drug and alcohol rehab - Willing to start Suboxone prior to d/c. Meanwhile, decreasing dilaudid and continuing gabapentin, lorazepam, loperamide, and zofran for any withdrawal sxs - continue visitor searches and leave door open - plans to f/u with [facility] outpatient after hospital stay (5) HCV (hepatitis C virus) Current Visit: Yes Status: Acute Comment: - Without previous treatment - Patient states that last time it was checked, viral count was low (6) Tobacco use Current Visit: Yes Status: Acute Code(s): Z72.0 - TOBACCO USE SNOMED Code( s): 146264509 Comment: -continue prn nicotine gum (7) DVT prophylaxis Current Visit: Yes Status: Acute Code(s): Z29.9 - ENCOUNTER FOR PROPHYLACTIC MEASURES, UNSPECIFIED SNOMED Code(s): 840062521 Comment: -SCDs (8) Full code status Current Visit: Yes Status: Acute Code(s): Z78.9 - OTHER SPECIFIED HEALTH STATUS SNOMED Code(s): 160644282 Comment: Status and Disposition: Inpatient. Anticipate d/c home when medically stable and IV abx course is finished. Possibility of swing status prior to home depending on medicaid approval as patient was previously uninsured
[2019-06-23] MEDS ORDERED: Acetaminophen TAB* 325 MG PO PRN (15:00)
[2019-06-24] MEDS: Vancomycin(*) 1,000 MG in NS 0.9% 250 ML* 250 ML IVPB SCH ×3 (01:24→10:43)
[2019-06-24] MEDS: HYDROmorphone TAB* 4 MG PO PRN ×2 (01:46→05:50)
[2019-06-24] MEDS: LORazepam TAB(*) 0.5 MG PO PRN ×2 (01:47→07:57)
[2019-06-24] MEDS ORDERED: HYDROmorphone TAB* 2 MG PO PRN (08:12)
[2019-06-24] MEDS: Gabapentin CAP(*) 300 MG PO SCH (09:20)
[2019-06-24 09:46] VITALS: BP 121/54
[2019-06-24] MEDS ORDERED: Vancomycin Trough Check NOTE FOLLOW UP ONE (10:00)
[2019-06-24] MEDS ORDERED: Lidocaine PATCH 5%* 1 PATCH TRANSDERM PRN (10:14)
[2019-06-24 10:18] LABS: EGFR Non-African American 135.6 (>60); Vancomycin Trough 18.3 mcg/mL
--- NOTE | 2019-06-24 10:22 | PN ---
Subjective Date of Service: 06/24/19 Interval History: C/o mid back pain, which is chronic but worse than baseline. Interested in lidocaine patch. Tells me he thinks it might be related to how he laid in bed last night. Denies fever/chills, chest pain, difficulty breathing. Still has pain at left upper rib cage at site of chest tube removal but is not worsened from yesterday. Denies abd pain, diaphoresis, diarrhea. Family History: Unchanged from Admission Social History: Unchanged from Admission Past Medical History: Unchanged from Admission Objective Active Medications: Acetaminophen (Tylenol Tab*) 975 mg PO Q6H PRN PRN Reason: PAIN - MILD Last Admin: 06/23/19 17:57 Dose: 975 mg Gabapentin (Neurontin Cap(*)) 600 mg PO TID [facility] Last Admin: 06/24/19 09:20 Dose: 600 mg Hydromorphone HCl (Dilaudid Tab*) 1 mg PO Q4H PRN PRN Reason: PAIN - SEVERE Last Admin: 06/24/19 09:54 Dose: 1 mg Vancomycin HCl 1,000 mg/ (Sodium Chloride) 250 mls @ 166.667 mls/hr IVPB Q6H [facility] Last Admin: 06/24/19 05:51 Dose: 166.667 mls/hr Ketorolac Tromethamine (Toradol Inj*) 30 mg IV PUSH Q6H PRN PRN Reason: PAIN - MODERATE Last Admin: 06/23/19 10:16 Dose: 30 mg Lidocaine (Lidoderm 5% Patch*) 1 patch TRANSDERM DAILY PRN PRN Reason: PAIN - MILD Loperamide HCl (Imodium Cap*) 2 mg PO .SEE DIRECTIONS PRN PRN Reason: DIARRHEA Lorazepam (Ativan Tab(*)) 0.5 mg PO Q4H PRN PRN Reason: Anxiety/agitation Last Admin: 06/24/19 07:57 Dose: 0.5 mg Nicotine Polacrilex (Nicotine Gum*) 4 mg PO Q2H PRN PRN Reason: CRAVING Last Admin: 06/09/19 13:53 Dose: 4 mg Ondansetron HCl (Zofran Inj*) 4 mg IV Q4H PRN PRN Reason: NAUSEA/VOMITING Last Admin: 06/13/19 13:06 Dose: 4 mg Pharmacy Consult (Vancomycin Per Pharmacy*) 1 note FOLLOW UP .VANC PER PHARMACY ALEX; Protocol Pharmacy Profile Note (Lidocaine Patch Remove*) 1 note N/A [address] [facility] Vital Signs - 8 hr 06/24/19 06/24/19 06/24/19 05:49 05:50 07:15 Temperature 99.1 F Pulse Rate 73 Respiratory 18 18 20 Rate Blood Pressure 121/54 (mmHg) O2 Sat by Pulse 98 Oximetry 06/24/19 06/24/19 06/24/19 07:57 09:20 09:54 Temperature Pulse Rate Respiratory 20 16 14 Rate Blood Pressure (mmHg) O2 Sat by Pulse Oximetry 06/24/19 09:55 Temperature Pulse Rate Respiratory 14 Rate Blood Pressure (mmHg) O2 Sat by Pulse Oximetry Oxygen Devices in Use Now: None Appearance: WD WN young white male, laying in bed, appearing comfortable and in NAD Eyes: No Scleral Icterus, - - PERRL Ears/Nose/Mouth/Throat: Mucous Membranes Moist Neck: Trachea Midline Respiratory: Symmetrical Chest Expansion and Respiratory Effort, - - decrease breath sounds at bilateral bases, overall CTA in mid and upper lung weinstein Cardiovascular: NL Sounds; No Murmurs; No JVD, RRR Abdominal: - - abd soft, nontender, nondistended; no CVA tenderness Extremities: No Edema, No Clubbing, Cyanosis, - - MSK: no tenderness to palpation in thoracic or lumbar spine along spinous processes; tenderness to palpation of bilateral paraspinal muscles in the lower thoracic region Skin: No Rash or Ulcers Neurological: Alert and Oriented x 3, NL Muscle Strength and Tone Result Diagrams: 06/21/19 09:25 06/24/19 09:41 Microbiology and Other Data: Microbiology 06/07/19 10:37 Gram Stain - Final Joint Fluid(Synovial) - Shoulder Right Skin and Soft Tissue MRSA/MSSA (PCR - Final Mrsa Negative S.aureus Negative 06/06/19 19:51 Aerobic Blood Culture - Preliminary Blood Venous Anaerobic Blood Culture - Preliminary Blood MRSA/MSSA (PCR) - Final Mrsa Positive S.aureus Positive 06/06/19 19:51 Aerobic Blood Culture - Preliminary Blood Venous Anaerobic Blood Culture - Preliminary 06/07/19 04:21 Legionella Urinary Antigen - Final Urine Negative Legionella Antigen 06/07/19 04:21 Streptococcus pneumoniae Ag Screen - Final Urine Negative S. pneumo Antigen Assess/Plan/Problems-Billing Assessment: Mr. Humphreys is a 28 yo M with PMH of HCV, substance abuse; who presented with MRSA bacteremia noted on BC from [place], bilat LL pneumonia with abscesses. Previously with high concern for endocarditis due to concern for possibly septic joint, though WALKER without vegetations and R shoulder joint aspirate negative. - Patient Problems (1) Bacteremia Status: Acute Code(s): R78.81 - BACTEREMIA SNOMED Code(s): 3621742 Comment: - MRSA positive bacteremia - Surveillance BC without growth - WALKER without vegetation - Appreciate ID consult - Continue vanco (day 18, time course to be determined by ID) - ID has made recommendations for outpatient treatment, as the patient is frequently threatening to leave AMA (2) Bilateral pneumonia Status: Acute Code(s): J18.9 - PNEUMONIA, UNSPECIFIED ORGANISM SNOMED Code(s ): 962961277 Comment: - Bilat pneumonia with cavitary masses noted on imaging from [place] - Negative urine antigen for S. pneumo, Legionella. Sputum culture growing MRSA - Continue vanco (day 18) - Thoracentesis 06/18 revealed multiloculated, complex pleural effusion indicating likely lung abscess. Pleural fluid culture MRSA positive - Chest tube placed 06/21 and was subsequently removed 06/22 due to patient discomfort and threatening to remove himself. Total of ~450cc drained in 24hrs - Pulmonary toilet, encouraged OOB and incentive spirometry (3) Lung abscess Status: Acute Code(s): J85.2 - ABSCESS OF LUNG WITHOUT PNEUMONIA SNOMED Code (s): 73844481 Comment: -s/p left chest tube placement and removal 06/21-06/22; approx 450 cc fluid collected; further information above -repeat CXR with interval improvement of fluid collection in left lower lobe (4) IV drug abuse Status: Acute Code(s): F19.10 - OTHER PSYCHOACTIVE SUBSTANCE ABUSE, UNCOMPLICATED SNOMED Code(s): 296954869 Comment: - Last used 06/06 though persistent suspicious behavior in bathroom after girlfriend visits creates for concern for IV drug use while in hospital; additionally a needle was found in his bedding - SW involved; patient refuses inpatient drug and alcohol rehab - Willing to start Suboxone prior to d/c. Meanwhile, decreasing dilaudid and continuing gabapentin, lorazepam, loperamide, and zofran for any withdrawal sxs - continue visitor searches and leave door open - plans to f/u with [facility] outpatient after hospital stay (5) HCV (hepatitis C virus) Status: Acute Comment: - Without previous treatment - Patient states that last time it was checked, viral count was low (6) Tobacco use Status: Acute Code(s): Z72.0 - TOBACCO USE SNOMED Code(s): 738499805 Comment: -continue prn nicotine gum (7) Back pain Status: Acute Code(s): M54.9 - DORSALGIA, UNSPECIFIED SNOMED Code(s): 275489876 Comment: -lidocaine patch -appears musculoskeletal -encouraged ambulation (8) DVT prophylaxis Status: Acute Code(s): Z29.9 - ENCOUNTER FOR PROPHYLACTIC MEASURES, UNSPECIFIED SNOMED Code(s): 152172899 Comment: -SCDs (9) Full code status Status: Acute Code(s): Z78.9 - OTHER SPECIFIED HEALTH STATUS SNOMED Code(s) : 042436743 Comment: Status and Disposition: Inpatient. Anticipate d/c home when medically stable and IV abx course is finished. Possibility of swing status prior to home depending on medicaid approval as patient was previously uninsured
[2019-06-24] MEDS: Ketorolac INJ* 30 MG/ML 1 ML VIAL IV PUSH PRN (10:43)
--- NOTE | 2019-06-24 17:59 | DS ---
CC: Dr. Rasheed Chappell; Iman Mcfadden NP * DISCHARGE SUMMARY: DATE OF ADMISSION: 06/07/19 DATE OF DISCHARGE: 06/24/19, against medical advice. PRIMARY CARE PROVIDER: None. ATTENDING PHYSICIAN WHILE IN THE HOSPITAL: Dr. Karlos Dowling * (dictated by ARMOND Brice). CONSULTING INFECTIOUS DISEASE SPECIALIST: Dr. Rasheed Chappell. ADDICTION MEDICINE CONSULT: Iman Mcfadden NP GENERAL SURGERY CONSULT: Dr. Jazmine Dickson. PRIMARY DIAGNOSES: 1. Methicillin-resistant Staphylococcus aureus bacteremia. 2. Bilateral pneumonia. 3. Left lung abscess, status post thoracentesis and chest tube placement with residual removal, with methicillin-resistant Staphylococcus aureus positive culture. SECONDARY DIAGNOSES: 1. Hepatitis C. 2. IV heroin use. 3. Cocaine use. PERTINENT STUDIES WHILE IN THE HOSPITAL: Upper extremity CT on 06/06/19, impression: 1. Within the bone marrow of the proximal humeral shaft centrally, there is a hyperdense lesion with chondroid matrix. One likely etiology is enchondroma. Correlation with x-rays of the right humerus recommended. 2. A few enlarged right axillary lymph nodes are identified. 3. Within the right middle lobe, there is a nodular consolidation measuring 2.2 cm in diameter. The differential includes infection and malignancy. There is an additional band of consolidation partially visualized within the right lower lobe. Followup CT chest is recommended. 4. Additional findings in full report. Shoulder x-ray on 06/06/19: 1. No evidence for fracture. 2. Chondroid lesion of the proximal humeral metaphysis. Recommend a followup x - ray of the shoulder in 3 months to demonstrate stability. Alternatively, this can be further evaluated with MRI. Chest x-ray on 06/06/19, impression: Left lower lobe infiltrate and small pleural effusion versus pleural thickening. Transesophageal echocardiogram on 06/07/19, conclusion: Systolic function is normal with EF of 55% to 60%. No evidence of thrombus in the atrial cavity or appendage. A PFO was not demonstrated as there were rarely bubbles observed. Trace regurgitation of the mitral valve. Mild regurgitation of the tricuspid valve. No obvious vegetations. No obvious masses or clots. Please see full report for further details. Chest x-ray on 06/14/19, impression: Left pleural effusion with left basilar atelectasis versus consolidation. Chest CT on 06/15/19, impression: 1. A 1.5 cm irregular nodule in the right middle lobe. The differential includes neoplasm. Recommend consideration for further evaluation with PET/CT and/or consideration of tissue sampling. 2. Left pleural effusion. 3. The liver and spleen appear enlarged, but are incompletely included within the field of view of the current examination. Chest ultrasound on 06/18/19, impression: Moderate-sized, slightly complex left pleural effusion, site marked for thoracentesis. Chest x-ray on 06/18/19: Status post left thoracentesis. Impression: Left pleural effusion persists. No pneumothorax is noted. Chest ultrasound on 06/20/19, impression: Complex left pleural effusion not significantly changed since 06/18/19. Chest x-ray on 06/21/19 after chest tube placement on the left side, impression : Left chest tube in place, small left pneumothorax, interval resolution of the left pleural effusion. Chest ultrasound on 06/22/19: Small dependent left pleural effusion and underlying atelectatic lung with interval decrease in volume of fluid compared to 06/20/19. Chest x-ray on 06/23/19, impression: 1. There is a small air-fluid at the left lung base consistent with small loculated hydropneumothorax. 2. Findings suggestive of bronchopneumonia at the right lung base. EKG on 06/06/19 with normal sinus rhythm. No ST depressions or elevations. Isolated T-wave inversion in V1. EKG on 06/09/19: Normal sinus rhythm at 75 beats per minute. Overall unchanged from previous EKG, again with isolated T-wave inversion in V1. PERTINENT LAB DATA: Blood culture on 06/06/19 positive for MRSA. Right shoulder synovial fluid with no growth on day 4, negative for MRSA from . Surveillance venous blood culture on 06/08/19 positive for MRSA. Surveillance blood culture on 06/09/19, no growth x5 days. Urine negative for legionella antigen and Strep pneumo antigen. Initial troponin 0.18, then later 0.03. HISTORY OF PRESENT ILLNESS/HOSPITAL COURSE: Lewis Humphreys is a 28-year-old white male with past medical history significant for previously untreated hepatitis C and IV heroin use, who presented to the emergency department on due to shortness of breath and chest pain. The patient was admitted to the hospital on 06/07/19 after chest x-ray demonstrated bilateral lower lobe pneumonia. Given the patient's presentation, he was started on empiric therapy with vancomycin and Zosyn. Initially, there was concern for possible septic joint due to his right shoulder pain. He had a joint aspiration by Orthopedics as well as by Interventional Radiology and both samples were not growing any bacteria ultimately. Given this initial concern for possible septic arthritis, there was concern for endocarditis and a transesophageal echocardiogram was performed, which was found to be negative for vegetations. After septic joint was ruled out, the likelihood of endocarditis is considered slim. Ultimately, his blood cultures demonstrated MRSA and ultimately the imaging demonstrated that he had complicated loculated pleural effusion on the left side consistent with lung abscess. Infectious Disease has seen this patient throughout this time and recommended IV vancomycin to treat the MRSA bacteremia, which was continued through the rest of his hospitalization without Zosyn. On 06/18/19, Dr. Lyons, the lock and dam operator, performed a thoracentesis to attempt to remove the fluid. She was only able to draw off approximately 2 cc of fluid and was therefore concerned for loculated nature of the pleural effusion. This pleural fluid analysis revealed MRSA positive culture as well. Later, General Surgery was consulted and Dr. Jazmine Dickson placed a chest tube for this patient on . On 06/22/19, the patient was threatening to pull out the chest tube due to his pain. For this reason, the general surgery team removed the chest tube. During that 24-hour period with his chest tube in place, he drained approximately 450 cc of fluid. Subsequently, his chest x-ray after removal demonstrated fairly good resolution of his pleural effusion meaning that the lung abscess was drained well, though there is still a small residual fluid collection. He and I did discuss that this is still present and demonstrated potential need for further thoracentesis down the line if continued IV antibiotics did not help resolve this as the loculated nature did make IV antibiotics difficult for penetration for therapy. The patient did have some ongoing social issues while he was in the hospital. He is uninsured and Social Work was involved in starting the Medicaid process and to this date he has not been approved yet, though the paperwork has been completed. Additionally, there were frequent issues with his girlfriend visiting and staying overnight and the nursing staff and security staff were quite concerned that he potentially had been using IV drugs. The reason for this is because several days after being in the hospital, and after his belongings had already been searched, a needle was found on his bed. At another point he had closed his bathroom door and locked it despite orders to leave his bathroom door open and there were concerns that he potentially had been using IV drugs during this time. Unfortunately, a urine sample was not collected to confirm or deny this IV drug use and ultimately the patient states that his constant monitoring was the reason for him wanting to leave the hospital against medical advice. Infectious Disease was thoroughly involved in this case as previously mentioned. He was tested negative for HIV 1 and 2. Because of the patient frequently threatening to leave against medical advice during his hospitalization, the infectious disease team did describe a contingency plan for oral antibiotics for the patient to use outpatient if he were to leave. However, it had been thoroughly explained to him by multiple providers including myself that a full course of IV antibiotics of at least 28 days was recommended. At the time of discharge, it was unclear if 28 days was the exact time course or if longer time was needed as infectious disease was planning to solidify the time course the following day. Additionally, the patient was seen in consultation by Iman Mcfadden NP, as an addiction medicine consult and did recommend plan for decreasing the patient off of Dilaudid, which was started at admission for unclear reasons. The patient did express multiple times that he was not interested in residential drug and alcohol rehab, though was interested in starting medication-assisted therapy with Suboxone. By date of discharge, he had not yet scored a COWS score greater than 6 and therefore was not yet started on Suboxone. He was not experiencing nausea, significant agitation, or diarrhea by the time of discharge and on the day of discharge he was still at times receiving Dilaudid as the plan was continuing to wean this. Ultimately, on the day of discharge, the patient was feeling comfortable with minimal complaints, though was mentioning some mid back pain and had no acute events overnight. Fifteen minutes after my evaluation, he was agitated by nursing staff with having to observe him in the bathroom and requested to leave against medical advice. He and I had multiple conversations about the risks of leaving against medical advice. I discussed that the alternative treatment was for him to stay in the hospital to continue to receive IV antibiotics for the suggested course per the infectious disease team, continue to have monitoring of his respiratory status and his vital signs as well as his blood work to monitor infectious markers. Again, we discussed that the risk of him leaving the hospital early prior to finishing his course of IV antibiotics runs the risk of worsening infection, possibility of further surgical intervention for his lungs, risk of disability or . The patient was free of distracting injury and had the capacity to make decisions for himself and understood the risks of leaving and benefits of staying in the hospital and ultimately elected to leave against medical advice. PHYSICAL EXAMINATION: Please see progress note from date of discharge. DISCHARGE INSTRUCTIONS: It is recommended that the patient have a followup x- ray of his shoulder in 3 months concerning the chondroid lesion on the proximal humerus. The patient is advised to please follow up with [facility] to start medication-assisted therapy as well as for close primary care followup as he will need this and he does not currently have a primary care provider. The patient should additionally follow up with Infectious Disease. I did express that since he is electing to leave against medical advice, he will be taking oral antibiotics and again this is not sufficient for his treatment, but is an alternative, less sufficient plan. He is advised to take the medication twice a day and do not miss any doses for 21 days. He should have repeat CBC, CRP, CMP once a week. He will hopefully be able to start medication-assisted therapy in the outpatient phase. He is advised to please return to the emergency department if he is experiencing fevers, chills, difficulty breathing , chest pain, hemoptysis, or discharge from his chest tube removal site. He left with his lidocaine patch in place and he was advised to remove it in approximately 11 hours. He is provided with [employer] coupon for his prescription for Bactrim at the pharmacy, and at this time, his Medicaid status is unclear and if [facility] could follow up on this that will be of great benefit to the patient. DISCHARGE DIET: Regular unrestricted diet. DISCHARGE ACTIVITY: The patient may return to normal activity as tolerated. CONDITION ON DISCHARGE: Guarded. DISPOSITION: Home, against medical advice. DISCHARGE MEDICATIONS: New medications: 1. Bactrim double strength tab p.o. b.i.d. x21 days. 2. Nicotine gum 4 mg p.o. q.2 hours p.r.n. cravings. 3. Loperamide 2 mg p.o. p.r.n. after every episode of diarrhea, maximum daily dose 16 mg. 4. Lidocaine patch 1 patch transdermally daily p.r.n. pain. Continued home medications: Not applicable. TIME SPENT: Approximately 50 minutes was spent on this discharge, approximately half this time was spent at bedside evaluating the patient, discussing the plan of care, and the risks of leaving against medical advice as well as assessing the patient and performing my physical exam. This is a brief summary of a complex medical stay. Please see the full electronic medical record for further details regarding his hospitalization. ARMOND BRICE [id number]/CPS #: [id number] ANAND
[2019-06-24] MEDS ORDERED: Lidocaine Patch REMOVE* 1 NOTE MISC SCH (21:00)
== END 2019-06-24 11:30 | disposition left against medical advice (07) | DRG 178 ==
LOC: ED 18:04 → MED 23:21 → OBSVTOIN 06-07 11:00 → MED 06-11 14:06
PROVIDERS: ADMIT Internal Medicine; ATTEND Internal Medicine
PROC: B24BZZ4 Ultrasonography of Heart with Aorta, Transesophageal (ICD-10-PCS; 2019-06-07)
PROC: 0W9B3ZX Drainage of Left Pleural Cavity, Percutaneous Approach, Diagnostic (ICD-10-PCS; 2019-06-18)
PROC: 0W9B00Z Drainage of Left Pleural Cavity with Drainage Device, Open Approach (ICD-10-PCS; principal; 2019-06-21 15:30)
DX: J85.1 Abscess of lung with pneumonia (principal); J90 Pleural effusion, not elsewhere classified; R78.81 Bacteremia; F11.23 Opioid dependence with withdrawal; L02.31 Cutaneous abscess of buttock; B95.62 Methicillin resistant Staphylococcus aureus infection as the cause of diseases classified elsewhere; F17.210 Nicotine dependence, cigarettes, uncomplicated; B19.20 Unspecified viral hepatitis C without hepatic coma; M25.511 Pain in right shoulder; F14.90 Cocaine use, unspecified, uncomplicated; R79.89 Other specified abnormal findings of blood chemistry; R68.84 Jaw pain; M54.9 Dorsalgia, unspecified
CPT/HCPCS: 20610; 36415; 71045; 71046; 71250; 76604; 77002; 80048; 80053; 80202; 80307; 82565; 83605; 83615; 84157; 84484; 84520; 85025; 85610; 86140; 87040; 87070; 87073; 87077; 87102; 87150; 87186; 87205; 87389; 87640; 87641; 87899; 89051; 93005; 99284; A9270-GY; G0480; J1170; J1885; J2060; J2250; J2270; J2405; J2543; J2704; J2997; J3370; J7639

== ENCOUNTER 2021-04-25 22:17 | Inpatient (IN) ==
[2021-04-25 23:01] LABS: ABS Eosinophils 0.1 10^3/ul (0-0.6); ABS Lymphocytes 1.9 10^3/ul (1.0-4.8); ABS Monocytes 0.6 10^3/ul (0-0.8); ABS Neutrophils 6.4 10^3/ul (1.5-7.7); Eosinophil % 1.2 %; Hematocrit 35 % (42-52); Hemoglobin 12.4 g/dL (14.0-18.0); Lymphocyte % 21.2 %; Mean Corpuscular HGB Conc 35 g/dL (31-36); Mean Corpuscular Hemoglobin 28 pg (27-31); Mean Corpuscular Volume 80 fL (80-94); Mean Platelet Volume 7.3 fL (7.4-10.4); Platelet Count 366 10^3/uL (150-450); Red Blood Count 4.41 10^6 /uL (4.18-5.48); Red Cell Distribution Width 13 % (10-15)
[2021-04-25 23:03] LABS: INR 1.22 (0.86-1.15)
[2021-04-25 23:15] LABS: Albumin/Globulin Ratio 0.9 (1-3); Calcium 10.2 mg/dL (8.6-10.3); Globulin 4.6 g/dL (2-4); Potassium 3.7 mmol/L (3.5-5.0); Total Bilirubin 0.3 mg/dL (0.2-1.0); Total Protein 8.6 g/dL (6.4-8.9); eGFR CKD-EPI 125.3 (>60)
[2021-04-26 03:41] LABS: C Reactive Protein 112.02 mg/L (<8.01)
[2021-04-26] MEDS ORDERED: Iohexol 350 (CONTRAST) 500 ML MDV IV ONE (03:56)
[2021-04-26 04:38] LABS: HIV 4th Generation Nonreactive (Nonreactive)
[2021-04-26] MEDS ORDERED: Vancomycin 1,250 MG in NS 0.9% 250 ml 250 ML IVPB ONE (06:05)
[2021-04-26] MEDS ORDERED: Cefepime 1 GM in Dextrose 1 GM/50 ML BAG IV ONE (06:05)
[2021-04-26 08:37] LABS: Rapid COVID-19 Molecular Undetected (Undetected)
[2021-04-26] MEDS ORDERED: Vancomycin 1,000 MG in NS 0.9% 250 ml 250 ML IVPB SCH (09:00)
[2021-04-26] MEDS ORDERED: NS 0.9% 250 ml 250 ML ONE (09:01)
[2021-04-26] MEDS ORDERED: Vancomycin per Pharmacy 1 EA NOTE FOLLOW UP PRN (09:07)
[2021-04-26 09:41] LABS: ABS Eosinophils 0.1 10^3/ul (0-0.6); ABS Lymphocytes 1.6 10^3/ul (1.0-4.8); ABS Monocytes 0.5 10^3/ul (0-0.8); Eosinophil % 1.3 %; Hematocrit 32 % (42-52); Lymphocyte % 21.8 %; Mean Corpuscular HGB Conc 35 g/dL (31-36); Mean Corpuscular Hemoglobin 28 pg (27-31); Mean Corpuscular Volume 80 fL (80-94); Mean Platelet Volume 7.4 fL (7.4-10.4); Platelet Count 344 10^3/uL (150-450); Red Cell Distribution Width 12 % (10-15); White Blood Count 7.3 10^3/uL (3.5-10.8)
[2021-04-26] MEDS ORDERED: Voriconazole 200 MG VIAL IV SCH (10:00)
[2021-04-26] MEDS ORDERED: VORICONAZOLE IVPB SCH (11:00)
[2021-04-26] MEDS ORDERED: NS 0.9% IVPB SCH (11:00)
[2021-04-26 11:13] LABS: Erythrocyte Sed Rate 90 mm/Hr (0-14)
[2021-04-26] MEDS ORDERED: Buprenorp/Nalox 4-1 MG FILM SL FILM SCH (12:00)
[2021-04-26] MEDS: Heparin 5000 UNITS/ML 1 mL VIAL IV SCH ×2 (15:02→22:19)
[2021-04-26] MEDS: Heparin DRIP 25,000 UNITS BAG 25,000 UNITS/500 ML BAG IV SCH (15:05)
[2021-04-26] MEDS ORDERED: Buprenorp/Nalox 4-1 MG FILM SL FILM PRN (15:22)
[2021-04-26] MEDS ORDERED: Ondansetron 4 mg VIAL 2 MG/ML 2 ml VIAL IV PRN (15:22)
[2021-04-26 20:07] LABS: Urine Benzodiazepine Screen Presumptive Positive (None Detect); Urine Cannabinoids Screen None Detected (None Detect); Urine Opiates Screen None Detected (None Detect)
[2021-04-26] MEDS: Vancomycin 1,250 MG in NS 0.9% 250 ml 250 ML IVPB SCH (20:28)
[2021-04-26] MEDS ORDERED: Cefepime 1 GM in Dextrose 1 GM/50 ML BAG IV SCH (21:00)
[2021-04-26] MEDS ORDERED: Cefepime ADVAN 1 GM in NS 0.9% 50 ML 50 ML IVPB SCH (21:00)
[2021-04-27] MEDS ORDERED: NS 0.9% IVPB SCH ×2 (02:30→14:30)
[2021-04-27] MEDS ORDERED: VORICONAZOLE IVPB SCH ×2 (02:30→14:30)
[2021-04-27] MEDS ORDERED: Acetaminophen IV 1 GM/100ML 100 ML IV ONE (03:49)
[2021-04-27 05:09] LABS: ABS Basophils 0.1 10^3/ul (0-0.2); ABS Eosinophils 0.1 10^3/ul (0-0.6); ABS Lymphocytes 1.6 10^3/ul (1.0-4.8); ABS Monocytes 0.5 10^3/ul (0-0.8); ABS Neutrophils 4.6 10^3/ul (1.5-7.7); Eosinophil % 1.5 %; Hematocrit 30 % (42-52); Hemoglobin 10.3 g/dL (14.0-18.0); Lymphocyte % 23.4 %; Mean Corpuscular HGB Conc 35 g/dL (31-36); Mean Corpuscular Hemoglobin 27 pg (27-31); Mean Corpuscular Volume 79 fL (80-94); Mean Platelet Volume 7.3 fL (7.4-10.4); Platelet Count 303 10^3/uL (150-450); Red Blood Count 3.78 10^6 /uL (4.18-5.48); Red Cell Distribution Width 13 % (10-15); White Blood Count 6.8 10^3/uL (3.5-10.8)
[2021-04-27 05:35] LABS: eGFR CKD-EPI 133.7 (>60)
[2021-04-27 07:21] VITALS: BP 118/63
[2021-04-27] MEDS: Heparin DRIP 25,000 UNITS BAG 25,000 UNITS/500 ML BAG IV SCH (07:54)
[2021-04-27] MEDS: Vancomycin 1,250 MG in NS 0.9% 250 ml 250 ML IVPB SCH (07:56)
[2021-04-27] MEDS ORDERED: Voriconazole 200 MG VIAL IV SCH (10:00)
[2021-04-27] MEDS ORDERED: Vancomycin Trough Check NOTE FOLLOW UP ONE (11:30)
[2021-04-29 19:11] LABS: Urine Alcohol Negative mg/dL (Cutoff: 10); Urine Barbiturates Negative; Urine Benzodiazepines Presumptive Positive ng/mL; Urine Cocaine Presumptive Positive ng/mL; Urine Methadone Negative (Negative); Urine Opiates Negative (Negative); Urine Phencyclidine Negative ng/mL (Cutoff: 25); Urine Tetrahydrocannabinol Negative ng/mL (Cutoff: 50)
[2021-05-01 10:51] LABS: Ur Benzoylecgonine Confirm 3371 ng/mL (Cutoff: 50); Urine Cocaine Confirm (GC/MS) Negative ng/mL (Cutoff: 50); Urine Cocaine Interpretation Positive.
== END 2021-04-27 09:00 | disposition left against medical advice (07) | DRG 134 ==
LOC: ED 22:17 → EDHOLD 04-26 07:57 → MED 04-26 11:10
PROVIDERS: ADMIT Internal Medicine; ATTEND Internal Medicine

== ENCOUNTER 2021-05-27 04:06 | Inpatient (IN) ==
[2021-05-27] MEDS ORDERED: NS 0.9% 1000 ml BAG 1,000 ML IV.FLUID IV ONE (05:00)
[2021-05-27] MEDS ORDERED: Buffered Lidocaine 1% SYRIN 1 ml INTRADERM ONE (06:41)
[2021-05-27 06:49] LABS: ABS Basophils 0.1 10^3/ul (0-0.2); ABS Eosinophils 0.1 10^3/ul (0-0.6); ABS Monocytes 0.6 10^3/ul (0-0.8); ABS Neutrophils 4.8 10^3/ul (1.5-7.7); Hematocrit 27 % (42-52); Hemoglobin 9.5 g/dL (14.0-18.0); Lymphocyte % 26.9 %; Mean Corpuscular HGB Conc 35 g/dL (31-36); Mean Corpuscular Hemoglobin 27 pg (27-31); Mean Corpuscular Volume 77 fL (80-94); Mean Platelet Volume 7.4 fL (7.4-10.4); Platelet Count 399 10^3/uL (150-450); Red Blood Count 3.54 10^6 /uL (4.18-5.48); Red Cell Distribution Width 13 % (10-15); White Blood Count 7.5 10^3/uL (3.5-10.8)
[2021-05-27 06:53] LABS: Activated Partial Thrombo Time 34.5 seconds (26.0-38.0); INR 1.45 (0.86-1.15)
[2021-05-27] MEDS ORDERED: Vancomycin 1,000 MG in NS 0.9% 250 ml 250 ML IVPB ONE (06:54)
[2021-05-27] MEDS ORDERED: Vancomycin per Pharmacy 1 EA NOTE FOLLOW UP SCH (07:00)
[2021-05-27 07:12] LABS: ALT 18 U/L (7-52); Albumin 3.6 g/dL (3.2-5.2); Albumin/Globulin Ratio 0.9 (1-3); Alkaline Phosphatase 73 U/L (35-149); Blood Urea Nitrogen 7 mg/dL (6-24); C Reactive Protein 101.61 mg/L (<8.01); CO2 Carbon Dioxide 29 mmol/L (22-32); Calcium 9.6 mg/dL (8.6-10.3); Chloride 98 mmol/L (101-111); Globulin 4.1 g/dL (2-4); Glucose 104 mg/dL (70-100); Sodium 135 mmol/L (135-145); Total Protein 7.7 g/dL (6.4-8.9); eGFR CKD-EPI 134.4 (>60)
[2021-05-27 07:13] LABS: Troponin I 0.01 ng/mL (<0.03)
[2021-05-27] MEDS ORDERED: Vancomycin 1,250 MG in NS 0.9% 250 ml 250 ML IVPB ONE (07:15)
[2021-05-27 07:19] LABS: Anion Gap 8 mmol/L (2-11)
[2021-05-27 08:14] LABS: Urine Appearance Clear; Urine Bilirubin Negative (Negative); Urine Blood Negative (Negative); Urine Color Yellow; Urine Glucose Negative (Negative); Urine Ketones Negative (Negative); Urine Nitrite Negative (Negative); Urine Protein Negative (Negative); Urine Specific Gravity 1.006 (1.002-1.030); Urine Urobilinogen Negative (Negative)
[2021-05-27 08:16] LABS: Potassium Redraw 3.1 mmol/L (3.5-5.0)
[2021-05-27 08:27] LABS: Urine Benzodiazepine Screen None Detected (None Detect); Urine Cannabinoids Screen None Detected (None Detect); Urine Opiates Screen None Detected (None Detect)
[2021-05-27] MEDS ORDERED: Buprenorp/Nalox 8-2 MG FILM SL FILM SCH (09:00)
[2021-05-27] MEDS: Nicotine PATCH 21 MG/24 HR PATCH TRANSDERM SCH (09:27)
[2021-05-27] MEDS ORDERED: Senna TAB 8.6 mg TAB PO PRN (10:02)
[2021-05-27] MEDS: KCL 10 MEQ/50 ML IVPREMIX 10 MEQ/50 ML BAG IV SCH ×3 (10:52→15:35)
[2021-05-27] MEDS: Polyethylene Glycol 3350 17 GM PACKET PO SCH (11:00)
[2021-05-27] MEDS: Buprenorp/Nalox 4-1 MG FILM SL FILM SCH ×2 (13:58→20:55)
[2021-05-27] MEDS ORDERED: Potassium Chlor 20 meq TAB.ER PO ONE (15:17)
[2021-05-27] MEDS ORDERED: Vancomycin 1000 MG in NS 0.9% 250 ML IVPB ONE (16:00)
[2021-05-27] MEDS ORDERED: Gadoteridol (CONTRAST) 279.3 MG/ML 10 ML IV ONE (17:28)
[2021-05-27] MEDS: cefTRIAXone 2 GM ADDV.VIAL 2 GM in NS 0.9% 100 ml BAG 100 ML IV SCH (20:53)
[2021-05-28] MEDS: Vancomycin 1000 MG in NS 0.9% 250 ML IVPB SCH ×6 (00:17→23:38)
[2021-05-28 07:48] LABS: ABS Basophils 0.1 10^3/ul (0-0.2); ABS Eosinophils 0.1 10^3/ul (0-0.6); ABS Lymphocytes 1.5 10^3/ul (1.0-4.8); ABS Monocytes 0.5 10^3/ul (0-0.8); ABS Neutrophils 4.4 10^3/ul (1.5-7.7); Hematocrit 28 % (42-52); Hemoglobin 9.4 g/dL (14.0-18.0); Mean Corpuscular HGB Conc 34 g/dL (31-36); Mean Corpuscular Hemoglobin 26 pg (27-31); Mean Corpuscular Volume 78 fL (80-94); Mean Platelet Volume 7.1 fL (7.4-10.4); Platelet Count 360 10^3/uL (150-450); Red Cell Distribution Width 13 % (10-15); White Blood Count 6.6 10^3/uL (3.5-10.8)
[2021-05-28 07:58] LABS: Albumin 3.3 g/dL (3.2-5.2); Albumin/Globulin Ratio 0.9 (1-3); Calcium 9.3 mg/dL (8.6-10.3); Globulin 3.8 g/dL (2-4); Magnesium 1.7 mg/dL (1.9-2.7); Potassium 4.2 mmol/L (3.5-5.0); Total Bilirubin 0.3 mg/dL (0.2-1.0); Total Protein 7.1 g/dL (6.4-8.9); eGFR CKD-EPI 136.6 (>60)
[2021-05-28] MEDS: cefTRIAXone 2 GM ADDV.VIAL 2 GM in NS 0.9% 100 ml BAG 100 ML IV SCH (08:21)
[2021-05-28] MEDS ORDERED: Magnesium Sulfate 2 gm BAG 2 GM/50 ML BAG IVPB ONE (09:20)
[2021-05-28] MEDS: Polyethylene Glycol 3350 17 GM PACKET PO SCH (09:37)
[2021-05-28] MEDS: Nicotine PATCH 21 MG/24 HR PATCH TRANSDERM SCH (10:00)
[2021-05-28] MEDS: Neomycin/Polymy/Dex OPTH.SUSP MAXITROL 0.1% 5 ML LEFT EYE SCH ×3 (11:23→20:05)
[2021-05-28] MEDS: Buprenorp/Nalox 4-1 MG FILM SL FILM SCH (11:28)
[2021-05-28] MEDS ORDERED: Midazolam 5 mg/5 ml VIAL 1 mg/ml 5 ml VIAL (5 mg) ONE (13:10)
[2021-05-28] MEDS ORDERED: Propofol 10 MG/ML 20 ML BTL ONE ×2 (13:11→14:27)
[2021-05-28] MEDS ORDERED: Lidocaine 2% PF 5 ML VIAL ONE (13:11)
[2021-05-28] MEDS ORDERED: fentaNYL 250 mcg/5 ml 50 MCG/ML 5 ml VIAL (250 MCG) ONE (13:11)
[2021-05-28] MEDS ORDERED: Ketamine HCL 50 mg/ml 10 ml VIAL (500 MG) ONE (13:12)
[2021-05-29] MEDS ORDERED: Vancomycin Trough Check NOTE FOLLOW UP ONE (05:30)
[2021-05-29 06:32] LABS: ABS Eosinophils 0.2 10^3/ul (0-0.6); ABS Lymphocytes 1.2 10^3/ul (1.0-4.8); ABS Monocytes 0.4 10^3/ul (0-0.8); ABS Neutrophils 5.6 10^3/ul (1.5-7.7); Eosinophil % 2.7 %; Hematocrit 31 % (42-52); Hemoglobin 10.2 g/dL (14.0-18.0); Mean Corpuscular HGB Conc 34 g/dL (31-36); Mean Corpuscular Hemoglobin 26 pg (27-31); Mean Corpuscular Volume 78 fL (80-94); Mean Platelet Volume 7.3 fL (7.4-10.4); Nucleated Red Blood Cells % 0.2; Platelet Count 371 10^3/uL (150-450); Red Blood Count 3.92 10^6 /uL (4.18-5.48); Red Cell Distribution Width 13 % (10-15); White Blood Count 7.3 10^3/uL (3.5-10.8)
[2021-05-29 06:37] LABS: Calcium 9.4 mg/dL (8.6-10.3); Magnesium 1.9 mg/dL (1.9-2.7); Potassium 4.6 mmol/L (3.5-5.0)
[2021-05-29 06:43] LABS: Phosphorus 3.9 mg/dL (2.5-5.0); Vancomycin Trough 24.9 mcg/mL; eGFR CKD-EPI 137.4 (>60)
[2021-05-29 07:24] LABS: eGFR CKD-EPI 137.4 (>60)
[2021-05-29] MEDS: Nicotine PATCH 21 MG/24 HR PATCH TRANSDERM SCH (07:48)
[2021-05-29] MEDS: Polyethylene Glycol 3350 17 GM PACKET PO SCH (07:49)
[2021-05-29] MEDS: Neomycin/Polymy/Dex OPTH.SUSP MAXITROL 0.1% 5 ML LEFT EYE SCH ×3 (07:49→20:10)
[2021-05-29] MEDS ORDERED: Polyethylene Glycol 3350 17 GM PACKET PO SCH (09:00)
[2021-05-29] MEDS: Vancomycin 1000 MG in NS 0.9% 250 ML IVPB SCH ×2 (09:58→15:07)
[2021-05-29] MEDS: cefTRIAXone 2 GM ADDV.VIAL 2 GM in NS 0.9% 100 ml BAG 100 ML IV SCH ×2 (15:18→20:34)
[2021-05-29] MEDS ORDERED: Senna TAB 8.6 mg TAB PO SCH (21:00)
[2021-05-30] MEDS ORDERED: HYDROmorphone 1 MG/1 ML SYRINGE IV SLOW PU ONE (02:35)
[2021-05-30 07:43] LABS: ABS Eosinophils 0.2 10^3/ul (0-0.6); ABS Lymphocytes 0.6 10^3/ul (1.0-4.8); ABS Monocytes 0.5 10^3/ul (0-0.8); ABS Neutrophils 4.3 10^3/ul (1.5-7.7); Hematocrit 29 % (42-52); Hemoglobin 9.7 g/dL (14.0-18.0); Lymphocyte % 10.8 %; Mean Corpuscular HGB Conc 34 g/dL (31-36); Mean Corpuscular Hemoglobin 26 pg (27-31); Mean Corpuscular Volume 78 fL (80-94); Mean Platelet Volume 6.8 fL (7.4-10.4); Platelet Count 438 10^3/uL (150-450); Red Cell Distribution Width 13 % (10-15); White Blood Count 5.7 10^3/uL (3.5-10.8)
[2021-05-30 07:59] LABS: Calcium 7.7 mg/dL (8.6-10.3); Magnesium 1.5 mg/dL (1.9-2.7); eGFR CKD-EPI 141.6 (>60)
[2021-05-30] MEDS ORDERED: Vancomycin 1000 MG in NS 0.9% 250 ML IVPB SCH (08:00)
[2021-05-30] MEDS ORDERED: Acetaminophen IV 1 GM/100ML VI 100 ML IV PRN (08:02)
[2021-05-30 08:04] VITALS: BP 123/73
[2021-05-30] MEDS: Nicotine PATCH 21 MG/24 HR PATCH TRANSDERM SCH (08:57)
[2021-05-30] MEDS: Polyethylene Glycol 3350 17 GM PACKET PO SCH (09:08)
[2021-05-30] MEDS: Neomycin/Polymy/Dex OPTH.SUSP MAXITROL 0.1% 5 ML LEFT EYE SCH (09:08)
[2021-05-30] MEDS: Vancomycin 1000 MG in NS 0.9% 250 ML IVPB SCH (09:22)
[2021-05-30] MEDS ORDERED: Magnesium Sulfate 2 gm BAG 2 GM/50 ML BAG IVPB ONE (09:31)
[2021-05-30] MEDS ORDERED: Potassium Chlor 20 meq TAB.ER PO ONE (09:32)
[2021-05-30] MEDS ORDERED: KCL 10 MEQ/50 ML IVPREMIX 10 MEQ/50 ML BAG IV SCH (10:00)
[2021-05-31] MEDS ORDERED: Vancomycin Trough Check NOTE FOLLOW UP ONE (07:30)
== END 2021-05-30 11:58 | disposition swing bed (61) | DRG 344 ==
LOC: ED 04:06 → EDHOLD 06:29 → SUATTDRO 06:29 → MEDTELE 08:25
PROVIDERS: ADMIT Internal Medicine; ATTEND Student in an Organized Health Care Education/Training Program
PROC: O.CATEE (2021-05-28 13:00)

== ENCOUNTER 2021-05-30 12:01 | Inpatient (IN) ==
[2021-05-30] MEDS ORDERED: HYDROCORTISONE LEFT EYE ONE (12:10)
[2021-05-30] MEDS ORDERED: POLYMYXIN B LEFT EYE ONE (12:10)
[2021-05-30] MEDS ORDERED: NEOMYCIN LEFT EYE ONE (12:10)
[2021-05-30] MEDS ORDERED: Vancomycin per Pharmacy 1 EA NOTE FOLLOW UP SCH (13:00)
[2021-05-30] MEDS ORDERED: Magnesium Sulfate 2 gm BAG 2 GM/50 ML BAG IVPB ONE (15:07)
[2021-05-30] MEDS: KCL 10 MEQ/50 ML IVPREMIX 10 MEQ/50 ML BAG IV SCH ×4 (15:24→23:21)
[2021-05-30] MEDS: HYDROCORTISONE LEFT EYE SCH ×2 (15:28→19:59)
[2021-05-30] MEDS: POLYMYXIN B LEFT EYE SCH ×2 (15:28→19:59)
[2021-05-30] MEDS: NEOMYCIN LEFT EYE SCH ×2 (15:28→19:59)
[2021-05-30] MEDS: Vancomycin 1000 MG in NS 0.9% 250 ML IVPB SCH (18:36)
[2021-05-30] MEDS: Senna TAB 8.6 mg TAB PO SCH (20:00)
[2021-05-30] MEDS: cefTRIAXone 2 GM ADDV.VIAL 2 GM in NS 0.9% 100 ml BAG 100 ML IV SCH (21:09)
[2021-05-30] MEDS ORDERED: KCL 10 MEQ/50 ML IVPREMIX 10 MEQ/50 ML BAG ONE (23:16)
[2021-05-31] MEDS: Vancomycin 1000 MG in NS 0.9% 250 ML IVPB SCH ×3 (00:32→18:19)
[2021-05-31] MEDS: Acetaminophen IV 1 GM/100ML VI 100 ML IV PRN (01:01)
[2021-05-31] MEDS ORDERED: Vancomycin Trough Check NOTE FOLLOW UP ONE (08:30)
[2021-05-31] MEDS: HYDROCORTISONE LEFT EYE SCH ×3 (09:00→23:15)
[2021-05-31] MEDS: POLYMYXIN B LEFT EYE SCH ×3 (09:00→23:15)
[2021-05-31] MEDS: Polyethylene Glycol 3350 17 GM PACKET PO SCH (09:00)
[2021-05-31] MEDS: NEOMYCIN LEFT EYE SCH ×3 (09:00→23:15)
[2021-05-31 09:49] LABS: Vancomycin Trough 8.7 mcg/mL; eGFR CKD-EPI 130.4 (>60)
[2021-05-31] MEDS: Nicotine PATCH 21 MG/24 HR PATCH TRANSDERM SCH (09:57)
[2021-05-31] MEDS: Senna TAB 8.6 mg TAB PO SCH (22:09)
[2021-05-31] MEDS: cefTRIAXone 2 GM ADDV.VIAL 2 GM in NS 0.9% 100 ml BAG 100 ML IV SCH (22:11)
[2021-06-01] MEDS: Vancomycin 1000 MG in NS 0.9% 250 ML IVPB SCH ×3 (01:26→17:05)
[2021-06-01] MEDS: Nicotine PATCH 21 MG/24 HR PATCH TRANSDERM SCH (08:44)
[2021-06-01] MEDS: Polyethylene Glycol 3350 17 GM PACKET PO SCH (08:46)
[2021-06-01] MEDS: NEOMYCIN LEFT EYE SCH ×3 (08:50→20:21)
[2021-06-01] MEDS: POLYMYXIN B LEFT EYE SCH ×3 (08:50→20:21)
[2021-06-01] MEDS: HYDROCORTISONE LEFT EYE SCH ×3 (08:50→20:21)
[2021-06-01] MEDS: cefTRIAXone 2 GM ADDV.VIAL 2 GM in NS 0.9% 100 ml BAG 100 ML IV SCH (20:20)
[2021-06-01] MEDS: Senna TAB 8.6 mg TAB PO SCH (20:21)
[2021-06-01] MEDS: Acetaminophen IV 1 GM/100ML VI 100 ML IV PRN (21:43)
[2021-06-02] MEDS: Vancomycin 1000 MG in NS 0.9% 250 ML IVPB SCH ×2 (01:30→10:45)
[2021-06-02] MEDS: Nicotine PATCH 21 MG/24 HR PATCH TRANSDERM SCH ×2 (08:12→10:36)
[2021-06-02] MEDS: HYDROCORTISONE LEFT EYE SCH ×4 (08:13→20:25)
[2021-06-02] MEDS: Polyethylene Glycol 3350 17 GM PACKET PO SCH (08:13)
[2021-06-02] MEDS: POLYMYXIN B LEFT EYE SCH ×4 (08:13→20:25)
[2021-06-02] MEDS: NEOMYCIN LEFT EYE SCH ×4 (08:13→20:25)
[2021-06-02] MEDS ORDERED: Buprenorphine 2 mg SL TAB SL PRN (08:19)
[2021-06-02] MEDS ORDERED: Vancomycin Trough Check NOTE FOLLOW UP ONE (08:30)
[2021-06-02 09:16] LABS: Vancomycin Trough 10.5 mcg/mL
[2021-06-02] MEDS: Lidocaine PATCH 5% PATCH TRANSDERM SCH (10:45)
[2021-06-02] MEDS: Vancomycin 1,250 MG in NS 0.9% 250 ml 250 ML IVPB SCH (17:24)
[2021-06-02] MEDS: Senna TAB 8.6 mg TAB PO SCH (20:25)
[2021-06-02] MEDS: cefTRIAXone 2 GM ADDV.VIAL 2 GM in NS 0.9% 100 ml BAG 100 ML IV SCH (22:45)
[2021-06-03] MEDS: Lidocaine Patch REMOVE NOTE PATCH OFF SCH ×2 (01:07→20:33)
[2021-06-03] MEDS: Acetaminophen IV 1 GM/100ML 100 ML IV PRN (01:46)
[2021-06-03] MEDS: Vancomycin 1,250 MG in NS 0.9% 250 ml 250 ML IVPB SCH ×3 (02:31→18:15)
[2021-06-03] MEDS: Lidocaine PATCH 5% PATCH TRANSDERM SCH (08:25)
[2021-06-03] MEDS: Nicotine PATCH 21 MG/24 HR PATCH TRANSDERM SCH (08:26)
[2021-06-03] MEDS: POLYMYXIN B LEFT EYE SCH ×4 (08:27→20:27)
[2021-06-03] MEDS: Polyethylene Glycol 3350 17 GM PACKET PO SCH (08:27)
[2021-06-03] MEDS: NEOMYCIN LEFT EYE SCH ×4 (08:27→20:27)
[2021-06-03] MEDS: HYDROCORTISONE LEFT EYE SCH ×4 (08:27→20:27)
[2021-06-03] MEDS: cefTRIAXone 2 GM ADDV.VIAL 2 GM in NS 0.9% 100 ml BAG 100 ML IV SCH (20:00)
[2021-06-03] MEDS: Senna TAB 8.6 mg TAB PO SCH (20:31)
[2021-06-04] MEDS: Vancomycin 1,250 MG in NS 0.9% 250 ml 250 ML IVPB SCH ×3 (00:34→17:32)
[2021-06-04] MEDS ORDERED: Vancomycin Trough Check NOTE FOLLOW UP ONE (08:30)
[2021-06-04] MEDS: Lidocaine PATCH 5% PATCH TRANSDERM SCH (09:38)
[2021-06-04] MEDS: Nicotine PATCH 21 MG/24 HR PATCH TRANSDERM SCH (09:39)
[2021-06-04] MEDS: POLYMYXIN B LEFT EYE SCH ×3 (09:40→23:02)
[2021-06-04] MEDS: NEOMYCIN LEFT EYE SCH ×3 (09:40→23:02)
[2021-06-04] MEDS: Polyethylene Glycol 3350 17 GM PACKET PO SCH (09:40)
[2021-06-04] MEDS: HYDROCORTISONE LEFT EYE SCH ×3 (09:40→23:02)
[2021-06-04 10:03] LABS: eGFR CKD-EPI 126.9 (>60)
[2021-06-04 10:22] LABS: Vancomycin Trough 14.2 mcg/mL
[2021-06-04] MEDS: Senna TAB 8.6 mg TAB PO SCH (22:32)
[2021-06-04] MEDS: cefTRIAXone 2 GM ADDV.VIAL 2 GM in NS 0.9% 100 ml BAG 100 ML IV SCH (22:42)
[2021-06-04] MEDS: Lidocaine Patch REMOVE NOTE PATCH OFF SCH (23:02)
[2021-06-05] MEDS: Vancomycin 1,250 MG in NS 0.9% 250 ml 250 ML IVPB SCH ×3 (03:57→17:17)
[2021-06-05] MEDS: Lidocaine PATCH 5% PATCH TRANSDERM SCH (09:02)
[2021-06-05] MEDS: HYDROCORTISONE LEFT EYE SCH ×3 (09:06→21:25)
[2021-06-05] MEDS: Nicotine PATCH 21 MG/24 HR PATCH TRANSDERM SCH (09:06)
[2021-06-05] MEDS: Polyethylene Glycol 3350 17 GM PACKET PO SCH (09:06)
[2021-06-05] MEDS: POLYMYXIN B LEFT EYE SCH ×3 (09:06→21:25)
[2021-06-05] MEDS: NEOMYCIN LEFT EYE SCH ×3 (09:06→21:25)
[2021-06-05] MEDS: cefTRIAXone 2 GM ADDV.VIAL 2 GM in NS 0.9% 100 ml BAG 100 ML IV SCH (20:29)
[2021-06-05] MEDS: Senna TAB 8.6 mg TAB PO SCH ×2 (20:30→20:31)
[2021-06-05] MEDS: Lidocaine Patch REMOVE NOTE PATCH OFF SCH (21:25)
[2021-06-06] MEDS: Vancomycin 1,250 MG in NS 0.9% 250 ml 250 ML IVPB SCH ×3 (00:55→16:55)
[2021-06-06] MEDS: Lidocaine PATCH 5% PATCH TRANSDERM SCH (09:39)
[2021-06-06] MEDS: Nicotine PATCH 21 MG/24 HR PATCH TRANSDERM SCH (09:40)
[2021-06-06] MEDS: HYDROCORTISONE LEFT EYE SCH ×3 (09:40→22:21)
[2021-06-06] MEDS: POLYMYXIN B LEFT EYE SCH ×3 (09:40→22:21)
[2021-06-06] MEDS: NEOMYCIN LEFT EYE SCH ×3 (09:40→22:21)
[2021-06-06] MEDS: Polyethylene Glycol 3350 17 GM PACKET PO SCH (09:40)
[2021-06-06 11:39] LABS: ABS Eosinophils 0.1 10^3/ul (0-0.6); ABS Monocytes 0.5 10^3/ul (0-0.8); ABS Neutrophils 4.4 10^3/ul (1.5-7.7); Eosinophil % 1.5 %; Hematocrit 28 % (42-52); Hemoglobin 9.4 g/dL (14.0-18.0); Mean Corpuscular HGB Conc 33 g/dL (31-36); Mean Corpuscular Hemoglobin 25 pg (27-31); Mean Corpuscular Volume 76 fL (80-94); Mean Platelet Volume 7.3 fL (7.4-10.4); Platelet Count 364 10^3/uL (150-450); Red Blood Count 3.71 10^6 /uL (4.18-5.48); Red Cell Distribution Width 13 % (10-15); White Blood Count 6.1 10^3/uL (3.5-10.8)
[2021-06-06 11:58] LABS: Albumin 3.5 g/dL (3.2-5.2); Albumin/Globulin Ratio 0.7 (1-3); C Reactive Protein 107.2 mg/L (<8.01); Calcium 9.6 mg/dL (8.6-10.3); Potassium 4.4 mmol/L (3.5-5.0); Total Bilirubin 0.3 mg/dL (0.2-1.0); Total Protein 8.5 g/dL (6.4-8.9); eGFR CKD-EPI 137.4 (>60)
[2021-06-06] MEDS: cefTRIAXone 2 GM ADDV.VIAL 2 GM in NS 0.9% 100 ml BAG 100 ML IV SCH (20:07)
[2021-06-06] MEDS: Senna TAB 8.6 mg TAB PO SCH (20:13)
[2021-06-07] MEDS: Lidocaine Patch REMOVE NOTE PATCH OFF SCH ×2 (00:10→20:27)
[2021-06-07] MEDS: Vancomycin 1,250 MG in NS 0.9% 250 ml 250 ML IVPB SCH ×3 (00:34→16:58)
[2021-06-07] MEDS: Nicotine PATCH 21 MG/24 HR PATCH TRANSDERM SCH (08:29)
[2021-06-07] MEDS: Polyethylene Glycol 3350 17 GM PACKET PO SCH (08:29)
[2021-06-07] MEDS: Lidocaine PATCH 5% PATCH TRANSDERM SCH (09:21)
[2021-06-07] MEDS: HYDROCORTISONE LEFT EYE SCH ×3 (09:21→20:20)
[2021-06-07] MEDS: NEOMYCIN LEFT EYE SCH ×3 (09:21→20:20)
[2021-06-07] MEDS: POLYMYXIN B LEFT EYE SCH ×3 (09:21→20:20)
[2021-06-07] MEDS: cefTRIAXone 2 GM ADDV.VIAL 2 GM in NS 0.9% 100 ml BAG 100 ML IV SCH (19:47)
[2021-06-07] MEDS: Senna TAB 8.6 mg TAB PO SCH (20:24)
[2021-06-07] MEDS: Acetaminophen IV 1 GM/100ML 100 ML IV PRN (21:26)
[2021-06-08] MEDS: Vancomycin 1,250 MG in NS 0.9% 250 ml 250 ML IVPB SCH ×3 (00:41→21:53)
[2021-06-08] MEDS ORDERED: Vancomycin Trough Check NOTE FOLLOW UP ONE (08:30)
[2021-06-08] MEDS: Nicotine PATCH 21 MG/24 HR PATCH TRANSDERM SCH (10:52)
[2021-06-08] MEDS: HYDROCORTISONE LEFT EYE SCH ×3 (11:16→20:53)
[2021-06-08] MEDS: Lidocaine PATCH 5% PATCH TRANSDERM SCH (11:16)
[2021-06-08] MEDS: NEOMYCIN LEFT EYE SCH ×3 (11:16→20:53)
[2021-06-08] MEDS: POLYMYXIN B LEFT EYE SCH ×3 (11:16→20:53)
[2021-06-08] MEDS: Polyethylene Glycol 3350 17 GM PACKET PO SCH (11:18)
[2021-06-08 11:24] LABS: eGFR CKD-EPI 130.4 (>60)
[2021-06-08 12:22] LABS: Vancomycin Trough 11.5 mcg/mL
[2021-06-08] MEDS: cefTRIAXone 2 GM ADDV.VIAL 2 GM in NS 0.9% 100 ml BAG 100 ML IV SCH (20:01)
[2021-06-08] MEDS: Senna TAB 8.6 mg TAB PO SCH (20:51)
[2021-06-08] MEDS: Lidocaine Patch REMOVE NOTE PATCH OFF SCH (21:00)
[2021-06-09] MEDS: Vancomycin 1,250 MG in NS 0.9% 250 ml 250 ML IVPB SCH ×3 (05:54→22:11)
[2021-06-09] MEDS: Nicotine PATCH 21 MG/24 HR PATCH TRANSDERM SCH (09:21)
[2021-06-09] MEDS: Polyethylene Glycol 3350 17 GM PACKET PO SCH (10:31)
[2021-06-09] MEDS: HYDROCORTISONE LEFT EYE SCH ×3 (10:36→20:41)
[2021-06-09] MEDS: POLYMYXIN B LEFT EYE SCH ×3 (10:36→20:41)
[2021-06-09] MEDS: NEOMYCIN LEFT EYE SCH ×3 (10:36→20:41)
[2021-06-09] MEDS: Lidocaine PATCH 5% PATCH TRANSDERM SCH (10:40)
[2021-06-09] MEDS: cefTRIAXone 2 GM ADDV.VIAL 2 GM in NS 0.9% 100 ml BAG 100 ML IV SCH (20:22)
[2021-06-09] MEDS: Senna TAB 8.6 mg TAB PO SCH (20:38)
[2021-06-09] MEDS: Lidocaine Patch REMOVE NOTE PATCH OFF SCH (20:46)
[2021-06-10] MEDS: Vancomycin 1,250 MG in NS 0.9% 250 ml 250 ML IVPB SCH ×3 (06:02→22:51)
[2021-06-10] MEDS: Lidocaine PATCH 5% PATCH TRANSDERM SCH (08:04)
[2021-06-10] MEDS: Nicotine PATCH 21 MG/24 HR PATCH TRANSDERM SCH (08:05)
[2021-06-10] MEDS: Polyethylene Glycol 3350 17 GM PACKET PO SCH (11:19)
[2021-06-10] MEDS: NEOMYCIN LEFT EYE SCH ×3 (11:24→21:02)
[2021-06-10] MEDS: POLYMYXIN B LEFT EYE SCH ×3 (11:24→21:02)
[2021-06-10] MEDS: HYDROCORTISONE LEFT EYE SCH ×3 (11:24→21:02)
[2021-06-10] MEDS ORDERED: Dextran 70/Hypromellose Tears Eye Drops 15 ml BTL (for Artificials Tears) BOTH EYES PRN (14:53)
[2021-06-10] MEDS: cefTRIAXone 2 GM ADDV.VIAL 2 GM in NS 0.9% 100 ml BAG 100 ML IV SCH (20:59)
[2021-06-10] MEDS: Senna TAB 8.6 mg TAB PO SCH (20:59)
[2021-06-10] MEDS: Lidocaine Patch REMOVE NOTE PATCH OFF SCH (21:02)
[2021-06-11] MEDS: Vancomycin 1,250 MG in NS 0.9% 250 ml 250 ML IVPB SCH ×3 (05:49→21:49)
[2021-06-11] MEDS: Nicotine PATCH 21 MG/24 HR PATCH TRANSDERM SCH (07:25)
[2021-06-11] MEDS: Lidocaine PATCH 5% PATCH TRANSDERM SCH (07:26)
[2021-06-11] MEDS: Polyethylene Glycol 3350 17 GM PACKET PO SCH (08:57)
[2021-06-11] MEDS: POLYMYXIN B LEFT EYE SCH ×3 (09:01→20:10)
[2021-06-11] MEDS: NEOMYCIN LEFT EYE SCH ×3 (09:01→20:10)
[2021-06-11] MEDS: HYDROCORTISONE LEFT EYE SCH ×3 (09:01→20:10)
[2021-06-11] MEDS: cefTRIAXone 2 GM ADDV.VIAL 2 GM in NS 0.9% 100 ml BAG 100 ML IV SCH (19:53)
[2021-06-11] MEDS: Senna TAB 8.6 mg TAB PO SCH (21:19)
[2021-06-11] MEDS: Lidocaine Patch REMOVE NOTE PATCH OFF SCH (21:19)
[2021-06-12] MEDS ORDERED: Vancomycin Trough Check NOTE FOLLOW UP ONE (05:30)
[2021-06-12 05:51] LABS: ABS Eosinophils 0.1 10^3/ul (0-0.6); ABS Lymphocytes 0.7 10^3/ul (1.0-4.8); ABS Monocytes 0.3 10^3/ul (0-0.8); Eosinophil % 1.1 %; Hematocrit 30 % (42-52); Hemoglobin 9.9 g/dL (14.0-18.0); Lymphocyte % 13.6 %; Mean Corpuscular HGB Conc 33 g/dL (31-36); Mean Corpuscular Hemoglobin 25 pg (27-31); Mean Corpuscular Volume 76 fL (80-94); Mean Platelet Volume 7.5 fL (7.4-10.4); Nucleated Red Blood Cells % 0.1; Platelet Count 342 10^3/uL (150-450); Red Blood Count 3.99 10^6 /uL (4.18-5.48); Red Cell Distribution Width 13 % (10-15)
[2021-06-12 06:00] LABS: Albumin 3.7 g/dL (3.2-5.2); CO2 Carbon Dioxide 24 mmol/L (22-32); Calcium 9.6 mg/dL (8.6-10.3); Chloride 94 mmol/L (101-111); Sodium 127 mmol/L (135-145)
[2021-06-12 06:06] LABS: ALT 44 U/L (7-52); Albumin/Globulin Ratio 0.7 (1-3); Alkaline Phosphatase 84 U/L (35-149); Blood Urea Nitrogen 16 mg/dL (6-24); C Reactive Protein 142.25 mg/L (<8.01); Globulin 5.2 g/dL (2-4); Glucose 129 mg/dL (70-100); Total Protein 8.9 g/dL (6.4-8.9); eGFR CKD-EPI 128.6 (>60)
[2021-06-12 06:08] LABS: Anion Gap 9 mmol/L (2-11)
[2021-06-12] MEDS: Vancomycin 1,250 MG in NS 0.9% 250 ml 250 ML IVPB SCH ×3 (06:37→22:00)
[2021-06-12] MEDS: HYDROCORTISONE LEFT EYE SCH ×3 (09:31→20:13)
[2021-06-12] MEDS: POLYMYXIN B LEFT EYE SCH ×3 (09:31→20:13)
[2021-06-12] MEDS: NEOMYCIN LEFT EYE SCH ×3 (09:31→20:13)
[2021-06-12] MEDS: Nicotine PATCH 21 MG/24 HR PATCH TRANSDERM SCH (09:32)
[2021-06-12] MEDS: Lidocaine PATCH 5% PATCH TRANSDERM SCH (09:32)
[2021-06-12] MEDS: Polyethylene Glycol 3350 17 GM PACKET PO SCH (09:33)
[2021-06-12] MEDS: cefTRIAXone 2 GM ADDV.VIAL 2 GM in NS 0.9% 100 ml BAG 100 ML IV SCH (20:13)
[2021-06-12] MEDS: Senna TAB 8.6 mg TAB PO SCH (20:13)
[2021-06-12] MEDS: Lidocaine Patch REMOVE NOTE PATCH OFF SCH (20:20)
[2021-06-13] MEDS: Vancomycin 1,250 MG in NS 0.9% 250 ml 250 ML IVPB SCH ×2 (06:10→14:53)
[2021-06-13] MEDS: HYDROCORTISONE LEFT EYE SCH ×3 (08:25→20:39)
[2021-06-13] MEDS: POLYMYXIN B LEFT EYE SCH ×3 (08:25→20:39)
[2021-06-13] MEDS: NEOMYCIN LEFT EYE SCH ×3 (08:25→20:39)
[2021-06-13] MEDS: Lidocaine PATCH 5% PATCH TRANSDERM SCH (08:27)
[2021-06-13] MEDS: Nicotine PATCH 21 MG/24 HR PATCH TRANSDERM SCH (08:27)
[2021-06-13] MEDS: Polyethylene Glycol 3350 17 GM PACKET PO SCH (08:29)
[2021-06-13] MEDS: cefTRIAXone 2 GM ADDV.VIAL 2 GM in NS 0.9% 100 ml BAG 100 ML IV SCH (20:05)
[2021-06-13] MEDS: Senna TAB 8.6 mg TAB PO SCH (20:40)
[2021-06-13] MEDS: Lidocaine Patch REMOVE NOTE PATCH OFF SCH (20:40)
[2021-06-14] MEDS: Vancomycin 1,250 MG in NS 0.9% 250 ml 250 ML IVPB SCH ×4 (00:11→22:38)
[2021-06-14] MEDS: POLYMYXIN B LEFT EYE SCH ×3 (08:37→20:30)
[2021-06-14] MEDS: HYDROCORTISONE LEFT EYE SCH ×3 (08:37→20:30)
[2021-06-14] MEDS: Nicotine PATCH 21 MG/24 HR PATCH TRANSDERM SCH (08:37)
[2021-06-14] MEDS: Lidocaine PATCH 5% PATCH TRANSDERM SCH (08:37)
[2021-06-14] MEDS: NEOMYCIN LEFT EYE SCH ×3 (08:37→20:30)
[2021-06-14] MEDS: Polyethylene Glycol 3350 17 GM PACKET PO SCH (08:39)
[2021-06-14] MEDS ORDERED: Buffered Lidocaine 1% SYRIN 1 ml INTRADERM ONE (11:05)
[2021-06-14] MEDS: cefTRIAXone 2 GM ADDV.VIAL 2 GM in NS 0.9% 100 ml BAG 100 ML IV SCH (20:14)
[2021-06-14] MEDS: Senna TAB 8.6 mg TAB PO SCH (20:31)
[2021-06-14] MEDS: Lidocaine Patch REMOVE NOTE PATCH OFF SCH (22:35)
[2021-06-15] MEDS: Vancomycin 1,250 MG in NS 0.9% 250 ml 250 ML IVPB SCH ×3 (05:06→23:26)
[2021-06-15] MEDS ORDERED: Vancomycin Trough Check NOTE FOLLOW UP ONE (05:30)
[2021-06-15] MEDS ORDERED: Senna TAB 8.6 mg TAB PO PRN (08:06)
[2021-06-15] MEDS ORDERED: Magnesium Hydroxide LIQ 30 ML UDC PO PRN (08:06)
[2021-06-15] MEDS ORDERED: Polyethylene Glycol 3350 17 GM PACKET PO PRN (08:06)
[2021-06-15 08:59] LABS: Anion Gap 13 mmol/L (2-11); Blood Urea Nitrogen 17 mg/dL (6-24); C Reactive Protein 111.63 mg/L (<8.01); CO2 Carbon Dioxide 21 mmol/L (22-32); Calcium 10.3 mg/dL (8.6-10.3); Chloride 96 mmol/L (101-111); Glucose 123 mg/dL (70-100); Sodium 130 mmol/L (135-145); eGFR CKD-EPI 131.1 (>60)
[2021-06-15] MEDS ORDERED: Voriconazole 200 MG VIAL IV SCH (09:00)
[2021-06-15] MEDS: Polyethylene Glycol 3350 17 GM PACKET PO SCH (10:21)
[2021-06-15] MEDS: Magnesium Hydroxide LIQ 30 ML UDC PO SCH ×2 (10:21→21:05)
[2021-06-15] MEDS: Lidocaine PATCH 5% PATCH TRANSDERM SCH (10:22)
[2021-06-15] MEDS: Nicotine PATCH 21 MG/24 HR PATCH TRANSDERM SCH (10:22)
[2021-06-15] MEDS: NS 0.9% IVPB SCH ×2 (12:44→21:05)
[2021-06-15] MEDS: VORICONAZOLE IVPB SCH ×2 (12:44→21:05)
[2021-06-15] MEDS ORDERED: Iohexol 300 (CONTRAST) 10 ML SDV IV ONE (17:50)
[2021-06-15] MEDS: cefTRIAXone 2 GM ADDV.VIAL 2 GM in NS 0.9% 100 ml BAG 100 ML IV SCH (20:03)
[2021-06-15] MEDS: Lidocaine Patch REMOVE NOTE PATCH OFF SCH (21:04)
[2021-06-15] MEDS: Senna TAB 8.6 mg TAB PO SCH (21:05)
[2021-06-16] MEDS: Vancomycin 1,250 MG in NS 0.9% 250 ml 250 ML IVPB SCH ×2 (05:42→14:44)
[2021-06-16] MEDS: Nicotine PATCH 21 MG/24 HR PATCH TRANSDERM SCH (10:14)
[2021-06-16] MEDS: Magnesium Hydroxide LIQ 30 ML UDC PO SCH ×2 (10:15→21:16)
[2021-06-16] MEDS: Lidocaine PATCH 5% PATCH TRANSDERM SCH (10:16)
[2021-06-16] MEDS: Polyethylene Glycol 3350 17 GM PACKET PO SCH (10:17)
[2021-06-16] MEDS: VORICONAZOLE IVPB SCH ×2 (10:29→22:33)
[2021-06-16] MEDS: NS 0.9% IVPB SCH ×2 (10:29→22:33)
[2021-06-16] MEDS: cefTRIAXone 2 GM ADDV.VIAL 2 GM in NS 0.9% 100 ml BAG 100 ML IV SCH (21:16)
[2021-06-16] MEDS: Senna TAB 8.6 mg TAB PO SCH (21:17)
[2021-06-16] MEDS: Lidocaine Patch REMOVE NOTE PATCH OFF SCH (23:17)
[2021-06-17] MEDS: Vancomycin 1,250 MG in NS 0.9% 250 ml 250 ML IVPB SCH ×4 (00:17→22:20)
[2021-06-17] MEDS ORDERED: Vancomycin Trough Check NOTE FOLLOW UP ONE (06:00)
[2021-06-17] MEDS: Nicotine PATCH 21 MG/24 HR PATCH TRANSDERM SCH (09:02)
[2021-06-17] MEDS: Lidocaine PATCH 5% PATCH TRANSDERM SCH (09:37)
[2021-06-17] MEDS: VORICONAZOLE 50 MG PO SCH ×2 (09:44→22:18)
[2021-06-17] MEDS: Magnesium Hydroxide LIQ 30 ML UDC PO SCH ×2 (11:54→21:03)
[2021-06-17] MEDS: Polyethylene Glycol 3350 17 GM PACKET PO SCH (11:54)
[2021-06-17] MEDS: cefTRIAXone 2 GM ADDV.VIAL 2 GM in NS 0.9% 100 ml BAG 100 ML IV SCH (19:47)
[2021-06-17] MEDS: Lidocaine Patch REMOVE NOTE PATCH OFF SCH (20:19)
[2021-06-17] MEDS: Senna TAB 8.6 mg TAB PO SCH (21:03)
[2021-06-18] MEDS ORDERED: Vancomycin Trough Check NOTE FOLLOW UP ONE (05:30)
[2021-06-18] MEDS: Vancomycin 1,250 MG in NS 0.9% 250 ml 250 ML IVPB SCH ×4 (07:07→22:31)
[2021-06-18] MEDS: Nicotine PATCH 21 MG/24 HR PATCH TRANSDERM SCH (07:18)
[2021-06-18] MEDS: Magnesium Hydroxide LIQ 30 ML UDC PO SCH ×2 (07:21→22:04)
[2021-06-18] MEDS: Lidocaine PATCH 5% PATCH TRANSDERM SCH (07:21)
[2021-06-18] MEDS: Polyethylene Glycol 3350 17 GM PACKET PO SCH (07:25)
[2021-06-18] MEDS: VORICONAZOLE 50 MG PO SCH ×2 (09:39→20:27)
[2021-06-18 14:11] LABS: INR 1.27 (0.86-1.15)
[2021-06-18] MEDS ORDERED: fentaNYL 100 mcg/2 ml 50 MCG/ML VIAL ONE (14:27)
[2021-06-18] MEDS ORDERED: Midazolam 2 mg/2 ml VIAL 1 mg/ml 2 ml VIAL (2 mg) ONE (14:49)
[2021-06-18] MEDS: cefTRIAXone 2 GM ADDV.VIAL 2 GM in NS 0.9% 100 ml BAG 100 ML IV SCH (20:25)
[2021-06-18] MEDS: Senna TAB 8.6 mg TAB PO SCH (20:26)
[2021-06-18] MEDS: Lidocaine Patch REMOVE NOTE PATCH OFF SCH (22:03)
[2021-06-19] MEDS: Vancomycin 1,250 MG in NS 0.9% 250 ml 250 ML IVPB SCH ×3 (05:38→22:35)
[2021-06-19] MEDS: Lidocaine PATCH 5% PATCH TRANSDERM SCH (08:39)
[2021-06-19] MEDS: Nicotine PATCH 21 MG/24 HR PATCH TRANSDERM SCH (08:39)
[2021-06-19] MEDS: Polyethylene Glycol 3350 17 GM PACKET PO SCH (08:40)
[2021-06-19] MEDS: Magnesium Hydroxide LIQ 30 ML UDC PO SCH ×3 (08:40→20:43)
[2021-06-19] MEDS: VORICONAZOLE 50 MG PO SCH ×2 (13:23→20:55)
[2021-06-19 16:50] LABS: ABS Eosinophils 0.1 10^3/ul (0-0.6); ABS Lymphocytes 0.8 10^3/ul (1.0-4.8); ABS Monocytes 0.3 10^3/ul (0-0.8); ABS Neutrophils 2.8 10^3/ul (1.5-7.7); Eosinophil % 2.8 %; Hematocrit 23 % (42-52); Hemoglobin 7.3 g/dL (14.0-18.0); Lymphocyte % 18.9 %; Mean Corpuscular HGB Conc 32 g/dL (31-36); Mean Corpuscular Hemoglobin 25 pg (27-31); Mean Corpuscular Volume 77 fL (80-94); Mean Platelet Volume 7.1 fL (7.4-10.4); Platelet Count 248 10^3/uL (150-450); Red Blood Count 2.93 10^6 /uL (4.18-5.48); Red Cell Distribution Width 14 % (10-15)
[2021-06-19 17:09] LABS: Albumin 3.1 g/dL (3.2-5.2); Calcium 9.4 mg/dL (8.6-10.3); Potassium 4.2 mmol/L (3.5-5.0); Total Bilirubin 0.2 mg/dL (0.2-1.0)
[2021-06-19 17:15] LABS: Albumin/Globulin Ratio 0.8 (1-3); Globulin 3.9 g/dL (2-4); eGFR CKD-EPI 130.4 (>60)
[2021-06-19 18:09] LABS: Vancomycin Trough 26.9 mcg/mL
[2021-06-19] MEDS: Senna TAB 8.6 mg TAB PO SCH (20:41)
[2021-06-19] MEDS: cefTRIAXone 2 GM ADDV.VIAL 2 GM in NS 0.9% 100 ml BAG 100 ML IV SCH (20:42)
[2021-06-19] MEDS: Lidocaine Patch REMOVE NOTE PATCH OFF SCH (20:43)
[2021-06-20] MEDS: Vancomycin 1,250 MG in NS 0.9% 250 ml 250 ML IVPB SCH ×3 (05:53→22:22)
[2021-06-20] MEDS: Nicotine PATCH 21 MG/24 HR PATCH TRANSDERM SCH (07:59)
[2021-06-20] MEDS: Polyethylene Glycol 3350 17 GM PACKET PO SCH (08:00)
[2021-06-20] MEDS: Lidocaine PATCH 5% PATCH TRANSDERM SCH (08:00)
[2021-06-20] MEDS: Magnesium Hydroxide LIQ 30 ML UDC PO SCH (08:00)
[2021-06-20 08:36] LABS: Ferritin 375.1 ng/mL (24-336)
[2021-06-20] MEDS: VORICONAZOLE 50 MG PO SCH ×2 (08:44→21:11)
[2021-06-20 09:06] LABS: Hematocrit 25 % (42-52)
[2021-06-20] MEDS ORDERED: Vancomycin Trough Check NOTE FOLLOW UP ONE (13:30)
[2021-06-20] MEDS: Lidocaine Patch REMOVE NOTE PATCH OFF SCH (20:55)
[2021-06-20] MEDS: Senna TAB 8.6 mg TAB PO SCH (21:12)
[2021-06-21] MEDS: Vancomycin 1,250 MG in NS 0.9% 250 ml 250 ML IVPB SCH ×3 (06:39→22:09)
[2021-06-21] MEDS: Lidocaine PATCH 5% PATCH TRANSDERM SCH (08:26)
[2021-06-21] MEDS: Nicotine PATCH 21 MG/24 HR PATCH TRANSDERM SCH (08:26)
[2021-06-21] MEDS: Polyethylene Glycol 3350 17 GM PACKET PO SCH (08:26)
[2021-06-21] MEDS: VORICONAZOLE 50 MG PO SCH ×2 (08:46→22:00)
[2021-06-21] MEDS: Senna TAB 8.6 mg TAB PO SCH (22:02)
[2021-06-21] MEDS: Lidocaine Patch REMOVE NOTE PATCH OFF SCH (22:02)
[2021-06-22] MEDS: Vancomycin 1,250 MG in NS 0.9% 250 ml 250 ML IVPB SCH ×3 (06:27→22:44)
[2021-06-22] MEDS: Nicotine PATCH 21 MG/24 HR PATCH TRANSDERM SCH (08:53)
[2021-06-22] MEDS: VORICONAZOLE 50 MG PO SCH ×2 (08:56→20:47)
[2021-06-22] MEDS: Lidocaine PATCH 5% PATCH TRANSDERM SCH (08:57)
[2021-06-22] MEDS: Polyethylene Glycol 3350 17 GM PACKET PO SCH (08:57)
[2021-06-22] MEDS: Lidocaine Patch REMOVE NOTE PATCH OFF SCH (20:56)
[2021-06-22] MEDS: Senna TAB 8.6 mg TAB PO SCH (21:03)
[2021-06-23] MEDS ORDERED: Vancomycin Trough Check NOTE FOLLOW UP ONE (06:00)
[2021-06-23 10:50] LABS: eGFR CKD-EPI 125.8 (>60)
[2021-06-23] MEDS: Lidocaine PATCH 5% PATCH TRANSDERM SCH (11:04)
[2021-06-23] MEDS: Nicotine PATCH 21 MG/24 HR PATCH TRANSDERM SCH (11:04)
[2021-06-23] MEDS: Polyethylene Glycol 3350 17 GM PACKET PO SCH (11:05)
[2021-06-23 11:47] LABS: Vancomycin Trough 11.9 mcg/mL
[2021-06-23] MEDS: Vancomycin 1,250 MG in NS 0.9% 250 ml 250 ML IVPB SCH ×3 (12:48→22:19)
[2021-06-23] MEDS: VORICONAZOLE 50 MG PO SCH ×2 (13:27→22:35)
[2021-06-23] MEDS: Senna TAB 8.6 mg TAB PO SCH (20:36)
[2021-06-23] MEDS: Lidocaine Patch REMOVE NOTE PATCH OFF SCH (20:37)
[2021-06-24] MEDS: Vancomycin 1,250 MG in NS 0.9% 250 ml 250 ML IVPB SCH ×3 (04:45→22:10)
[2021-06-24] MEDS: VORICONAZOLE 50 MG PO SCH ×2 (08:37→23:45)
[2021-06-24] MEDS: Polyethylene Glycol 3350 17 GM PACKET PO SCH (09:11)
[2021-06-24] MEDS: Nicotine PATCH 21 MG/24 HR PATCH TRANSDERM SCH (09:11)
[2021-06-24] MEDS: Lidocaine PATCH 5% PATCH TRANSDERM SCH (09:11)
[2021-06-24] MEDS: Senna TAB 8.6 mg TAB PO SCH (20:53)
[2021-06-24] MEDS: Lidocaine Patch REMOVE NOTE PATCH OFF SCH (20:54)
[2021-06-25] MEDS ORDERED: Vancomycin Trough Check NOTE FOLLOW UP ONE (05:30)
[2021-06-25] MEDS: Vancomycin 1,250 MG in NS 0.9% 250 ml 250 ML IVPB SCH ×3 (06:54→22:11)
[2021-06-25] MEDS: VORICONAZOLE 50 MG PO SCH ×2 (09:58→21:19)
[2021-06-25] MEDS: Nicotine PATCH 21 MG/24 HR PATCH TRANSDERM SCH (10:01)
[2021-06-25] MEDS: Lidocaine PATCH 5% PATCH TRANSDERM SCH (10:03)
[2021-06-25] MEDS: Polyethylene Glycol 3350 17 GM PACKET PO SCH (10:03)
[2021-06-25] MEDS: Senna TAB 8.6 mg TAB PO SCH (21:13)
[2021-06-25] MEDS: Lidocaine Patch REMOVE NOTE PATCH OFF SCH (21:23)
[2021-06-26] MEDS: Nicotine PATCH 21 MG/24 HR PATCH TRANSDERM SCH (07:32)
[2021-06-26] MEDS: Lidocaine PATCH 5% PATCH TRANSDERM SCH (07:32)
[2021-06-26] MEDS: VORICONAZOLE 50 MG PO SCH ×2 (09:20→20:53)
[2021-06-26] MEDS: Polyethylene Glycol 3350 17 GM PACKET PO SCH (10:14)
[2021-06-26] MEDS: Vancomycin 1,250 MG in NS 0.9% 250 ml 250 ML IVPB SCH ×3 (17:49→23:00)
[2021-06-26] MEDS: Lidocaine Patch REMOVE NOTE PATCH OFF SCH (20:54)
[2021-06-26] MEDS: Senna TAB 8.6 mg TAB PO SCH (20:54)
[2021-06-27] MEDS: Vancomycin 1,250 MG in NS 0.9% 250 ml 250 ML IVPB SCH ×3 (02:50→18:07)
[2021-06-27 05:36] LABS: ABS Eosinophils 0.2 10^3/ul (0-0.6); ABS Lymphocytes 1.3 10^3/ul (1.0-4.8); ABS Monocytes 0.4 10^3/ul (0-0.8); ABS Neutrophils 3.2 10^3/ul (1.5-7.7); Eosinophil % 3.1 %; Hematocrit 28 % (42-52); Lymphocyte % 25.4 %; Mean Corpuscular HGB Conc 32 g/dL (31-36); Mean Corpuscular Hemoglobin 25 pg (27-31); Mean Corpuscular Volume 78 fL (80-94); Mean Platelet Volume 7.1 fL (7.4-10.4); Nucleated Red Blood Cells % 0.1; Platelet Count 272 10^3/uL (150-450); Red Blood Count 3.63 10^6 /uL (4.18-5.48); Red Cell Distribution Width 16 % (10-15); White Blood Count 5.2 10^3/uL (3.5-10.8)
[2021-06-27 05:54] LABS: Albumin 3.3 g/dL (3.2-5.2); Albumin/Globulin Ratio 0.8 (1-3); Calcium 9.7 mg/dL (8.6-10.3); Globulin 3.9 g/dL (2-4); Total Bilirubin 0.3 mg/dL (0.2-1.0); Total Protein 7.2 g/dL (6.4-8.9); eGFR CKD-EPI 129.8 (>60)
[2021-06-27] MEDS: Nicotine PATCH 21 MG/24 HR PATCH TRANSDERM SCH (09:22)
[2021-06-27] MEDS: Polyethylene Glycol 3350 17 GM PACKET PO SCH (09:22)
[2021-06-27] MEDS: Lidocaine PATCH 5% PATCH TRANSDERM SCH (09:22)
[2021-06-27] MEDS: VORICONAZOLE 50 MG PO SCH ×2 (09:24→21:08)
[2021-06-27] MEDS: Senna TAB 8.6 mg TAB PO SCH (21:09)
[2021-06-27] MEDS: Lidocaine Patch REMOVE NOTE PATCH OFF SCH (21:09)
[2021-06-28] MEDS: Vancomycin 1,250 MG in NS 0.9% 250 ml 250 ML IVPB SCH ×3 (01:50→17:32)
[2021-06-28] MEDS: Nicotine PATCH 21 MG/24 HR PATCH TRANSDERM SCH (09:26)
[2021-06-28] MEDS: Lidocaine PATCH 5% PATCH TRANSDERM SCH (09:26)
[2021-06-28] MEDS: Polyethylene Glycol 3350 17 GM PACKET PO SCH (09:27)
[2021-06-28] MEDS: VORICONAZOLE 50 MG PO SCH ×2 (09:28→20:22)
[2021-06-28 12:40] LABS: Albumin 3.4 g/dL (3.2-5.2); Albumin/Globulin Ratio 0.8 (1-3); Calcium 9.8 mg/dL (8.6-10.3); Globulin 4.1 g/dL (2-4); Total Bilirubin 0.3 mg/dL (0.2-1.0); Total Protein 7.5 g/dL (6.4-8.9)
[2021-06-28] MEDS: Senna TAB 8.6 mg TAB PO SCH (20:24)
[2021-06-28] MEDS: Lidocaine Patch REMOVE NOTE PATCH OFF SCH (20:24)
[2021-06-29] MEDS: Vancomycin 1,250 MG in NS 0.9% 250 ml 250 ML IVPB SCH ×3 (01:39→17:23)
[2021-06-29 05:24] LABS: Albumin 3.2 g/dL (3.2-5.2); Albumin/Globulin Ratio 0.8 (1-3); Calcium 9.6 mg/dL (8.6-10.3); Potassium 3.9 mmol/L (3.5-5.0); Total Bilirubin 0.3 mg/dL (0.2-1.0); Total Protein 7.2 g/dL (6.4-8.9); eGFR CKD-EPI 125.8 (>60)
[2021-06-29] MEDS: Nicotine PATCH 21 MG/24 HR PATCH TRANSDERM SCH (08:14)
[2021-06-29] MEDS: Lidocaine PATCH 5% PATCH TRANSDERM SCH (08:27)
[2021-06-29] MEDS: Polyethylene Glycol 3350 17 GM PACKET PO SCH (08:28)
[2021-06-29] MEDS: VORICONAZOLE 50 MG PO SCH ×2 (08:33→20:49)
[2021-06-29] MEDS ORDERED: Vancomycin Trough Check NOTE FOLLOW UP ONE (09:30)
[2021-06-29] MEDS: Lidocaine Patch REMOVE NOTE PATCH OFF SCH (19:42)
[2021-06-29] MEDS: Senna TAB 8.6 mg TAB PO SCH (19:42)
[2021-06-30] MEDS: Vancomycin 1,250 MG in NS 0.9% 250 ml 250 ML IVPB SCH ×3 (01:36→18:02)
[2021-06-30] MEDS: Nicotine PATCH 21 MG/24 HR PATCH TRANSDERM SCH (07:15)
[2021-06-30] MEDS: Lidocaine PATCH 5% PATCH TRANSDERM SCH (10:29)
[2021-06-30] MEDS: Polyethylene Glycol 3350 17 GM PACKET PO SCH (10:29)
[2021-06-30] MEDS: VORICONAZOLE 50 MG PO SCH ×2 (10:32→20:10)
[2021-06-30] MEDS: Lidocaine Patch REMOVE NOTE PATCH OFF SCH (22:27)
[2021-06-30] MEDS: Senna TAB 8.6 mg TAB PO SCH (22:28)
[2021-07-01] MEDS: Vancomycin 1,250 MG in NS 0.9% 250 ml 250 ML IVPB SCH ×3 (02:05→18:30)
[2021-07-01] MEDS: Nicotine PATCH 21 MG/24 HR PATCH TRANSDERM SCH (07:58)
[2021-07-01] MEDS: Lidocaine PATCH 5% PATCH TRANSDERM SCH (08:31)
[2021-07-01] MEDS: Polyethylene Glycol 3350 17 GM PACKET PO SCH (08:32)
[2021-07-01] MEDS: VORICONAZOLE 50 MG PO SCH ×2 (08:33→21:11)
[2021-07-01] MEDS: Lidocaine Patch REMOVE NOTE PATCH OFF SCH (20:43)
[2021-07-01] MEDS: Senna TAB 8.6 mg TAB PO SCH (21:10)
[2021-07-02] MEDS: Vancomycin 1,250 MG in NS 0.9% 250 ml 250 ML IVPB SCH ×3 (03:45→17:36)
[2021-07-02] MEDS: Nicotine PATCH 21 MG/24 HR PATCH TRANSDERM SCH (08:01)
[2021-07-02] MEDS: Polyethylene Glycol 3350 17 GM PACKET PO SCH (08:01)
[2021-07-02] MEDS: Lidocaine PATCH 5% PATCH TRANSDERM SCH (08:01)
[2021-07-02] MEDS: VORICONAZOLE 50 MG PO SCH ×2 (09:34→20:28)
[2021-07-02] MEDS: Senna TAB 8.6 mg TAB PO SCH (20:18)
[2021-07-02] MEDS: Lidocaine Patch REMOVE NOTE PATCH OFF SCH (20:18)
[2021-07-03] MEDS: Vancomycin 1,250 MG in NS 0.9% 250 ml 250 ML IVPB SCH ×3 (03:04→17:52)
[2021-07-03] MEDS: Lidocaine PATCH 5% PATCH TRANSDERM SCH (08:34)
[2021-07-03] MEDS: Nicotine PATCH 21 MG/24 HR PATCH TRANSDERM SCH (08:34)
[2021-07-03] MEDS: Polyethylene Glycol 3350 17 GM PACKET PO SCH (08:34)
[2021-07-03] MEDS: VORICONAZOLE 50 MG PO SCH ×2 (08:52→21:50)
[2021-07-03] MEDS ORDERED: Iohexol 350 (CONTRAST) 500 ML MDV IV ONE (14:38)
[2021-07-03] MEDS: Alteplase (CATHFLO) 2 MG VIAL IV ONE ×2 (17:27→21:02)
[2021-07-03] MEDS: Lidocaine Patch REMOVE NOTE PATCH OFF SCH (21:50)
[2021-07-03] MEDS: Senna TAB 8.6 mg TAB PO SCH (21:50)
[2021-07-04] MEDS: Vancomycin 1,250 MG in NS 0.9% 250 ml 250 ML IVPB SCH ×3 (01:59→18:21)
[2021-07-04] MEDS: Nicotine PATCH 21 MG/24 HR PATCH TRANSDERM SCH (10:07)
[2021-07-04] MEDS: VORICONAZOLE 50 MG PO SCH ×2 (10:08→21:38)
[2021-07-04] MEDS: Lidocaine PATCH 5% PATCH TRANSDERM SCH (10:08)
[2021-07-04] MEDS: Polyethylene Glycol 3350 17 GM PACKET PO SCH (10:08)
[2021-07-04] MEDS: Senna TAB 8.6 mg TAB PO SCH (21:38)
[2021-07-04] MEDS: CMCS:Ketorolac 0.5% OPHTH (NF) 0.5 % 5 ML BTL RIGHT EYE SCH (21:41)
[2021-07-04] MEDS: Lidocaine Patch REMOVE NOTE PATCH OFF SCH (22:03)
[2021-07-05] MEDS: Vancomycin 1,250 MG in NS 0.9% 250 ml 250 ML IVPB SCH ×3 (03:16→17:29)
[2021-07-05] MEDS: Nicotine PATCH 21 MG/24 HR PATCH TRANSDERM SCH (08:07)
[2021-07-05] MEDS: Polyethylene Glycol 3350 17 GM PACKET PO SCH (09:09)
[2021-07-05] MEDS: Lidocaine PATCH 5% PATCH TRANSDERM SCH (09:09)
[2021-07-05] MEDS: VORICONAZOLE 50 MG PO SCH ×2 (09:10→21:37)
[2021-07-05] MEDS: CMCS:Ketorolac 0.5% OPHTH (NF) 0.5 % 5 ML BTL RIGHT EYE SCH ×2 (09:10→21:39)
[2021-07-05] MEDS: Lidocaine Patch REMOVE NOTE PATCH OFF SCH (21:33)
[2021-07-05] MEDS: Senna TAB 8.6 mg TAB PO SCH (21:43)
[2021-07-06] MEDS: Vancomycin 1,250 MG in NS 0.9% 250 ml 250 ML IVPB SCH ×3 (02:37→18:42)
[2021-07-06 06:04] LABS: ABS Eosinophils 0.2 10^3/ul (0-0.6); ABS Lymphocytes 0.9 10^3/ul (1.0-4.8); ABS Monocytes 0.4 10^3/ul (0-0.8); ABS Neutrophils 3.5 10^3/ul (1.5-7.7); Eosinophil % 3.8 %; Hematocrit 27 % (42-52); Hemoglobin 8.8 g/dL (14.0-18.0); Lymphocyte % 18.4 %; Mean Corpuscular HGB Conc 32 g/dL (31-36); Mean Corpuscular Hemoglobin 24 pg (27-31); Mean Corpuscular Volume 76 fL (80-94); Mean Platelet Volume 7.4 fL (7.4-10.4); Platelet Count 226 10^3/uL (150-450); Red Cell Distribution Width 17 % (10-15); White Blood Count 5.1 10^3/uL (3.5-10.8)
[2021-07-06 06:24] LABS: Albumin 3.4 g/dL (3.2-5.2); Globulin 4.4 g/dL (2-4); Potassium 4.1 mmol/L (3.5-5.0); Total Protein 7.8 g/dL (6.4-8.9); eGFR CKD-EPI 131.7 (>60)
[2021-07-06 06:25] LABS: Albumin/Globulin Ratio 0.8 (1-3); C Reactive Protein 79.69 mg/L (<8.01); Total Bilirubin 0.3 mg/dL (0.2-1.0)
[2021-07-06] MEDS: Nicotine PATCH 21 MG/24 HR PATCH TRANSDERM SCH (07:15)
[2021-07-06] MEDS: Lidocaine PATCH 5% PATCH TRANSDERM SCH (07:15)
[2021-07-06] MEDS: Polyethylene Glycol 3350 17 GM PACKET PO SCH (08:26)
[2021-07-06] MEDS: VORICONAZOLE 50 MG PO SCH ×2 (09:22→20:43)
[2021-07-06] MEDS: CMCS:Ketorolac 0.5% OPHTH (NF) 0.5 % 5 ML BTL RIGHT EYE SCH ×2 (09:22→20:50)
[2021-07-06] MEDS ORDERED: Vancomycin Trough Check NOTE FOLLOW UP ONE (09:30)
[2021-07-06] MEDS: Senna TAB 8.6 mg TAB PO SCH (20:49)
[2021-07-06] MEDS: Lidocaine Patch REMOVE NOTE PATCH OFF SCH (20:49)
[2021-07-07] MEDS: Vancomycin 1,250 MG in NS 0.9% 250 ml 250 ML IVPB SCH ×3 (02:42→18:36)
[2021-07-07] MEDS: Nicotine PATCH 21 MG/24 HR PATCH TRANSDERM SCH (07:23)
[2021-07-07] MEDS: Polyethylene Glycol 3350 17 GM PACKET PO SCH (07:24)
[2021-07-07] MEDS: Lidocaine PATCH 5% PATCH TRANSDERM SCH (07:24)
[2021-07-07] MEDS: CMCS:Ketorolac 0.5% OPHTH (NF) 0.5 % 5 ML BTL RIGHT EYE SCH ×2 (09:07→20:11)
[2021-07-07] MEDS: VORICONAZOLE 50 MG PO SCH ×2 (09:08→20:07)
[2021-07-07] MEDS: Lidocaine Patch REMOVE NOTE PATCH OFF SCH (20:16)
[2021-07-07] MEDS: Senna TAB 8.6 mg TAB PO SCH (20:16)
[2021-07-08] MEDS: Vancomycin 1,250 MG in NS 0.9% 250 ml 250 ML IVPB SCH ×3 (01:54→18:16)
[2021-07-08] MEDS ORDERED: Buprenorphine 2 mg SL TAB SL ONE (08:00)
[2021-07-08] MEDS: VORICONAZOLE 50 MG PO SCH ×2 (08:53→20:58)
[2021-07-08] MEDS: CMCS:Ketorolac 0.5% OPHTH (NF) 0.5 % 5 ML BTL RIGHT EYE SCH ×2 (08:55→22:32)
[2021-07-08] MEDS: Lidocaine PATCH 5% PATCH TRANSDERM SCH (09:01)
[2021-07-08] MEDS: Nicotine PATCH 21 MG/24 HR PATCH TRANSDERM SCH (09:01)
[2021-07-08] MEDS: Polyethylene Glycol 3350 17 GM PACKET PO SCH (09:01)
[2021-07-08] MEDS: Senna TAB 8.6 mg TAB PO SCH (20:57)
[2021-07-08] MEDS: Lidocaine Patch REMOVE NOTE PATCH OFF SCH (21:05)
[2021-07-09] MEDS: Vancomycin 1,250 MG in NS 0.9% 250 ml 250 ML IVPB SCH ×3 (02:55→18:47)
[2021-07-09] MEDS: Nicotine PATCH 21 MG/24 HR PATCH TRANSDERM SCH (09:33)
[2021-07-09] MEDS: Lidocaine PATCH 5% PATCH TRANSDERM SCH (09:34)
[2021-07-09] MEDS: Polyethylene Glycol 3350 17 GM PACKET PO SCH (09:35)
[2021-07-09] MEDS: VORICONAZOLE 50 MG PO SCH ×2 (09:43→20:12)
[2021-07-09] MEDS: Buprenorphine 2 mg SL TAB SL SCH ×3 (09:43→23:17)
[2021-07-09] MEDS: CMCS:Ketorolac 0.5% OPHTH (NF) 0.5 % 5 ML BTL RIGHT EYE SCH ×2 (09:44→20:16)
[2021-07-09] MEDS: Senna TAB 8.6 mg TAB PO SCH (20:14)
[2021-07-10] MEDS: Vancomycin 1,250 MG in NS 0.9% 250 ml 250 ML IVPB SCH ×3 (02:15→17:58)
[2021-07-10] MEDS: Nicotine PATCH 21 MG/24 HR PATCH TRANSDERM SCH (09:59)
[2021-07-10] MEDS: VORICONAZOLE 50 MG PO SCH ×2 (10:18→21:54)
[2021-07-10] MEDS: Polyethylene Glycol 3350 17 GM PACKET PO SCH (10:19)
[2021-07-10] MEDS: Lidocaine PATCH 5% PATCH TRANSDERM SCH (10:19)
[2021-07-10] MEDS: CMCS:Ketorolac 0.5% OPHTH (NF) 0.5 % 5 ML BTL RIGHT EYE SCH ×2 (10:34→21:54)
[2021-07-10] MEDS ORDERED: Buprenorphine 2 mg SL TAB ONE ×2 (14:10→14:20)
[2021-07-10] MEDS: Buprenorphine 2 mg SL TAB SL SCH (14:15)
[2021-07-10] MEDS: Senna TAB 8.6 mg TAB PO SCH (22:03)
[2021-07-11] MEDS ORDERED: Buprenorphine 2 mg SL TAB SL ONE (01:05)
[2021-07-11] MEDS: Buprenorphine 2 mg SL TAB SL SCH ×2 (01:09→09:31)
[2021-07-11] MEDS: Vancomycin 1,250 MG in NS 0.9% 250 ml 250 ML IVPB SCH ×3 (01:41→18:06)
[2021-07-11] MEDS: Nicotine PATCH 21 MG/24 HR PATCH TRANSDERM SCH (09:21)
[2021-07-11] MEDS: VORICONAZOLE 50 MG PO SCH ×2 (09:27→21:12)
[2021-07-11] MEDS: Lidocaine PATCH 5% PATCH TRANSDERM SCH (09:28)
[2021-07-11] MEDS: Polyethylene Glycol 3350 17 GM PACKET PO SCH (09:29)
[2021-07-11] MEDS: CMCS:Ketorolac 0.5% OPHTH (NF) 0.5 % 5 ML BTL RIGHT EYE SCH ×2 (09:32→21:12)
[2021-07-11] MEDS: Senna TAB 8.6 mg TAB PO SCH (21:12)
[2021-07-12] MEDS ORDERED: Buprenorphine 2 mg SL TAB SL ONE (01:00)
[2021-07-12] MEDS: Buprenorphine 2 mg SL TAB SL SCH ×3 (01:02→10:10)
[2021-07-12] MEDS: Vancomycin 1,250 MG in NS 0.9% 250 ml 250 ML IVPB SCH ×3 (01:33→18:05)
[2021-07-12] MEDS: Nicotine PATCH 21 MG/24 HR PATCH TRANSDERM SCH (08:02)
[2021-07-12] MEDS: Lidocaine PATCH 5% PATCH TRANSDERM SCH (08:02)
[2021-07-12] MEDS: Polyethylene Glycol 3350 17 GM PACKET PO SCH (08:02)
[2021-07-12] MEDS: VORICONAZOLE 50 MG PO SCH ×2 (08:15→19:54)
[2021-07-12] MEDS: CMCS:Ketorolac 0.5% OPHTH (NF) 0.5 % 5 ML BTL RIGHT EYE SCH ×2 (08:15→19:57)
[2021-07-12] MEDS: Senna TAB 8.6 mg TAB PO SCH (19:56)
[2021-07-13] MEDS ORDERED: Buprenorphine 2 mg SL TAB SL ONE
[2021-07-13] MEDS: Buprenorphine 2 mg SL TAB SL SCH (00:16)
[2021-07-13] MEDS: Vancomycin 1,250 MG in NS 0.9% 250 ml 250 ML IVPB SCH ×3 (03:01→21:44)
[2021-07-13] MEDS: VORICONAZOLE 50 MG PO SCH ×2 (08:45→21:47)
[2021-07-13] MEDS: Lidocaine PATCH 5% PATCH TRANSDERM SCH (08:47)
[2021-07-13] MEDS: Polyethylene Glycol 3350 17 GM PACKET PO SCH (08:47)
[2021-07-13] MEDS: CMCS:Ketorolac 0.5% OPHTH (NF) 0.5 % 5 ML BTL RIGHT EYE SCH ×2 (08:50→21:45)
[2021-07-13] MEDS: Nicotine PATCH 21 MG/24 HR PATCH TRANSDERM SCH (08:52)
[2021-07-13] MEDS ORDERED: Alteplase (CATHFLO) 2 MG VIAL IV ONE (08:55)
[2021-07-13 14:25] LABS: Vancomycin Trough 21.5 mcg/mL
[2021-07-13 19:04] LABS: eGFR CKD-EPI 125.3 (>60)
[2021-07-13] MEDS: Senna TAB 8.6 mg TAB PO SCH (21:30)
[2021-07-14] MEDS: Lidocaine PATCH 5% PATCH TRANSDERM SCH (07:05)
[2021-07-14] MEDS: Polyethylene Glycol 3350 17 GM PACKET PO SCH (07:05)
[2021-07-14] MEDS: Nicotine PATCH 21 MG/24 HR PATCH TRANSDERM SCH (07:05)
[2021-07-14] MEDS: Vancomycin 1,250 MG in NS 0.9% 250 ml 250 ML IVPB SCH ×2 (08:58→21:05)
[2021-07-14] MEDS: VORICONAZOLE 50 MG PO SCH ×2 (09:02→21:06)
[2021-07-14] MEDS: CMCS:Ketorolac 0.5% OPHTH (NF) 0.5 % 5 ML BTL RIGHT EYE SCH ×2 (09:08→21:05)
[2021-07-14 12:28] LABS: Hematocrit 26 % (42-52); Hemoglobin 8.5 g/dL (14.0-18.0); Mean Corpuscular HGB Conc 33 g/dL (31-36); Mean Corpuscular Hemoglobin 25 pg (27-31); Mean Corpuscular Volume 74 fL (80-94); Mean Platelet Volume 7.2 fL (7.4-10.4); Platelet Count 206 10^3/uL (150-450); Red Blood Count 3.47 10^6 /uL (4.18-5.48); Red Cell Distribution Width 17 % (10-15); White Blood Count 5.6 10^3/uL (3.5-10.8)
[2021-07-14 12:36] LABS: Albumin 3.2 g/dL (3.2-5.2); Albumin/Globulin Ratio 0.8 (1-3); Calcium 9.3 mg/dL (8.6-10.3); Globulin 4.1 g/dL (2-4); Total Bilirubin 0.3 mg/dL (0.2-1.0); Total Protein 7.3 g/dL (6.4-8.9); eGFR CKD-EPI 123.7 (>60)
[2021-07-14 12:40] LABS: INR 1.45 (0.86-1.15)
[2021-07-14 12:49] LABS: Anisocytosis 1+
[2021-07-14 12:50] LABS: ABS Eosinophils 0.2 10^3/ul (0-0.6); ABS Lymphocytes 0.8 10^3/ul (1.0-4.8); ABS Monocytes 0.4 10^3/ul (0-0.8); ABS Neutrophils 4.1 10^3/ul (1.5-7.7); Eosinophil % 3.8 %; Lymphocyte % 14.1 %
[2021-07-14 15:10] LABS: HIV 4th Generation Nonreactive (Nonreactive)
[2021-07-14] MEDS: Senna TAB 8.6 mg TAB PO SCH (21:18)
[2021-07-14 22:39] LABS: Hepatitis B Surface Antigen Nonreactive (Nonreactive)
[2021-07-14 22:56] LABS: Hepatitis B Surface Ab Not Immune (Immune)
[2021-07-15 06:24] VITALS: BP 121/63
[2021-07-15] MEDS: Nicotine PATCH 21 MG/24 HR PATCH TRANSDERM SCH (08:35)
[2021-07-15] MEDS: Lidocaine PATCH 5% PATCH TRANSDERM SCH (08:36)
[2021-07-15] MEDS: Polyethylene Glycol 3350 17 GM PACKET PO SCH (08:36)
[2021-07-15] MEDS: Vancomycin 1,250 MG in NS 0.9% 250 ml 250 ML IVPB SCH (08:46)
[2021-07-15] MEDS: VORICONAZOLE 50 MG PO SCH (08:49)
[2021-07-15 09:24] LABS: C Reactive Protein 81.43 mg/L (<8.01); Total Iron Binding Capacity 238 mcg/dL (250-450); Transferrin 170 mg/dL (203-362)
[2021-07-15 09:30] LABS: % Iron Saturation 8 % (15-55); Iron < 20 ug/dL (50-212); Unsaturated Iron Binding 218 ug/dL
[2021-07-15 09:44] LABS: Ferritin 324.7 ng/mL (24-336)
[2021-07-15] MEDS: CMCS:Ketorolac 0.5% OPHTH (NF) 0.5 % 5 ML BTL RIGHT EYE SCH (11:04)
[2021-07-16 00:11] LABS: Hepatitis C RNA Quantitative 1100000 IU/mL (Undetected)
[2021-07-16 10:36] LABS: ActiTest Interpretation minimal activity; Alanine Aminotransferase (ALT) 65 U/L (7-55); Alpha-2-Macroglobulin, S 175 mg/dL (100 - 280); Apolipoprotein A1, S 86 mg/dL (>=120); Bilirubin, Total, S 0.3 mg/dL (<=1.2); BioPredictive Serial Number 3758919; FibroTest Interpretation minimal fibrosis; Gamma Glutamyltransferase GGT 740 U/L (8 - 61); Haptoglobin, S 203 mg/dL (30 - 200)
[2021-07-17 18:07] LABS: Hepatitis C Genotype 1b (Undetected)
[2021-07-20] MEDS ORDERED: Vancomycin Trough Check NOTE FOLLOW UP ONE (08:30)
== END 2021-07-15 18:00 | disposition home or self-care (01) | DRG 347 ==
LOC: SUATTDRO 12:09 → MEDTELE 12:09 → SSU 06-06 15:11
PROVIDERS: ADMIT Student in an Organized Health Care Education/Training Program; ATTEND Internal Medicine

== ENCOUNTER 2021-07-27 22:22 | Observation (INO) ==
[2021-07-27 23:50] LABS: Hematocrit 27 % (42-52); Mean Corpuscular HGB Conc 34 g/dL (31-36); Mean Corpuscular Hemoglobin 25 pg (27-31); Mean Corpuscular Volume 75 fL (80-94); Red Cell Distribution Width 19 % (10-15); White Blood Count 5.8 10^3/uL (3.5-10.8)
[2021-07-28] LABS: Albumin 4.2 g/dL (3.2-5.2); CO2 Carbon Dioxide 28 mmol/L (22-32); Chloride 97 mmol/L (101-111); Sodium 133 mmol/L (135-145)
[2021-07-28 00:05] LABS: Blood Urea Nitrogen 15 mg/dL (6-24); Globulin 4.7 g/dL (2-4); Glucose 95 mg/dL (70-100); Total Protein 8.9 g/dL (6.4-8.9); eGFR CKD-EPI 125.8 (>60)
[2021-07-28 00:06] LABS: ALT 20 U/L (7-52); Albumin/Globulin Ratio 0.9 (1-3); Alkaline Phosphatase 215 U/L (35-149); C Reactive Protein 35.23 mg/L (<8.01)
[2021-07-28 00:12] LABS: Anion Gap 8 mmol/L (2-11)
[2021-07-28] MEDS ORDERED: Iohexol 300 (CONTRAST) 10 ML SDV IV ONE (00:12)
[2021-07-28 00:28] LABS: ABS Basophils 0.1 10^3/ul (0-0.2); ABS Eosinophils 0.2 10^3/ul (0-0.6); ABS Lymphocytes 1.4 10^3/ul (1.0-4.8); ABS Monocytes 0.4 10^3/ul (0-0.8); ABS Neutrophils 3.7 10^3/ul (1.5-7.7); Eosinophil % 3.1 %; Lymphocyte % 24.4 %; Mean Platelet Volume 7.8 fL (7.4-10.4); Nucleated Red Blood Cells % 0.3; Platelet Count 281 10^3/uL (150-450)
[2021-07-28 01:23] LABS: Erythrocyte Sed Rate 40 mm/Hr (0-14)
[2021-07-28] MEDS ORDERED: Senna TAB 8.6 mg TAB PO PRN (02:26)
[2021-07-28] MEDS ORDERED: Polyethylene Glycol 3350 17 GM PACKET PO PRN (02:26)
[2021-07-28 03:32] LABS: Alcohol, S < 13 mg/dL (<13)
[2021-07-28 05:09] LABS: Urine Appearance Clear; Urine Bilirubin Negative (Negative); Urine Blood Negative (Negative); Urine Color Yellow; Urine Glucose Negative (Negative); Urine Ketones Negative (Negative); Urine Nitrite Negative (Negative); Urine Protein Negative (Negative); Urine Specific Gravity 1.016 (1.002-1.030); Urine Urobilinogen Negative (Negative)
[2021-07-28 05:28] LABS: Urine Benzodiazepine Screen None Detected (None Detect); Urine Cannabinoids Screen None Detected (None Detect); Urine Opiates Screen None Detected (None Detect)
[2021-07-28] MEDS ORDERED: DOXYCYCLINE MONOHYDRATE 100 MG PO SCH (09:00)
[2021-07-28] MEDS: CMCS: Ketorolac 0.5% OPHTH (NF) 0.5 % 5 ML BTL RIGHT EYE SCH ×2 (09:03→21:10)
[2021-07-28] MEDS ORDERED: Naloxone Nasal Spray 4 MG/0.1 ML NASAL.SPR INTRANASAL PRN (09:58)
[2021-07-28] MEDS: Nicotine PATCH 14 MG/24 HR PATCH TRANSDERM SCH (10:21)
[2021-07-28 11:39] LABS: ABS Basophils 0.1 10^3/ul (0-0.2); ABS Eosinophils 0.2 10^3/ul (0-0.6); ABS Lymphocytes 1.2 10^3/ul (1.0-4.8); ABS Monocytes 0.3 10^3/ul (0-0.8); Eosinophil % 3.7 %; Hematocrit 33 % (42-52); Lymphocyte % 26.2 %; Mean Corpuscular HGB Conc 34 g/dL (31-36); Mean Corpuscular Hemoglobin 25 pg (27-31); Mean Corpuscular Volume 74 fL (80-94); Mean Platelet Volume 7.4 fL (7.4-10.4); Nucleated Red Blood Cells % 0.1; Platelet Count 356 10^3/uL (150-450); Red Blood Count 4.45 10^6 /uL (4.18-5.48); Red Cell Distribution Width 19 % (10-15); White Blood Count 4.7 10^3/uL (3.5-10.8)
[2021-07-28] MEDS: Voriconazole 50 mg TAB (NF) PO SCH ×2 (11:53→23:32)
[2021-07-28 12:01] LABS: Potassium Redraw 3.6 mmol/L (3.5-5.0)
[2021-07-28 12:05] LABS: Albumin/Globulin Ratio 0.9 (1-3); Globulin 4.4 g/dL (2-4); Magnesium 1.7 mg/dL (1.9-2.7); Potassium 3.6 mmol/L (3.5-5.0); Total Bilirubin 0.6 mg/dL (0.2-1.0); Total Protein 8.4 g/dL (6.4-8.9); eGFR CKD-EPI 122.7 (>60)
[2021-07-28] MEDS ORDERED: Magnesium Sulfate IV 3 GM in NS 0.9% 100 ml BAG 100 ML IVPB ONE (13:38)
[2021-07-28] MEDS: HYDROmorphone 1 MG/1 ML SYRINGE IV SLOW PU PRN ×2 (13:50→20:58)
[2021-07-28] MEDS ORDERED: Magnesium Sulfate 2 GM IV (Premix) IVPB ONE (15:00)
[2021-07-28] MEDS ORDERED: Vancomycin per Pharmacy 1 EA NOTE FOLLOW UP PRN (15:42)
[2021-07-28] MEDS ORDERED: Vancomycin 1,250 MG in NS 0.9% 250 ml 250 ML IVPB ONE (16:00)
[2021-07-28] MEDS ORDERED: Magnesium Sulfate 1 GM IV 1 GM/100 ML BAG IV ONE (16:00)
[2021-07-28] MEDS ORDERED: Gadoteridol (CONTRAST) 279.3 MG/ML 10 ML IV ONE (18:47)
[2021-07-29] MEDS: HYDROmorphone 1 MG/1 ML SYRINGE IV SLOW PU PRN ×2 (01:09→08:39)
[2021-07-29] MEDS ORDERED: Vancomycin 1,250 MG in NS 0.9% 250 ml 250 ML IVPB SCH (08:00)
[2021-07-29] MEDS ORDERED: Nicotine GUM 4MG FRUIT FLAVOR PO PRN (08:46)
[2021-07-29] MEDS: CMCS: Ketorolac 0.5% OPHTH (NF) 0.5 % 5 ML BTL RIGHT EYE SCH ×2 (10:49→20:28)
[2021-07-29] MEDS: Nicotine PATCH 14 MG/24 HR PATCH TRANSDERM SCH (10:49)
[2021-07-29] MEDS: Lidocaine PATCH 5% PATCH TRANSDERM SCH (10:49)
[2021-07-29] MEDS: Polyethylene Glycol 3350 17 GM PACKET PO SCH (12:11)
[2021-07-29 12:38] LABS: Hematocrit 31 % (42-52); Hemoglobin 10.7 g/dL (14.0-18.0); Mean Corpuscular HGB Conc 34 g/dL (31-36); Mean Corpuscular Hemoglobin 25 pg (27-31); Mean Corpuscular Volume 73 fL (80-94); Mean Platelet Volume 7.5 fL (7.4-10.4); Platelet Count 312 10^3/uL (150-450); Red Blood Count 4.28 10^6 /uL (4.18-5.48); Red Cell Distribution Width 19 % (10-15); White Blood Count 4.5 10^3/uL (3.5-10.8)
[2021-07-29] MEDS ORDERED: fentaNYL 100 mcg/2 ml 50 MCG/ML VIAL ONE (12:44)
[2021-07-29 12:46] LABS: INR 1.62 (0.86-1.15)
[2021-07-29 12:50] LABS: Calcium 10.5 mg/dL (8.6-10.3); Magnesium 1.9 mg/dL (1.9-2.7); Potassium 3.8 mmol/L (3.5-5.0)
[2021-07-29 12:56] LABS: eGFR CKD-EPI 121.3 (>60)
[2021-07-29] MEDS ORDERED: Senna TAB 8.6 mg TAB PO SCH (21:00)
[2021-07-30] MEDS ORDERED: Vancomycin Trough Check NOTE FOLLOW UP ONE (07:30)
[2021-07-30] MEDS: Lidocaine PATCH 5% PATCH TRANSDERM SCH (10:18)
[2021-07-30] MEDS: Nicotine PATCH 14 MG/24 HR PATCH TRANSDERM SCH (10:18)
[2021-07-30] MEDS: Polyethylene Glycol 3350 17 GM PACKET PO SCH (10:19)
[2021-07-30] MEDS: CMCS: Ketorolac 0.5% OPHTH (NF) 0.5 % 5 ML BTL RIGHT EYE SCH (10:41)
[2021-07-30] MEDS ORDERED: Buprenorphine 2 mg SL TAB SL SCH (11:00)
[2021-07-30 15:42] VITALS: BP 113/69
== END 2021-07-30 18:10 | disposition home or self-care (01) ==
LOC: ED 22:22 → EDHOLD 07-28 02:18 → INTOOBSV 07-28 02:18 → MEDTELE 07-28 06:19
PROVIDERS: ADMIT Student in an Organized Health Care Education/Training Program; ATTEND Student in an Organized Health Care Education/Training Program